=== PATIENT | female | born 1980 ===

== ENCOUNTER 2024-09-14 11:45 | Inpatient (IN) ==
[2024-09-14] MEDS: SODIUM CHLORIDE 0.9% 500 ML IV ONE (12:22)
[2024-09-14] MEDS: METOCLOPRAMIDE HCL INJ 5 MG/ML 2 ML VIAL IV ONE (12:22)
[2024-09-14] MEDS: diphenhydrAMINE 50 MG/ML VIAL IV STA (12:22)
--- NOTE | 2024-09-14 12:23 | Emergency Department Note ---
History of Present Illness General Chief Complaint: Hypertension Time Seen by Provider: 09/14/24 12:05 History of Present Illness Provider complaint: + headache Onset (ago): day(s) 1 Onset description: + gradual Location: + left Severity: moderate Quality: + throbbing, + dull and + constant Relieved By: + nothing Exacerbated By: + none Context: no recent head injury, no tick bite or no recent URI Associated symptoms: + cough; no fever, no nausea, no vomiting, no neck stiffness, no photophobia, no rash, no seizure, no eye redness, no syncope, no vision loss, no numbness, no weakness, no chest pain or no shortness of breath Patient also reports that her blood pressure has been running high.She reports that she has had cough and congestion for the last 2 days. She reports negative COVID test and reports that she was started on prednisone yesterday. Patient also reports palpitations. Patient states she is unsure if she is . Home Medications Medication Instructions Recorded Confirmed Type albuterol sulfate 90 mcg/actuation 2 puff inhalation QID PRN 09/14/24 09/14/24 History aerosol inhaler SOB/Wheezing balsalazide 750 mg capsule 750 mg PO TID 09/14/24 09/14/24 History fluticasone propionate 50 2 spray intranasal BID PRN as 09/14/24 09/14/24 History mcg/actuation nasal directed spray,suspension guaifenesin 600 mg tablet, 600 mg PO AMHS 09/14/24 09/14/24 History extended release 12 hr levothyroxine 100 mcg tablet 100 mcg PO DAILYBB 09/14/24 09/14/24 History loratadine 10 mg tablet (Claritin) 10 mg PO HS 09/14/24 09/14/24 History ozoxownu-hax-obfn-FA-Ca carb-vit K 1 tab PO DAILY 09/14/24 09/14/24 History 18 mg iron-400 mcg-500 mg tablet norethindrone 1 mg-ethinyl 1 tab PO DAILY 09/14/24 09/14/24 History estradiol 20 mcg (21)-iron 75 mg (7) tablet (Eliana Fe 10/17 (28)) omeprazole 20 mg capsule,delayed 20 mg PO QAM 09/14/24 09/14/24 History release prednisone 20 mg tablet 20 mg PO UD 09/14/24 09/14/24 History rosuvastatin 10 mg tablet 10 mg PO QAM 09/14/24 09/14/24 History Allergies Allergy/AdvReac Type Severity Reaction Status Date / Time latex Allergy Mild RASH Verified 09/14/24 15:58 gluten Allergy Unknown Gastrointestinal Verified 09/14/24 15:58 Upset Past Med/Surg History Problem List (Updated 09/14/24 @ 20:15 by Tez Balbuena MD) Hypertensive crisis (Acute) Tachycardia Hypertensive urgency Elevated troponin (Acute) Heart palpitations (Acute) Headache (Acute) Upper respiratory infection Rotator cuff tendinitis Medical History No pertinent past medical history No pertinent family history Surgical History No pertinent past surgical history Social History Smoking Status: Never smoker Hx Alcohol Use: No Hx Substance Use: No Preferred Language: Malagasy Communication Ability: Effective Senior Planning Manager Required: No Beliefs That Will Affect Care: None Current Living Situation: Spouse Current Living Situation Comment: Lives at home with Feels Safe at Home: Yes Safety Concerns: Feels Safe At This Time Assistive Devices: Glasses and Hospital Bed Physical Exam Vital Signs Vital Signs - 24 hr 09/14/24 11:53 09/14/24 12:12 09/14/24 12:14 Temperature 36.7 C Temperature Source Oral Pulse Rate 106 H 105 H Pulse Rate from SpO2 Sensor Respiratory Rate 19 Respiratory Effort / Characteristics Non-Labored Spontaneous Respiratory Depth Normal Respiratory Pattern Regular Blood Pressure 171/110 H Blood Pressure Mean 130 Pulse Oximetry 96 Oxygen Delivery Method Room Air Room Air Sepsis Recent Fever Within 48 Hours No Sepsis New/Unexplained Change in Mental Status N/A Sepsis Action Taken by Nursing No Action Required 09/14/24 12:33 09/14/24 13:00 09/14/24 13:51 Temperature Temperature Source Pulse Rate 98 H 99 H Pulse Rate from SpO2 Sensor 99 H 99 H Respiratory Rate 12 17 Respiratory Effort / Characteristics Respiratory Depth Respiratory Pattern Blood Pressure 174/100 H 133/108 H 165/109 H Blood Pressure Mean 124 116 133 Pulse Oximetry 97 95 Oxygen Delivery Method Room Air Sepsis Recent Fever Within 48 Hours Sepsis New/Unexplained Change in Mental Status Sepsis Action Taken by Nursing 09/14/24 13:57 09/14/24 14:00 09/14/24 14:12 Temperature Temperature Source Pulse Rate 101 H 102 H Pulse Rate from SpO2 Sensor 101 H 103 H Respiratory Rate 15 15 Respiratory Effort / Characteristics Respiratory Depth Respiratory Pattern Blood Pressure 182/104 H Blood Pressure Mean 121 Pulse Oximetry 97 95 Oxygen Delivery Method Room Air Room Air Sepsis Recent Fever Within 48 Hours Sepsis New/Unexplained Change in Mental Status Sepsis Action Taken by Nursing 09/14/24 14:27 09/14/24 14:30 09/14/24 14:45 Temperature Temperature Source Pulse Rate 101 H 103 H Pulse Rate from SpO2 Sensor 101 H 103 H Respiratory Rate 17 15 Respiratory Effort / Characteristics Respiratory Depth Respiratory Pattern Blood Pressure 178/107 H Blood Pressure Mean 135 Pulse Oximetry 96 95 Oxygen Delivery Method Room Air Room Air Sepsis Recent Fever Within 48 Hours Sepsis New/Unexplained Change in Mental Status Sepsis Action Taken by Nursing 09/14/24 15:25 Temperature Temperature Source Pulse Rate 111 H Pulse Rate from SpO2 Sensor Respiratory Rate Respiratory Effort / Characteristics Respiratory Depth Respiratory Pattern Blood Pressure 179/109 H Blood Pressure Mean Pulse Oximetry Oxygen Delivery Method Sepsis Recent Fever Within 48 Hours Sepsis New/Unexplained Change in Mental Status Sepsis Action Taken by Nursing Physical Exam GENERAL: She is oriented to person, place, and time. She appears well-developed and well-nourished. She does not appear distressed. HENT: Exam performed. -Head: Normocephalic and atraumatic. -Right Ear: External ear normal. No mastoid erythema -Left Ear: External ear normal. No mastoid erythema -Mouth/Throat: The oropharynx is clear and moist. No trismus in the jaw. No dental abscesses or uvula swelling. No oropharyngeal exudate or tonsillar abscesses. EYES: Conjunctivae and EOM are normal. Pupils are equal, round, and reactive to light. Right eye exhibits no discharge. Left eye exhibits no discharge. No scleral icterus. NECK: Normal range of motion. Neck supple. No JVD present.No rigidity. No tracheal deviation and normal range of motion present. CV: Normal rate, regular rhythm, normal heart sounds and intact distal pulses. There is no peripheral edema. Palpable radial pulses bue. PULM/CHEST: Effort normal and breath sounds normal. No respiratory distress. No stridor. She has no wheezes. She has no rales. ABD: The abdomen is soft. There is no tenderness. There is no rebound, no guarding. MUSC/SKEL: Normal range of motion. There is no peripheral edema, tenderness or deformity. LYMPH: No cervical adenopathy. NEURO: She is alert and oriented to person, place, and time. She has normal strength. No cranial nerve deficit or sensory deficit. Coordination and gait normal. GCS eye subscore is 4. GCS verbal subscore is 5. GCS motor subscore is 6. Cerebellar tests wnl. SKIN: Skin is warm and dry. She is not diaphoretic. PSYCH: She has a normal mood and affect. Behavior is normal. Judgment and thought content normal. Course Course 1205: The patient was evaluated in room A12. A complete history and physical exam was performed Cardiac monitoring: An order was placed for continuous cardiac monitoring. The monitor shows a rate of 90 with sinus rhythm interpreted by me 1505: Vital signs stable.Labs show leukocytosis of 18.86. Patient is currently on prednisone. D-dimer negative. High-sensitivity troponin elevated at 129.9. Procalcitonin negative. BioFire negative.CT of the head within normal limits. Patient's blood pressure initially improved but then has started going back up again. Patient will be given labetalol dose and admitted to the hospitalist team for hypertensive urgency/elevated troponin. Administered Medications Enoxaparin Sodium (Enoxaparin Inj 40 Mg/0.4 Ml Syr) 40 mg SQ Q24H ETHAN Stop: 10/14/24 17:14 Last Admin: 09/14/24 18:18 Dose: 40 mg Documented By: AEM Discontinued Medications Amlodipine Besylate (Amlodipine Besylate 5 Mg Tab) 5 mg PO NOW ONE Stop: 09/14/24 16:00 Last Admin: 09/14/24 16:35 Dose: 5 mg Documented By: DIYA Diphenhydramine HCl (Diphenhydramine 50 Mg/Ml Vial) 25 mg IV NOW STA Stop: 09/14/24 12:13 Last Admin: 09/14/24 12:22 Dose: 25 mg Documented By: DIYA Sodium Chloride (Nss) 500 mls @ 999 mls/hr IV .Q31M ONE Stop: 09/14/24 12:42 Last Infusion: 09/14/24 13:17 Dose: Infused Documented By: Admin: 09/14/24 12:22 Dose: 999 mls/hr Documented By: DIYA Ketorolac Tromethamine (Ketorolac Tromethamine 15 Mg/Ml Vial) 15 mg IV NOW STA Stop: 09/14/24 15:06 Last Admin: 09/14/24 15:25 Dose: 15 mg Documented By: DIYA Labetalol HCl (Labetalol Hcl Iv 5 Mg/Ml 20ml) 10 mg IV NOW STA Stop: 09/14/24 15:07 Last Admin: 09/14/24 15:25 Dose: 10 mg Documented By: DIYA Metoclopramide HCl (Metoclopramide Hcl Inj 5 Mg/Ml 2 Ml Vial) 5 mg IV ONE ONE Stop: 09/14/24 12:13 Last Admin: 09/14/24 12:22 Dose: 5 mg Documented By: DIYA Medical Decision Making Laboratory Data Attestation: I reviewed the patient's lab results. 09/14/24 12:05 09/14/24 12:05 Lab Results 09/14/24 09/14/24 09/14/24 Range/Units 12:05 12:10 12:30 WBC 18.86 H (4.8-10.8) K/ul RBC 5.03 (4.20-5.40) M/uL Hgb 14.9 (12.0-16.0) g/dl POC Hgb 15.6 (12.0-16.0) g/dl Hct 43.2 (37.0-47.0) % POC Hct 46 (37-47) % MCV 85.9 (80.0-100.0) fL MCH 29.6 (25.0-34.0) pg MCHC 34.5 (32.0-36.0) g/dL RDW Std Deviation 38.6 (36.4-46.3) fL RDW Coeff of Lexi 12.4 (11.5-14.5) % Plt Count 401 H (130-400) K/uL MPV 10.4 (9.4-12.4) fL Immature Gran % (Auto) 0.6 % Neut % (Auto) 91.2 % Lymph % (Auto) 7.3 % [place] % (Auto) 0.7 % Eos % (Auto) 0.0 % Baso % (Auto) 0.2 % Neut # (Auto) 17.19 H (1.40-6.50) K/uL Lymph # (Auto) 1.37 (1.20-3.40) K/uL [place] # (Auto) 0.14 (0.11-0.59) K/uL Eos # (Auto) 0.00 (0.00-0.50) K/uL Baso # (Auto) 0.04 (0.00-0.20) K/uL Immature Gran # (Auto) 0.12 (0.01-0.20) K/uL PT 10.1 (9.0-12.0) Seconds INR 0.9 (0.9-1.1) APTT 24 (21-31) Seconds PTT Ratio 0.9 D-Dimer 460 (0-500) ug/L FEU POC Sodium 140 (135-144) mmol/L Sodium 140 (136-145) mmol/L POC Potassium 3.6 (3.3-5.0) mmol/L Potassium 3.7 (3.5-5.1) mmol/L POC Chloride 105 (101-112) mmol/L Chloride 103 (98-107) mmol/L Carbon Dioxide 24 (21-32) mmol/L POC Total CO2 23 L (24-31) mmol/L Anion Gap 13 H (3-11) POC Anion Gap 16.0 (16-25) mmol/L POC BUN 12 (7-18) mg/dl BUN 12 (6-23) mg/dl Creatinine 0.86 (0.6-1.2) mg/dl POC Creatinine 0.9 (0.6-1.3) mg/dl Est Cr Clr Drug Dosing 92.1 ml/min eGFR 84.32 BUN/Creatinine Ratio 14.0 (10-20) Glucose 128 H (70-99(Fasting)) mg/dl POC Glucose (other) 129 H (70-99) mg/dl Lactate (0.4-2.0) mmol/L Calcium 10.3 (8.6-10.3) mg/dl POC Ioniz Calcium Stoney 1.17 (1.12-1.32) mmol/l Troponin I High Sens 129.9 H* (0-14) pg/ml Lipase 16 (11-82) U/L Procalcitonin < 0.02 (0-0.5) ng/ml Urine Color Yellow Urine Appearance Clear (Clear) Urine pH 6.0 (4.5-7.5) Ur Specific [place] 1.004 (1.000-1.030) Urine Protein Negative (Negative) Urine Glucose (UA) Negative (Negative) Urine Ketones Negative (Negative) Urine Blood Trace H (Negative) Urine Nitrite Negative (Negative) Urine Bilirubin Negative (Negative) Urine Urobilinogen Negative (Negative) Ur Leukocyte Esterase Negative (Negative) Urine WBC (Auto) 0-5 (0-5) /hpf Urine RBC (Auto) 0-2 (0-2) /hpf U Hyaline Cast (Auto) 0-2 (0-2) /lpf U Epithel Cells (Auto) 0-2 (0-2) /hpf Urine Bacteria (Auto) None Seen (None Seen) POC Ur Test (NEG) Adenovirus (PCR) (NotDetected) B. pertussis DNA (PCR) (NotDetected) B.parapertussis DNA PCR (NotDetected) C. pneumoniae DNA (PCR) (NotDetected) Coronavirus OC43 (PCR) (NotDetected) Coronavirus HKU1 (PCR) (NotDetected) Coronavirus 229E (PCR) (NotDetected) SARS-CoV-2 (PCR) (NotDetected) Coronavirus NL63 (PCR) (NotDetected) Human Metapneumovir PCR (NotDetected) Influenza Type A (PCR) (NotDetected) Influenza Type B (PCR) (NotDetected) M. pneumoniae (PCR) (NotDetected) Parainfluenza 1 (PCR) (NotDetected) Parainfluenza 2 (PCR) (NotDetected) Parainfluenza 3 (PCR) (NotDetected) Parainfluenza 4 (PCR) (NotDetected) RSV (PCR) (NotDetected) Entero/Rhino (PCR) (NotDetected) 09/14/24 09/14/24 09/14/24 Range/Units 12:40 13:07 14:33 WBC (4.8-10.8) K/ul RBC (4.20-5.40) M/uL Hgb (12.0-16.0) g/dl POC Hgb (12.0-16.0) g/dl Hct (37.0-47.0) % POC Hct (37-47) % MCV (80.0-100.0) fL MCH (25.0-34.0) pg MCHC (32.0-36.0) g/dL RDW Std Deviation (36.4-46.3) fL RDW Coeff of Lexi (11.5-14.5) % Plt Count (130-400) K/uL MPV (9.4-12.4) fL Immature Gran % (Auto) % Neut % (Auto) % Lymph % (Auto) % [place] % (Auto) % Eos % (Auto) % Baso % (Auto) % Neut # (Auto) (1.40-6.50) K/uL Lymph # (Auto) (1.20-3.40) K/uL [place] # (Auto) (0.11-0.59) K/uL Eos # (Auto) (0.00-0.50) K/uL Baso # (Auto) (0.00-0.20) K/uL Immature Gran # (Auto) (0.01-0.20) K/uL PT (9.0-12.0) Seconds INR (0.9-1.1) APTT (21-31) Seconds PTT Ratio D-Dimer (0-500) ug/L FEU POC Sodium (135-144) mmol/L Sodium (136-145) mmol/L POC Potassium (3.3-5.0) mmol/L Potassium (3.5-5.1) mmol/L POC Chloride (101-112) mmol/L Chloride (98-107) mmol/L Carbon Dioxide (21-32) mmol/L POC Total CO2 (24-31) mmol/L Anion Gap (3-11) POC Anion Gap (16-25) mmol/L POC BUN (7-18) mg/dl BUN (6-23) mg/dl Creatinine (0.6-1.2) mg/dl POC Creatinine (0.6-1.3) mg/dl Est Cr Clr Drug Dosing ml/min eGFR BUN/Creatinine Ratio (10-20) Glucose (70-99(Fasting)) mg/dl POC Glucose (other) (70-99) mg/dl Lactate 1.8 (0.4-2.0) mmol/L Calcium (8.6-10.3) mg/dl POC Ioniz Calcium Stoney (1.12-1.32) mmol/l Troponin I High Sens 85.2 H* D (0-14) pg/ml Lipase (11-82) U/L Procalcitonin (0-0.5) ng/ml Urine Color Urine Appearance (Clear) Urine pH (4.5-7.5) Ur Specific [place] (1.000-1.030) Urine Protein (Negative) Urine Glucose (UA) (Negative) Urine Ketones (Negative) Urine Blood (Negative) Urine Nitrite (Negative) Urine Bilirubin (Negative) Urine Urobilinogen (Negative) Ur Leukocyte Esterase (Negative) Urine WBC (Auto) (0-5) /hpf Urine RBC (Auto) (0-2) /hpf U Hyaline Cast (Auto) (0-2) /lpf U Epithel Cells (Auto) (0-2) /hpf Urine Bacteria (Auto) (None Seen) POC Ur Test NEG (NEG) Adenovirus (PCR) Not Detected (NotDetected) B. pertussis DNA (PCR) Not Detected (NotDetected) B.parapertussis DNA PCR Not Detected (NotDetected) C. pneumoniae DNA (PCR) Not Detected (NotDetected) Coronavirus OC43 (PCR) Not Detected (NotDetected) Coronavirus HKU1 (PCR) Not Detected (NotDetected) Coronavirus 229E (PCR) Not Detected (NotDetected) SARS-CoV-2 (PCR) Not Detected (NotDetected) Coronavirus NL63 (PCR) Not Detected (NotDetected) Human Metapneumovir PCR Not Detected (NotDetected) Influenza Type A (PCR) Not Detected (NotDetected) Influenza Type B (PCR) Not Detected (NotDetected) M. pneumoniae (PCR) Not Detected (NotDetected) Parainfluenza 1 (PCR) Not Detected (NotDetected) Parainfluenza 2 (PCR) Not Detected (NotDetected) Parainfluenza 3 (PCR) Not Detected (NotDetected) Parainfluenza 4 (PCR) Not Detected (NotDetected) RSV (PCR) Not Detected (NotDetected) Entero/Rhino (PCR) Not Detected (NotDetected) Imaging Data Attestation: I personally reviewed and interpreted this imaging study as follows: My Impression: Chest x-ray negative. Airway clear. No pneumothorax. No consolidation. No cardiomegaly or cephalization.. No free air under the diaphragm. No fractures of the skeletal structures. Radiologist's Impression: Chest X-Ray 09/14/24 12:12 XR chest 1V portable HISTORY: 44 years-old Female Chest pain, nonspecific COMPARISON: None TECHNIQUE: AP view of the chest FINDINGS: Cardiomediastinal and hilar silhouettes are within normal limits. There is no pneumothorax, pleural effusion or airspace consolidation. Bones appear grossly intact. IMPRESSION: No acute process. ACT 112: Negative or not required by law. The above report was generated using voice recognition software. It may contain grammatical, syntax or spelling errors. Electronically signed by: Hardik Do M.D. 09/14/2024 12:[address] 09/14/24 12:12 CT head/brain wo con CLINICAL HISTORY: 44 years-old Female with maloney. Acute tension headache TECHNIQUE: Multiple axial CT images of the head were obtained without contrast. A dose lowering technique was utilized adhering to the principles of ALARA. CT DOSE: 625.8 mGy.cm COMPARISON: None. FINDINGS: No acute intracranial hemorrhage, midline shift, extra-axial mass, hydrocephalus, territorial ischemia or abnormal extra-axial collection. 6 mm calcified extra-axial focus adjacent to the left cerebrum on image 18 series 3 may represent a small meningioma. 3.4 cm left middle cranial fossa arachnoid cyst, image 9 series 2. There is only minimal mass effect upon the adjacent temporal lobe. The calvarium is intact. Mild mucosal thickening of the ethmoid air cells and left maxillary sinus with small left maxillary air-fluid level. The mastoid air cells are clear. IMPRESSION: 1. No acute intracranial abnormality. 2. Left middle cranial fossa arachnoid cyst. 3. Mild paranasal sinus disease. ACT 112: Negative or not required by law. The above report was generated using voice recognition software. It may contain grammatical, syntax or spelling errors. Electronically signed by: Hardik Do M.D. 09/14/2024 2:01 PM ECG Data Attestation: I personally reviewed and interpreted this ECG as follows: Rate (beats per minute): 96 Rhythm: normal sinus Findings: no ST depression, no ST elevation or no prolonged QT MDM Narrative 1205: The patient was evaluated in room A12. A complete history and physical exam was performed Cardiac monitoring: An order was placed for continuous cardiac monitoring. The monitor shows a rate of 90 with sinus rhythm interpreted by me 1505: Vital signs stable.Labs show leukocytosis of 18.86. Patient is currently on prednisone. D-dimer negative. High-sensitivity troponin elevated at 129.9. Procalcitonin negative. BioFire negative.CT of the head within normal limits. Patient's blood pressure initially improved but then has started going back up again. Patient will be given labetalol dose and admitted to the hospitalist team for hypertensive urgency/elevated troponin. Impression & Plan Hypertensive crisis, Elevated troponin, Headache, Heart palpitations Discharge Plan Visit Data Chief Complaint: Hypertension ED Provider: Tez Balbuena Discharge Problem: Hypertensive crisis, Elevated troponin, Headache, Heart palpitations Patient Disposition: Admitted As Inpatient Discharge Instructions Interventions: ED Discharge Assessment Last Done: 09/14/24 16:46
[2024-09-14 12:25] LABS: iSTAT Creatinine 0.9 mg/dl (0.6-1.3); iSTAT Hemoglobin 15.6 g/dl (12.0-16.0); iSTAT Ionized Calcium 1.17 mmol/l (1.12-1.32); iSTAT Potassium 3.6 mmol/L (3.3-5.0)
[2024-09-14 12:32] LABS: Hematocrit (blood only) 43.2 % (37.0-47.0); Hemoglobin 14.9 g/dl (12.0-16.0); Mean Corpuscular Hemoglobin 29.6 pg (25.0-34.0); Mean Corpuscular Hgb Conc 34.5 g/dL (32.0-36.0); Mean Corpuscular Volume 85.9 fL (80.0-100.0); Mean Platelet Volume 10.4 fL (9.4-12.4); Platelet Count 401 K/uL (130-400); RDW Coefficient of Variation 12.4 % (11.5-14.5); RDW Standard Deviation 38.6 fL (36.4-46.3); Red Blood Count 5.03 M/uL (4.20-5.40); White Blood Count 18.86 K/ul (4.8-10.8)
--- NOTE | 2024-09-14 12:40 | XRay Report ---
XR chest 1V portable HISTORY: 44 years-old Female Chest pain, nonspecific COMPARISON: None TECHNIQUE: AP view of the chest FINDINGS: Cardiomediastinal and hilar silhouettes are within normal limits. There is no pneumothorax, pleural e ffusion or airspace consolidation. Bones appear grossly intact. IMPRESSION: No acute process. ACT 112: Negative or not required by law. The above report was generated using voice recognition software. It may contain grammatical, syntax o r spelling errors. Electronically signed by: Hardik Do M.D. 09/14/2024 12:39 PM
[2024-09-14 12:48] LABS: Calcium 10.3 mg/dl (8.6-10.3); Creatinine Clr Calc Pharmacy 92.1 ml/min; Potassium 3.7 mmol/L (3.5-5.1)
[2024-09-14 12:55] LABS: Basophils # (auto) 0.04 K/uL (0.00-0.20); Basophils % (auto) 0.2 %; Immature Granulocytes # (auto) 0.12 K/uL (0.01-0.20); Immature Granulocytes % (auto) 0.6 %; Lymphocytes # (auto) 1.37 K/uL (1.20-3.40); Lymphocytes % (auto) 7.3 %; Monocytes # (auto) 0.14 K/uL (0.11-0.59); Monocytes % (auto) 0.7 %; Neutrophils # (auto) 17.19 K/uL (1.40-6.50); Neutrophils % (auto) 91.2 %
[2024-09-14 12:58] LABS: D Dimer 460 ug/L FEU (0-500); INR 0.9 (0.9-1.1); Partial Thromboplastin Ratio 0.9; Partial Thromboplastin Time 24 Seconds (21-31); Prothrombin Time 10.1 Seconds (9.0-12.0); Troponin I High Sensitivity 129.9 pg/ml (0-14)
--- NOTE | 2024-09-14 14:03 | CT Scan Report ---
CT head/brain wo con CLINICAL HISTORY: 44 years-old Female with maloney. Acute tension headache TECHNIQUE: Multiple axial CT images of the head were obtained without contrast. A dose lowering tech nique was utilized adhering to the principles of ALARA. CT DOSE: 625.8 mGy.cm COMPARISON: None. FINDINGS: No acute intracranial hemorrhage, midline shift, extra-axial mass, hydrocephalus, territorial ischemi a or abnormal extra-axial collection. 6 mm calcified extra-axial focus adjacent to the left cerebrum on image 18 series 3 may represent a small meningioma. 3.4 cm left middle cranial fossa arachnoid cys t, image 9 series 2. There is only minimal mass effect upon the adjacent temporal lobe. The calvarium is intact. Mild mucosal thickening of the ethmoid air cells and left maxillary sinus w ith small left maxillary air-fluid level. The mastoid air cells are clear. IMPRESSION: 1. No acute intracranial abnormality. 2. Left middle cranial fossa arachnoid cyst. 3. Mild paranasal sinus disease. ACT 112: Negative or not required by law. The above report was generated using voice recognition software. It may contain grammatical, syntax o r spelling errors. Electronically signed by: Hardik Do M.D. 09/14/2024 2:01 PM
[2024-09-14 14:30] LABS: Adenovirus PCR Not Detected (NotDetected); Bordetella parapertussis PCR Not Detected (NotDetected); Bordetella pertussis PCR Not Detected (NotDetected); Chlamydia pneumoniae PCR Not Detected (NotDetected); Coronavirus 229E PCR Not Detected (NotDetected); Coronavirus CoV-2 (COVID19)PCR Not Detected (NotDetected); Coronavirus HKU1 PCR Not Detected (NotDetected); Coronavirus NL63 PCR Not Detected (NotDetected); Coronavirus OC43PCR Not Detected (NotDetected); Human Metapneumovirus PCR Not Detected (NotDetected); Influenza A PCR Not Detected (NotDetected); Influenza B PCR Not Detected (NotDetected); Mycoplasma pneumoniae PCR Not Detected (NotDetected); Parainfluenza Virus 1 PCR Not Detected (NotDetected); Parainfluenza Virus 2 PCR Not Detected (NotDetected); Parainfluenza Virus 3 PCR Not Detected (NotDetected); Parainfluenza Virus 4 PCR Not Detected (NotDetected); Respiratory Syncytial VirusPCR Not Detected (NotDetected); Rhinovirus/Enterovirus PCR Not Detected (NotDetected)
--- NOTE | 2024-09-14 15:15 | History & Physical Report ---
Date of Service September 14, 2024 Assessment & Plan (1) Hypertensive urgency: (2) Heart palpitations: (3) Tachycardia: (4) Elevated troponin: (5) Upper respiratory infection: Plan Vanesa Casas is a 44-year-old female with past medical history significant for acquired hypothyroidism, dyslipidemia, GERD with esophagitis, Crohn's disease, low back pain with right-sided sciatica and exercise induced asthma who presented to the ED via EMS on 09/14/2024 for evaluation of multiple complaints including headache, heart palpitations and upper respiratory tract infection symptoms. 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 She started to feel a bit shaky and "off" prior to a performance she did earlier today at school. She noticed that her heart rate was significantly elevated at 170bpm on her Apple Watch during the performance. She also started to develop a pounding headache, heart palpitations, left-sided neck pain and tension between her shoulder blades during the performance. She also noticed some tingling in both of her hands when the headache started but this has since resolved. She also felt somewhat short of breath during this episode during her performance however that has also since resolved. Patient notes a considerable amount of stress at work lately. Hypertensive Urgency, Headache: BP significantly elevated on presentation at 171/110mmHg. Head CT did incidentally note a 3.4cm left middle cranial fossa arachnoid cyst without any evidence of ICH or midline shift. She received a headache cocktail in the ED consisting of IV Reglan, IV Toradol and IV Benadryl with improvement of her headache. Received 10 mg of IV labetalol in the ED at 15:25. BP was 165/105mmHg at time of our assessment. Ordered 5mg po amlodipine to be given in the ED. Will start patient on 5mg po amlodipine daily beginning tomorrow AM. Close BP monitoring. PRN IV labetalol 10mg Q4H for SBP>165. PRN pain control. Heart Palpitations/Tachycardia, Elevated Troponin: Palpitations seem to have resolved. Tachycardia noted on presentation with a heart rate of 107bpm. HR still in the low 100s at the time of our assessment - sinus tachycardia seen on telemetry. Initial troponin 129.9, repeat troponin improved to 85.2; presenting EKG without any evidence of acute ST changes. Will continue to trend troponin Q6H x 3. Obtain resting echocardiogram. EKG daily x 2. EKG with chest pain PRN. Would benefit from cardiology consult if her echo results were to come back abnormal and/or her troponin level were to rise. URI Symptoms - Likely Viral Infection: Patient was prescribed an oral prednisone taper course yesterday (09/13) due to suspected viral upper respiratory tract infection. She has been dealing with a cough, sinus congestion and wheezing since last Thursday. Wheezing has improved on the oral prednisone course however she still has an ongoing cough in addition to sinus congestion. Leukocytosis noted on presentation with WBC count of 18k - likely secondary to prednisone use. Procalcitonin negative. Presenting CXR unremarkable, respiratory BioFire panel also negative. Head CT notes mild paranasal sinus disease. Low suspicion for overlying bacterial infection at this time. Hold prednisone for now ISO hypertension. Continue supportive measures with scheduled Claritin, Flonase and Mucinex. Encourage use of incentive spirometer and flutter valve. Other Chronic Medical Conditions: * Crohn's Disease - Continue balsalazide. GERD - Continue omeprazole. * Hypothyroidism - Check TSH in AM, continue levothyroxine. HLD - Continue rosuvastatin. DVT Prophylaxis: SQ Lovenox Code Status: FULL CODE PCP: Brigido Pérez MD Disposition: Admit to Med/Telemetry Patient seen in collaboration with Dr. Caldera. Please see addendum. I spent a total of 50 minutes coordinating, documenting, and providing care for this patient excluding time spent in the performance of separately billed services. This included personally reviewing all current laboratories and imaging studies, medical reconciliation, outpatient chart review and discussion with specialists. This chart was completed in part utilizing Speech Voice Recognition Software. Grammatical errors, random word insertions, pronoun errors, and incomplete sentences are an occasional consequence of this system due to software limitations, ambient noise, and hardware issues. Any formal questions or concerns about the content, text, or information contained within the body of this dictation should be directly addressed to the provider for clarification. History of Present Illness Chief Complaint: Headache, Palpitations & URI Symptoms Primary Care Provider: Brigido Pérez MD Vanesa Casas is a 44-year-old female with past medical history significant for acquired hypothyroidism, dyslipidemia, GERD with esophagitis, Crohn's disease, low back pain with right-sided sciatica and exercise induced asthma who presented to the ED via EMS on 09/14/2024 for evaluation of multiple complaints including headache, heart palpitations and upper respiratory tract infection symptoms. History obtained from the patient and associated chart review. Patient seen at bedside with Dr. Caldera. 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 She started to feel a bit shaky and "off" prior to a performance she did earlier at school. She noticed that her heart rate was significantly elevated at 170bpm on her Apple Watch during the performance. She also started to develop a "pounding" headache, heart palpitations, left-sided neck pain and tension between her shoulder blades during the performance. She also noticed some tingling in both of her hands when the headache started but this has since resolved. She also felt somewhat short of breath during this episode during her performance however that has also since resolved. Patient mentions that she is currently being treated for a suspected viral upper respiratory tract infection with an oral prednisone taper course which she was prescribed yesterday by her PCP. She has been dealing with a cough, sinus congestion and wheezing since last Thursday. She reports that her wheezing has improved on the oral prednisone course however she still has an ongoing cough in addition to persistent sinus congestion. She was taking Mucinex at home and using Vicks VapoRub with some relief. She does wear a mask rather routinely as her is a kidney transplant recipient. She endorses some stress with work lately which she thinks may be contributing to her symptoms. She denies any chest pain, recent fevers, abdominal pain or urinary/bowel habit changes. Tachycardia noted on presentation with a heart rate of 107bpm. BP also significantly elevated on presentation at 171/110mmHg. HR still in the low 100s at the time of our assessment - sinus tachycardia seen on telemetry. Received 10 mg of IV labetalol in the ED at 15:25. BP was 165/105mmHg at time of our assessment. Initial laboratory workup notable for leukocytosis with white blood cell count of 18.8k and troponin of 129.9; presenting EKG without any evidence of acute ST changes and repeat troponin improved to 85.2 at 14:33. Chest x-ray is unremarkable and respiratory BioFire panel was negative. Elevation in white blood cell count likely related to recent prednisone use. Head CT was notable for a 3.4cm left middle cranial fossa arachnoid cyst and mild paranasal sinus disease. She received a headache cocktail in the ED consisting of IV Reglan, IV Toradol and IV Benadryl with improvement of her headache. Allergies Allergy/AdvReac Type Severity Reaction Status Date / Time latex Allergy Mild RASH Verified 09/14/24 15:58 gluten Allergy Unknown Gastrointestinal Verified 09/14/24 15:58 Upset Home Medications Medication Instructions Recorded Confirmed Type albuterol sulfate 90 mcg/actuation 2 puff inhalation QID PRN 09/14/24 09/14/24 History aerosol inhaler SOB/Wheezing balsalazide 750 mg capsule 750 mg PO TID 09/14/24 09/14/24 History fluticasone propionate 50 2 spray intranasal BID PRN as 09/14/24 09/14/24 Histor y mcg/actuation nasal directed spray,suspension guaifenesin 600 mg tablet, 600 mg PO AMHS 09/14/24 09/14/24 History extended release 12 hr levothyroxine 100 mcg tablet 100 mcg PO DAILYBB 09/14/24 09/14/24 History loratadine 10 mg tablet (Claritin) 10 mg PO HS 09/14/24 09/14/24 History [id number] carb-vit K 1 tab PO DAILY 09/14/24 09/14/24 History 18 mg iron-400 mcg-500 mg tablet norethindrone 1 mg-ethinyl 1 tab PO DAILY 09/14/24 09/14/24 History estradiol 20 mcg (21)-iron 75 mg (7) tablet (Eliana Fe 10/17 (28)) omeprazole 20 mg capsule,delayed 20 mg PO QAM 09/14/24 09/14/24 History release prednisone 20 mg tablet 20 mg PO UD 09/14/24 09/14/24 History rosuvastatin 10 mg tablet 10 mg PO QAM 09/14/24 09/14/24 History Past Med/Surg History Problem List (Updated 09/14/24 @ 16:39 by Delmy Martinez PA-C) Tachycardia Hypertensive urgency Elevated troponin Heart palpitations Headache Upper respiratory infection Rotator cuff tendinitis Medical History No pertinent past medical history No pertinent family history Surgical History No pertinent past surgical history Social History Smoking Status: Never smoker Hx Alcohol Use: No Hx Substance Use: No Preferred Language: Malay Communication Ability: Effective Airfield Services Officer Required: No Beliefs That Will Affect Care: None Current Living Situation: Spouse Current Living Situation Comment: Lives at home with Feels Safe at Home: Yes Safety Concerns: Feels Safe At This Time Assistive Devices: Glasses and Hospital Bed Review of Systems Review of Systems: At least ten systems reviewed and negative, except as noted in the HPI. Physical Exam Physical Exam: Please refer to Dr. Caldera's addendum for physical examination findings. Results & Data Results & Data Vital Signs (Past 12 Hours) Vital Signs Temp Pulse Resp BP Pulse Ox O2 Del Method 09/14/24 14:45 103 H 15 95 Room Air 09/14/24 14:30 178/107 H 09/14/24 14:27 101 H 17 96 Room Air 09/14/24 14:12 102 H 15 95 Room Air 09/14/24 14:00 182/104 H 09/14/24 13:57 101 H 15 97 Room Air 09/14/24 13:51 165/109 H 09/14/24 13:00 99 H 17 133/108 H 95 09/14/24 12:33 98 H 12 174/100 H 97 Room Air 09/14/24 12:14 105 H 09/14/24 12:12 Room Air 09/14/24 11:53 36.7 C 106 H 19 171/110 H 96 Room Air Laboratory Results Short CBC 09/14/24 Range/Units 12:05 WBC 18.86 H (4.8-10.8) K/ul Hgb 14.9 (12.0-16.0) g/dl Hct 43.2 (37.0-47.0) % Plt Count 401 H (130-400) K/uL BMP 09/14/24 12:05 Sodium 140 Potassium 3.7 Chloride 103 Carbon Dioxide 24 BUN 12 Creatinine 0.86 Glucose 128 H Calcium 10.3 Diagnostic Findings Chest X-Ray 09/14/24 12:12 XR chest 1V portable HISTORY: 44 years-old Female Chest pain, nonspecific COMPARISON: None TECHNIQUE: AP view of the chest FINDINGS: Cardiomediastinal and hilar silhouettes are within normal limits. There is no pneumothorax, pleural effusion or airspace consolidation. Bones appear grossly intact. IMPRESSION: No acute process. ACT 112: Negative or not required by law. The above report was generated using voice recognition software. It may contain grammatical, syntax or spelling errors. Electronically signed by: Hardik Do M.D. 09/14/2024 12:[address] 09/14/24 12:12 CT head/brain wo con CLINICAL HISTORY: 44 years-old Female with maloney. Acute tension headache TECHNIQUE: Multiple axial CT images of the head were obtained without contrast. A dose lowering technique was utilized adhering to the principles of ALARA. CT DOSE: 625.8 mGy.cm COMPARISON: None. FINDINGS: No acute intracranial hemorrhage, midline shift, extra-axial mass, hydrocephalus, territorial ischemia or abnormal extra-axial collection. 6 mm calcified extra-axial focus adjacent to the left cerebrum on image 18 series 3 may represent a small meningioma. 3.4 cm left middle cranial fossa arachnoid cyst, image 9 series 2. There is only minimal mass effect upon the adjacent temporal lobe. The calvarium is intact. Mild mucosal thickening of the ethmoid air cells and left maxillary sinus with small left maxillary air-fluid level. The mastoid air cells are clear. IMPRESSION: 1. No acute intracranial abnormality. 2. Left middle cranial fossa arachnoid cyst. 3. Mild paranasal sinus disease. ACT 112: Negative or not required by law. The above report was generated using voice recognition software. It may contain grammatical, syntax or spelling errors. Electronically signed by: Hardik Do M.D. 09/14/2024 2:01 PM Medications Administered Discontinued Medications Diphenhydramine HCl (Diphenhydramine 50 Mg/Ml Vial) 25 mg IV NOW STA Stop: 09/14/24 12:13 Last Admin: 09/14/24 12:22 Dose: 25 mg Documented By: DIYA Sodium Chloride (Nss) 500 mls @ 999 mls/hr IV .Q31M ONE Stop: 09/14/24 12:42 Last Infusion: 09/14/24 13:17 Dose: Infused Documented By: Admin: 09/14/24 12:22 Dose: 999 mls/hr Documented By: DIYA Metoclopramide HCl (Metoclopramide Hcl Inj 5 Mg/Ml 2 Ml Vial) 5 mg IV ONE ONE Stop: 09/14/24 12:13 Last Admin: 09/14/24 12:22 Dose: 5 mg Documented By: DIYA Code Status & VTE Plan Code Status FULL CODE Supervising Physician Co-Signing Physician Notes Patient seen and examined Reports URI symptoms and was started on prednisone 60mg for past 2 days Reports intermittent left sided neck pain/back pain which she associated with stress but today while at work, developed frontal headache with worsening left neck pain/back pain associated with left hand tingling Denied chest pain On exam, General: Well hydrated, no acute distress and not ill appearing Eyes: PERRL, conjunctivae normal, not pale, anicteric sclerae, EOM intact bilaterally ENMT: External ear and nose normal, oropharynx normal Neck: Normal visual inspection, no tracheal deviation, no tenderness on palpation Respiratory: Normal respiratory effort, no respiratory distress, lungs clear to auscultation, no crackles and no wheezes Cardiovascular: RRR S1 S2 Gastrointestinal (Abdomen): Abdomen is not distended, soft, non-tender to palpation, no guarding, no palpable hepatosplenomegaly, normal bowel sounds Musculoskeletal: No pedal edema Neurologic: Alert and oriented x 3, No focal weakness, sensation grossly intact Psychiatric: Euthymic affect Labs notable for WBC 18K, Trop 85 CT head did not show any acute abnormality but noted left midline cranial fossa arachnoid cyst, mild paranasal sinus disease. Elevated blood pressure Start amlodipine 5mg daily for hypertension and monitor Stop prednisone for now and monitor Continue antihistamine Tele monitor Trend trop. TTE Reviewed CT findings with patient I spent a total of 50 minutes coordinating, documenting and providing care for this patient excluding time spent in performance of separately billed services (5) Upper respiratory infection URI type: unspecified viral URI Qualified Code(s): J06.9 - Acute upper respiratory infection, unspecified
[2024-09-14] MEDS: LABETALOL HCL IV 5 MG/ML 20ML IV STA (15:25)
[2024-09-14] MEDS: KETOROLAC TROMETHAMINE 15 MG/ML VIAL IV STA (15:25)
[2024-09-14 16:01] LABS: Appearance Urine Clear (Clear); Bacteria Urine Automated None Seen (None Seen); Bilirubin Urine Negative (Negative); Blood Urine Trace (Negative); Cast Urine Automated 0-2 /lpf (0-2); Color Urine Yellow; Epithelial Cell Urine Auto 0-2 /hpf (0-2); Glucose Urine UA Negative (Negative); Ketones Urine Negative (Negative); Leukocyte Esterase Urine Negative (Negative); Nitrite Urine Negative (Negative); Protein Urine Negative (Negative); RBC Urine Automated 0-2 /hpf (0-2); Specific Gravity Urine 1.004 (1.000-1.030); Urobilinogen Urine Negative (Negative); WBC Urine Automated 0-5 /hpf (0-5)
[2024-09-14] MEDS: amLODIPine BESYLATE 5 MG TAB PO ONE (16:35)
[2024-09-14] MEDS ORDERED: LABETALOL HCL IV 5 MG/ML 20ML IV PRN (17:06)
[2024-09-14] MEDS ORDERED: POLYETHYLENE (MIRALAX) 17 GM PACK PO PRN (17:06)
[2024-09-14] MEDS ORDERED: KETOROLAC TROMETHAMINE 15 MG/ML VIAL IV PRN ×2 (17:06→21:00)
[2024-09-14] MEDS ORDERED: NITROGLYCERIN SL 0.4 MG/TAB TAB SL PRN (17:06)
[2024-09-14] MEDS ORDERED: ONDANSETRON INJ 2 MG/ML 2 ML VIAL IV PRN (17:06)
[2024-09-14 17:13] VITALS: RESP 18
[2024-09-14] MEDS: ENOXAPARIN INJ 40 MG/0.4 ML SYR SQ SCH (18:18)
[2024-09-14] MEDS: LORATADINE 10 MG TAB PO SCH (21:14)
[2024-09-14] MEDS: guaiFENesin 600 MG TABCR PO SCH (21:15)
--- OUTSIDE RECORDS SUMMARY | 2024-09-14 23:29 | External Medical Summary | Summary of Care ---
Author Name Unknown Organization [facility] Address [address] [facility] [place] [address] Phone [phone] Care Team Providers Care Salesforce Consultant Name Role Phone Brigido Pérez MD Primary Care Provider + Reason for Visit * Reason Comments Medical Nutrition Therapy Follow Up Encounter Details Date Type Department Care Team (Latest Contact Info) Description 07/20/2024 3:30 PM EDT [facility] [address] [place] [id number] Courtney Mendoza, MONICA [address] [place] [id number] Obesity, Class I, BMI 30-34.9*; Crohn's disease of small intestine without complication (HCC); Dietary counseling and surveillance Allergies Active Allergy Reactions Criticality Noted Date Comments Adhesive Tape Rash 09/07/2018 Amoxicillin-Pot Clavulanate Diarrhea 01/20/20 19 Citalopram Hydrobromide Tachycardia 10/03/2013 Gluten 04/20/2014 Gluten Meal 09/07/2017 Latex Rash 08/02/2013 Sulfa Antibiotics Rash 03/20/2016 documented as of this encounter (statuses as of 07/20/2024) Medications Medication Sig Dispensed Refills Start Date End Date Status WOMENS MULTI VITAMIN & MINERAL PO TABS once daily Active Probiotic Product (PROBIOTIC & ACIDOPHILUS EX ST) Capsule Take 1 Cap by mouth daily. Active Loratadine 10 MG Oral Tablet Take 1 Tablet by mouth in the morning. 30 Tab 11 02/03/2020 Active fluticasone (FLONASE) 50 MCG/ACT nasal spray INSTILL 2 SPRAYS INTO EACH NOSTRIL TWICE DAILY 16 g 5 03/15/2020 Active Additional Information Patient not taking.Reported on 07/14/2024 LORazepam 0.5 MG Oral Tablet (Ativan)Indications: Irritable bowel syndrome, unspecified type,REANNA (generalized anxiety disorder) 1 TABLET EVERY 8 HOURS NEEDED FOR ANXIETY 20 Tablet 11/09/2021 Active D3-1000 25 MCG (1000 UT) Oral Capsule (Cholecalciferol) Take 1 Capsule by mouth in the morning. Active Ondansetron HCl 4 MG Oral TabletIndications:Be nign paroxysmal positional vertigo, unspecified laterality Take 1 Tablet by mouth every 6 hours as needed for Nausea. 30 Tablet 07/06/2023 Active Albuterol Sulfate HFA 108 (90 Base) MCG/ACT Inhalation Aerosol SolutionIndications: Bronchospasm, exercise-induced Inhale 2 Puffs by mouth in the morning and 2 Puffs at noon and 2 Puffs in the evening and 2 Puffs before bedtime. 8 g 3 10/07/2023 Active Eliana FE 10/17 1-20 MG-MCG Oral Tablet (Norethin Julian-Eth Estrad-FE)Indication s:General counseling for prescription of oral contraceptives TAKE 1 TABLET DAILY 84 Tablet 3 11/16/2023 Active Rosuvastatin Calcium 10 MG Oral Tablet (Crestor) Take 1 Tablet by mouth in the morning. 90 Tablet 3 12/09/2023 Active Levothyroxine Sodium 100 MCG Oral Tablet (Levoxyl) TAKE 1 TABLET BY MOUTH ONCE DAILY IN THE MORNING AT LEAST 30 MINUTES PRIOR TO BREAKFAST/OTHER MEDS 90 Tablet 3 02/09/2024 Active Omeprazole 20 MG Oral Capsule Delayed Release (PriLOSEC) TAKE 1 CAPSULE IN THE MORNING 90 Capsule 1 06/17/2024 Active Balsalazide Disodium 750 MG Oral CapsuleIndications:C rohn's disease of small intestine without complication (HCC) TAKE 1 CAPSULE IN THE MORNING, 1 CAPSULE AT NOON AND 1 CAPSULE BEFORE BEDTIME 270 Capsule 1 07/04/2024 Active predniSONE 10 MG Oral Tablet (Deltasone)Indicatio ns:Dermatitis Take 5 tabs for 2 days, 4 tabs for 2 days, 3 tabs for 2 days, 2 tabs for 2 days 1 tab for 2 days 30 Tablet 07/08/2024 Active COVID-19 At Home Antigen Test In Vitro KitIndications:Viral URI with cough Use as directed. 1 Each 07/08/2024 Active Azithromycin 250 MG Oral Tablet (Zithromax Z-Brad)Indications:Br onchitis, complicated Take two tablets by mouth on first day, then 1 tablet daily until gone 6 Tablet 07/14/2024 Active documented as of this encounter (statuses as of 07/20/2024) Active Problems Problem Noted Date Diagnosed Date Dyslipidemia, goal LDL below 70 12/10/2023 Crohn's disease of small intestine without compl ication 11/25/2022 Need for pneumococcal vaccination 11/25/2022 History of lumbar laminectomy 05/21/2019 Well adult exam 12/12/2016 Overview: 08/20 colon WNL benoit 3y 2020--BMP not covered as screening lab 10.19 colon WNL. Benoit 3y due to Crohns 12/13 had kidney transplant. Low back pain with right-sided sciatica 12/13/19 17 Overview: 08/13- xray L4-s1 DDD Bartholin's gland cyst 01/31/2016 Crohn's disease 11/04/2011 Gastroesophageal reflux disease with esophagitis 11/04/2011 Acquired hypothyroidism 07/01/2010 documented as of this encounter (statuses as of 07/20/2024) Immunizations Name Administration Dates Next Due COVID-19 mRNA, LNP-s, No Pre serve, 2-Dose Series (TroopSwap) 07/02/2022,08/14/2021,12/15/2020,2020 Pneumococcal Conjugate Vacci ne, 20-valent ([id number]) 11/25/2022 Seasonal Influenza Vac., MDV , IM, 0.5 mL (Fluzone) 08/03/2014,08/22/2013,06/23/2012,2010,07/01/2010 Seasonal Influenza, PF, 6 M & above, IM , (FluLaval or Fluzone) 07/23/2023,07/24/2022,08/09/2021,2019,06/29/2019,07/28/2018,07/23/2017 Seasonal Influenza, Quadriva lent, No Preserve, IM 08/08/2016,08/17/2015 TDAP (age 10 and older)(Boostrix) 11/09/2021 TDAP, Age 7 and older, IM (Adacel) 09/02,07/01/2010(Deferred: Patient Refused) documented as of this encounter Social History Tobacco Use Types Packs/Day Years Used Date Smoking Tobacco: Never Smokeless Tobacco: Never Alcohol Use Standard Drinks/Week Comments Yes 0 (1 standard drink = 0.6 oz pur e alcohol) rarely PHQ-2 Answer Date Recorded PHQ Adult Total Score 0 12/09/2023 Hunger Vital Sign Answer Date Recorded Within the past 12 months, y ou worried that your food would run out before you got the money to buy more. Never true 12/08/19 24 Within the past 12 months, t he food you bought just didn't last and you didn't have money to get more. Never true 12/08/2023 Childcare Answer Date Recorded Do you feel overwhelmed with taking care of a child, family member or friend? No 12/08/2023 Does your family need help f inding childcare? (Household - for ages 0-17 years) Not on file 12/08/2023 Clothing Answer Date Recorded Have you been unable to get clothing when it was really needed? Yes 12/08/2023 Is your family able to get c lothes or diapers when needed? (Household - for ages 0-17 years) Not on file 12/08/2023 Personal Safety Answer Date Recorded Do you feel unsafe or have concerns for your saf ety? No 12/08/2023 Do you have concerns for you r family's safety? (Household - for ages 0-17 years) Not on file 12/08/2023 Utilities Answer Date Recorded Do you have trouble paying y our heating, water, or electric bill? No 12/08/2023 Is your family able to pay t he heat, water, or electric bill? (Household - for ages 0-17 years) Not on file 12/08/2023 Does your family have access to good internet? (Household - for ages 0-17 years) Not on file 12/08/2023 Employment Status Answer Date Recorded Are you unemployed or without regular income? No 12/08/2023 Does the household have a re gular source of income? (Household - for ages 0-17 years) Not on file 12/08/2023 Social Connections Answer Date Recorded How often do you feel lonely or isolated from th ose around you? Never 12/08/2023 Financial Resource Strain Answer Date R ecorded Do you have any trouble payi ng for your medications, or do you think you might in the future? No 12/08/2023 Does your family have troubl e paying for medicine? (Household - for ages 0-17 years) Not on file 12/08/2023 Transportation Needs Answer Date Record ed READ ONLY Do you have troubl e getting a ride to medical visits or work? Never True 12/08/2023 Does your family have a hard time getting a ride to doctors visits? (Household - for ages 0-17 years) Not on file 12/08/2023 Has lack of transportation k ept you from medical appointments, meetings, work, or from getting things needed for daily living? Check all that apply. (Adult - for ages 18 years and over) Not on file 12/08/2023 Do you (or your family) have trouble finding or paying for a ride (transportation)? (Household - for ages 0-17 years) Not on file 12/08/2023 Housing Stability Answer Date Recorded Do you currently live in a s helter or have no steady place to sleep at night? No 12/08/2023 READ ONLY Do you think you a re at risk of becoming homeless? No 12/08/2023 Does your family worry about paying for your home or becoming homeless? (Household - for ages 0-17 years) Not on file 0 12/08/2023 Are you homeless or worried that you might be in the future? (Adult - for ages 18 years and over) Not on file Are you (or your family) antolin eless or worried that you might be in the future? (Household - for ages 0-17 years) Not on file Food Insecurity Answer Date Recorded Do you need food for this week? No 12/08/2023 Are you able to get enough f ood for your family? (Household - for ages 0-17 years) Not on file 12/08/2023 Does your family need food t his week? (Household - for ages 0-17 years) Not on file 12/08/2023 Do you always have enough fo od for your family? (Household - for ages 0-17 years) Not on file 12/08/2023 Sex and Gender Information Value Date Recorded Sex Assigned at Female 01/28/2019 8:43 AM EDT Gender Identity Female 01/28/2019 8:43 AM EDT Sexual Orientation Straight 01/28/2019 8: 43 AM EDT Job Start Date Occupation Industry Not on file Not on file Not on file documented as of this encounter Last Filed Vital Signs Vital Sign Reading Time Taken Comments Blood Pressure - - Pulse - - Temperature - - Respiratory Rate - - Oxygen Saturation - - Inhaled Oxygen Concentration - - Weight 90.3 kg (199 lb) 07/20/2024 3:51 PM EDT Height 165.1 cm (5' 5") 07/20/2024 3:51 PM EDT Body Mass Index 33.12 07/20/2024 3:51 PM EDT documented in this encounter Functional Status Functional Status Response Date of Assess ment Are you deaf or do you have serious difficulty h earing? No 08/09/2018 Are you blind or do you have serious difficulty seeing, even when wearing glasses? No 08/09/2018 Do you have serious difficul ty walking or climbing stairs? (5 years old or older) No 08/09/2018 Do you have difficulty dress ing or bathing? (5 years old or older) No 08/09/2018 Because of a physical, menta l, or emotional condition, do you have difficulty doing errands alone such as visiting a doctor s office or shopping? (15 years old or older) No 08/09/20 18 Cognitive Status Response Date of Assessm ent Because of a physical, menta l, or emotional condition, do you have serious difficulty concentrating, remembering, or making decisions? (5 years old or older) No 08/09/2018 documented as of this encounter Patient Instructions * Patient Instructions* Courtney Mendoza RDN - 07/20/2024 3:55 PM EDT Patient will add a short session of yoga at least 1 time a week to current activity regimen. Patient will add a high-protein food to AM meal and eat a substantial noontime meal (see handout). Aim for no more than 4 ounces of meat at evening meal. Patient will continue to decrease intake of processed foods Patient will include a serving of fruit and a serving of vegetables daily at least 4 times a week. documented in this encounter Progress Notes * Courtney Mendoza RDN - 07/20/2024 3:35 PM EDT NUTRITION FOLLOW-UP NOTE - OUTPATIENT [facility] Name: Vanesa Casas Location: [facility] Date: 07/20/2024 Time: 3:35 PM Patient was identified by name and date. Patient was seen [id number] in the clinic. Reason for Nutrition Follow-up: Overweight/Obesity NUTRITION ASSESSMENT: Client History Patient is a 43 year old female being seen for above issue. She was recently seen by provider at Urgent Care for respiratory symptoms. Patient states she had 2 recent flares of her Crohn's. 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-chicken sometimes with cheese and/or almeida, green beans, potato or rice, water or zero sugar sergio kassandra Snacks: mini Theresa miniatures or fruit snack or low-sugar fruit popsicle-puree fruit Drinks: water-64 ounces, coffee in AM, 1 caffeinated beverage daily Restaurant meals: once a week Alcohol: None Tobacco Use: No Drug Use: No Diet Recall/Food Logs Indicate: AREAS FOR IMPROVEMENT: Poor meal distribution Inadequate fiber intake Inadequate fruit and vegetable intake POSITIVE: Uses calorie free beverages Adequate fluid intake Food and Nutrient Intake and other pertinent information: Patient states she has been trying to decrease her intake of processed foods. She has been eating a small AM meal. She is asking for ideas for meals. She recently has been complaining of having too much acid in her stomach and states she feels out of balance. She reports planning her meals is an issue. She admits to eating unhealthy foods if she has them in the house, states, "I have no will power." She admits to using food as a way to deal with stress, fatigue, or a headache. States her weight has been fluctuating from 189-199 lbs recently. Medications Changes/Updates: taking prednisone and Z-pack currently for respiratory illness Nutrition-Focused Physical Findings Overall appearance: overweight/obese Digestive system: Abdominal distention, Abdominal pain/tenderness, Appetite: good, GERD Nerves and cognition: Awake, alert and Oriented Anthropometric Measurements Current Weight: Wt Readings from Last 1 Encounters: 07/20/24 90.3 kg (199 lb) Wt Readings from Last 4 Encounters: 07/20/24 90.3 kg (199 lb) 07/14/24 88.4 kg (194 lb 12.8 oz) 04/29/24 88.5 kg (195 lb 1.6 oz) 04/27/24 89 kg (196 lb 3.2 oz) Weight Change: increased by 4 pounds in the past 2 1/2 months per EPIC review BMI Readings from Last 1 Encounters: 07/20/24 33.12 kg/m Biochemical Data, Medical Tests, and Procedures No current labs since last visit Previous Nutrition Diagnosis: Overweight/obesity related to varying caloric intake and high intake of processed foods as evidenced by Reported diet and/or activity recall, Body mass index is 32.47 kg/m. Progress towards goals: Patient will add a high-protein food to current breakfast, such as PB sandwich or egg sandwich or high-protein shake-try not to skip. Partially MET Patient will decrease intake of processed foods. For snacks try ripe fruit with nuts or PB or low-fat cheese or a high-protein shake. MET Patient will do only 1 type of exercise daily such as pilates OR yoga OR treadmill. For other activity do light walking or light stretching. Partially MET except when pt was ill. Patient will continue reviewing nutrition labels. Keep in mind fat is twice as high in calories compared to carb's and protein. MET CURRENT NUTRITION DIAGNOSIS Overweight/obesity related to Poor meal distribution, Inadequate fiber intake, Inadequate fruit andvegetable intake, and multiple questions about what she should be eating as evidenced by Reported diet and/or activity recall, Body mass index is 33.12 kg/m. NUTRITION INTERVENTION: NUTRITION EDUCATION Initial/brief nutrition education NUTRITION COUNSELING Strategies Nutrition Prescription: Diet: Weight Management Daily Calorie Needs: [id number] Kcals Daily Protein Needs: 60-65 Grams protein Current Goals: Patient will add a short session of yoga at least 1 time a week to current activity regimen. Patient will add a high-protein food to AM meal and eat a substantial noontime meal (see handout). Aim for no more than 4 ounces of meat at evening meal. Patient will continue to decrease intake of processed foods Patient will include a serving of fruit and a serving of vegetables daily at least 4 times a week. Dietitian Action: Encouraged patient to add a high-protein food to breakfast and lunch. Encouraged her to include no more than 4 ounces of cooked meat at evening meal. Encouraged her to continue to decrease intake of processed foods, and to include a serving of fruit and a serving of vegetables daily to most meals. Discussed that increased reflux symptoms may be related to use of prednisone; she reports she took her last dose this week. She is asking how much protein, carb's, and fat she shouldbe eating-suggested 60-65 grams of protein daily. Encouraged her to avoid counting carb's and fat for now and monitor portions of food for now. She asks how much fluid she should be drinking-recommended 64 ounces daily. Encouraged her to include a session of yoga to increase activity and help to manage stress-she is receptive. Ideas for lunch and evening meals provided (refer to handouts above). Other Education Material: ideas for lunch, ideas for planning meals, custom made menu done for pt at her request Recommendations to Ordering Provider: Continue current plan of nutrition care. NUTRITION MONITORING AND EVALUATION: The following will be monitored and evaluated at the next visit: Monitor weight. Monitor goals and progress. Monitor activity regimen. Plan: Patient scheduled to return in 4 months; Encouraged pt to contact me via My G if any questions or concerns arise. 45 minutes Medical Nutrition Therapy Time In: 1532 (07/20/24 1535) Time Out: 1620 (07/20/24 1620) 15 min (8-22 min) 30 min (23-37 min) 45 min (38-52 min) 60 min (53-67 min) 75 min (68-82 min) 90 min (83-97 min) 105 min (98-113 min) Courtney Mendoza RDN [facility] documented in this encounter Plan of Treatment Upcoming Encounters Date Type Department Care Team (Late st Contact Info) Description 10/19/2024 11:00 AM EST Office Visit Gastroenterology, [facility] [address] [phone] Jos Britt CRNP [address] [id number] 12/09/2024 12:40 PM EDT Office Visit Family Practice [facility] [address] [id number] Brigido Pérez MD [address] [place] [id number] Scheduled Procedures Name Priority Associated Diagnoses Date/Ti me COLONOSCOPY FLEXIBLE PROXIMAL DIAGNOSTIC Recall Crohn's colitis (HCC) Health Maintenance Due Date Last Done Comments Hepatitis C Screening 1996 Hepatitis B Vaccine (1 of 3 - 19+ 3-dose series) 1997 Cologuard 2023 Fecal Occult Blood Test 2023 Sigmoidoscopy 2023 COVID-19 Vaccine ( season) 2024 07/02/2022, 08/14/2021, 12/15/2020, Additional history exists Influenza Vaccine (FLU shot) (#1) 2024 07/23/2023, 07/24/2022, 08/09/2021, Additional history exists Depression Screening 12/08/2024 12/09/2023 TSH 01/07/2025 01/08/2024, 04/0 03/2023, 11/18/2022, Additional history exists Mammogram 02/16/2025 02/17/2024, 01/26, 02/04/2022, Additional history exists Colonoscopy 08/24/2026 08/24/2023, 07/30, 07/07/2019, Additional history exists Colorectal Cancer Screening 08/24/2026 Diabetes Screening 04/27/2027 04/27/2024, 0 03/25/2023, 11/18/2022, Additional history exists Pap Smear 04/27/2027 04/27/2024, 01/26, 06/10/2018, Additional history exists Lipid Panel 01/07/2029 01/08/2024, 10/30, 11/09/2021, Additional history exists Cervical Cancer Screening 04/27/2029 HPV/Co-Test 04/27/2029 04/27/2024 DTap/Tdap Vaccines (3 - Td or Tdap) 11/09/2031 11/09/2021, 09/02/2010 Pneumococcal Vaccine: Pediatrics (0 to 5 Years) and At-Risk Patients (6 to 64 Years) Completed 11/25/2022 HPV (Gardasil) Vaccine Aged Out No lo nger eligible based on patient's age to complete this topic MENINGOCOCCAL (MENACTRA/MENVEO) Aged Out No longer eligible based on patient's age to complete this topic documented as of this encounter Medical Devices Not on filedocumented as of this encounter Visit Diagnoses Diagnosis Obesity, Class I, BMI 30-34.9- Primary Obesity, unspecified Crohn's disease of small intestine without complication (HCC) Regional enteritis of small intestine Dietary counseling and surveillance Dietary surveillance and counseling documented in this encounter Advance Directives * Full Code (Latest Code Status on File) Date Activated Date Inactivated Comments 08/09/2018 2:31 PM 08/10/2018 7:19 PM This order reflects the patients wishes and were consensually agreed upon. * Full Code Date Activated Date Inactivated Comments 08/09/2018 6:40 AM 08/09/2018 2:31 PM This order reflects the patients wishes and were consensually agreed upon. Care Teams Salesforce Consultant Relationship Specialty Start Date End Date Brigido Pérez MD [address] [id number] PCP - General Family Medicine 12/12/16 documented as of this encounter
--- OUTSIDE RECORDS SUMMARY | 2024-09-14 23:29 | External Medical Summary | Summary of Care ---
Author Name Unknown Organization [facility] Address [address] [place] [address] Phone [phone] Care Team Providers Care Sociocultural Anthropology Professor Name Role Phone Brigido Pérez MD Primary Care Provider + Reason for Visit * Reason Comments Acute Pt reports congestio n, headaches, sore throat, losing voice x 5 days. OTC slat water, saline, flonase, claritin, tylenol cold, mucinex, ibuprofen. Encounter Details Date Type Department Care Team (Late st Contact Info) Description 09/13/2024 10:20 AM EST [facility] [place] [address] [facility] [place] [place] [id number] Lawson Andres MD [address] [facility] [place] [phone] LRTI (lower respiratory tract infection)*; Acute bronchospasm Allergies Active Allergy Reactions Criticality Noted Date Comments Adhesive Tape Rash 09/07/2018 Amoxicillin-Pot Clavulanate Diarrhea 01/20/20 19 Citalopram Hydrobromide Tachycardia 10/03/2013 Gluten 04/20/2014 Gluten Meal 09/07/2017 Latex Rash 08/02/2013 Sulfa Antibiotics Rash 03/20/2016 documented as of this encounter (statuses as of 09/13/2024) Medications WOMENS MULTI VITAMIN & MINERAL PO TABS once daily Active Probiotic Product (PROBIOTIC & ACIDOPHILUS EX ST) Capsule Take 1 Cap by mouth daily. Active Loratadine 10 MG Oral Tablet Take 1 Tablet by mouth in the morning. 30 Tab 11 020 Active fluticasone (FLONASE) 50 MCG/ACT nasal spray INSTILL 2 SPRAYS INTO EACH NOSTRIL TWICE DAILY 16 g 5 020 Active LORazepam 0.5 MG Oral Tablet (Ativan)Indicatio ns:Irritable bowel syndrome, unspecified type,REANNA (generalized anxiety disorder) 1 TABLET EVERY 8 HOURS NEEDED FOR ANXIETY 20 Tablet 022 Active Additional Information Patient not taking.Reported on 09/13/2024 D3-1000 25 MCG (1000 UT) Oral Capsule (Cholecalciferol) Take 1 Capsule by mouth in the morning. Active Ondansetron HCl 4 MG Oral TabletIndications :Benign paroxysmal positional vertigo, unspecified laterality Take 1 Tablet by mouth every 6 hours as needed for Nausea. 30 Tablet 023 Active Additional Information Patient not taking.Reported on 09/13/2024 Eliana FE 10/17 1-20 MG-MCG Oral Tablet (Norethin Julian-Eth Estrad-FE)Indicat ions:General counseling for prescription of oral contraceptives TAKE 1 TABLET DAILY 84 Tablet 3 024 Active Rosuvastatin Calcium 10 MG Oral Tablet (Crestor) Take 1 Tablet by mouth in the morning. 90 Tablet 3 024 Active Levothyroxine Sodium 100 MCG Oral Tablet (Levoxyl) TAKE 1 TABLET BY MOUTH ONCE DAILY IN THE MORNING AT LEAST 30 MINUTES PRIOR TO BREAKFAST/OTHE R MEDS 90 Tablet 3 024 Active Omeprazole 20 MG Oral Capsule Delayed Release (PriLOSEC) TAKE 1 CAPSULE IN THE MORNING 90 Capsule 1 024 Active Balsalazide Disodium 750 MG Oral CapsuleIndication s:Crohn's disease of small intestine without complication (HCC) TAKE 1 CAPSULE IN THE MORNING, 1 CAPSULE AT NOON AND 1 CAPSULE BEFORE BEDTIME 270 Capsule 1 024 Active COVID-19 At Home Antigen Test In Vitro KitIndications:Vi ral URI with cough Use as directed. 1 Each 024 Active Additional Information Patient not taking.Reported on 09/13/2024 Azithromycin 250 MG Oral Tablet (Zithromax Z-Brad)Indications :Bronchitis, complicated Take two tablets by mouth on first day, then 1 tablet daily until gone 6 Tablet Active Additional Information Patient not taking.Reported on 09/13/2024 predniSONE 20 MG Oral Tablet (Deltasone)Indica tions:LRTI (lower respiratory tract infection),Acute bronchospasm 3 tabs by mouth daily for 3 days, then 2 tabs by mouth daily for 3 days, then 1 tab by mouth daily for 3 days. 18 Tablet Active Albuterol Sulfate HFA 108 (90 Base) MCG/ACT Inhalation Aerosol SolutionIndicatio ns:Acute bronchospasm Inhale 2 Puffs by mouth in the morning and 2 Puffs at noon and 2 Puffs in the evening and 2 Puffs before bedtime. 8 g 3 Active guaiFENesin ER 600 MG Oral Tablet Extended Release 12 Hour (Humibid LA)Indications:LR TI (lower respiratory tract infection),Acute bronchospasm Take 1 Tablet by mouth in the morning and 1 Tablet before bedtime. 30 Tablet Active Albuterol Sulfate HFA 108 (90 Base) MCG/ACT Inhalation Aerosol SolutionIndicatio ns:Bronchospasm, exercise-induced Inhale 2 Puffs by mouth in the morning and 2 Puffs at noon and 2 Puffs in the evening and 2 Puffs before bedtime. 8 g 3 024 2023 Discontinued(R efill) predniSONE 10 MG Oral Tablet (Deltasone)Indica tions:Dermatitis Take 5 tabs for 2 days, 4 tabs for 2 days, 3 tabs for 2 days, 2 tabs for 2 days 1 tab for 2 days 30 Tablet 024 2023 Discontinued documented as of this encounter (statuses as of 09/13/2024) Active Problems Problem Noted Date Diagnosed Date Dyslipidemia, goal LDL below 70 12/10/2023 Crohn's disease of small intestine without compl ication 11/25/2022 Need for pneumococcal vaccination 11/25/2022 History of lumbar laminectomy 05/21/2019 Well adult exam 12/12/2016 Overview (12/10/2023): 08/20 colon WNL benoit 3y 2020--BMP not covered as screening lab 10.19 colon WNL. Benoit 3y due to Crohns 12/13 had kidney transplant. Low back pain with right-sided sciatica 12/13/19 Overview (12/12/2016): 08/13- xray L4-s1 DDD Bartholin's gland cyst 01/31/2016 Crohn's disease 11/04/2011 Gastroesophageal reflux disease with esophagitis 11/04/2011 Acquired hypothyroidism 07/01/2010 documented as of this encounter (statuses as of 09/13/2024) Immunizations Name Administration Dates Next Due COVID-19 mRNA, LNP-s, No Pre serve, 2-Dose Series (AdTotum) 07/02/2022,08/14/2021,12/15/2020,2020 Pneumococcal Conjugate Vacci ne, 20-valent ([id number]) 11/25/2022 Seasonal Influenza Vac., MDV , IM, 0.5 mL (Fluzone) 08/03/2014,08/22/2013,06/23/2012,2010,07/01/2010 Seasonal Influenza, PF, 6 M & above, IM , (FluLaval or Fluzone) 07/23/2023,07/24/2022,08/09/2021,2019,06/29/2019,07/28/2018,07/23/2017 Seasonal Influenza, Quadriva lent, No Preserve, IM 08/08/2016,08/17/2015 Seasonal Influenza, Trivalen t, (IIV3), PF, (Fluzone) 08/30/2024 TDAP (age 10 and older)(Boostrix) 11/09/2021 TDAP, [...] No 12/08/2023 Does the household have a unm cancer centerlar source of income? 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 Answer Date of Assessment Author No 08/09/2018 1:30 PM Daniella Wren RN * Are you blind or do you have serious difficulty seeing, even when wearing glasses? Answer Date of Assessment Author No 08/09/2018 1:30 PM Daniella Wren RN * Do you have serious difficulty walking or climbing stairs? (5 years old or older) Answer Date of Assessment Author No 08/09/2018 1:30 PM Daniella Wren RN * Do you have difficulty dressing or bathing? (5 years old or older) Answer Date of Assessment Author No 08/09/2018 1:30 PM Daniella Wren RN * Because of a physical, mental, or emotional condition, do you have difficulty doing errands alone such as visiting a doctors office or shopping? (15 years old or older) Answer Date of Assessment Author No 08/09/2018 1:30 PM Daniella Wren RN documented as of this encounter Mental Status * Because of a physical, mental, or emotional condition, do you have serious difficulty concentrating, remembering, or making decisions? (5 years old or older) Answer Entry Date Author No 08/09/2018 1:30 PM Daniella Wren RN documented in this encounter Progress Notes * Lawson Andres MD - 09/13/2024 10:20 AM EST Images from the original note were not included. Patient location: HOME. I was in a hospital or clinic location. After connecting through [facility],patient was verified with two unique identifiers. Patient (or authorized legal pest control service representative) was then informed that this was a Telemedicine visit and being conducted confidentially over secure lines. Methods to assure confidentiality were taken. Patient acknowledged consent and understanding of pr ivacy and security of the Telemedicine visit. The patient agreed to participate. Mylene Casas is a 44 year old female that presents for Acute (Pt reports congestion, headaches, sore throat, losing voice x 5 days. OTC slat water, saline, flonase, claritin, tylenol cold, mucinex, ibuprofen.) Cold Symptoms The current episode started in the past 7 days. The problem has been unchanged. There has been no fever. Associated symptoms include coughing, rhinorrhea and wheezing. Pertinent negatives include no ear pain, joint pain, nausea, rash, sore throat or vomiting. Associated symptoms comments: Hoarseness. She has tried decongestant, antihistamine and acetaminophen for the symptoms. The treatment provided mild relief. 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 Her is a kidney transplant patient, which concerns her. Had 2 COVID tests that were negative. Review of Systems HENT: Positive for rhinorrhea. Negative for ear pain and sore throat. Respiratory: Positive for cough and wheezing. Gastrointestinal: Negative for nausea and vomiting. Musculoskeletal: Negative for joint pain. Skin: Negative for rash. Objective There were no vitals taken for this visit. There is no height or weight on file to calculate BMI. Physical Exam Constitutional: General: She is not in acute distress. Appearance: She is not toxic-appearing. Pulmonary: Effort: Pulmonary effort is normal. Musculoskeletal: Cervical back: Normal range of motion and neck supple. Neurological: General: No focal deficit present. Mental Status: She is alert and oriented to person, place, and time. Psychiatric: Behavior: Behavior normal. I have reviewed the following results: None Assessment and Plan Vanesa was seen today for acute. Diagnoses and all orders for this visit: LRTI (lower respiratory tract infection) - predniSONE 20 MG Oral Tablet (Deltasone); 3 tabs by mouth daily for 3 days, then 2 tabs by mouth daily for 3 days, then 1 tab by mouth daily for 3 days. - guaiFENesin ER 600 MG Oral Tablet Extended Release 12 Hour (Humibid LA); Take 1 Tablet by mouth in the morning and 1 Tablet before bedtime. Acute bronchospasm - predniSONE 20 MG Oral Tablet (Deltasone); 3 tabs by mouth daily for 3 days, then 2 tabs by mouth daily for 3 days, then 1 tab by mouth daily for 3 days. - Albuterol Sulfate HFA 108 (90 Base) MCG/ACT Inhalation Aerosol Solution; Inhale 2 Puffs by mouth in the morning and 2 Puffs at noon and 2 Puffs in the evening and 2 Puffs before bedtime. - guaiFENesin ER 600 MG Oral Tablet Extended Release 12 Hour (Humibid LA); Take 1 Tablet by mouth in the morning and 1 Tablet before bedtime. Likely viral, supportive care. Advised to follow up in person if symptoms worsen or fail to improve. Wrap-Up Return if symptoms worsen or fail to improve. Time: I spent a total of 20-29 minutes (exact time 20 mins) on the date of service in preparation, delivery, and documentation of the care provided to Vnaesa aCsas excluding any time spent in the performance of separately billed services. Lawson Da Silva MD [address] [id number] This chart was completed in part utilizing [employer] Speech Voice Recognition Software. Grammatical errors, random word insertions, pronoun errors, and incomplete sentences are an occasional consequence of this system due to software limitations, ambient noise, and hardware issues. Any formal questions or concerns about the content, text, or information contained within the body of this dictation should be directly addressed to the provider for clarification. documented in this encounter Nursing Notes * Dory Oliver LPN - 09/13/2024 10:14 AM EST Chief Complaint Patient presents with Acute Pt reports congestion, headaches, sore throat, losing voice x 5 days. OTC slat water, saline, flonase, claritin, tylenol cold, mucinex, ibuprofen. documented in this encounter Miscellaneous Notes * Pt Handout (on AVS) - Lawson Andres MD - 09/13/2024 10:31 AM EST Images from the original note were not included. [id number] Viral Upper Respiratory Illness with Wheezing (Adult) You have a viral upper respiratory illness (URI), which is another term for the common cold.. When the viral infection causes a lot of irritation, the air passages can spasm. This may cause coughing,wheezing, and shortness of breath. This viral illness is contagious during the first few days. It's spread through the air by coughingand sneezing. It may also be spread by direct contact. This could be by touching the sick person and then touching your own eyes, nose, or mouth. Frequent handwashing will help lower the risk. Most viral illnesses go away within 7 to 10 days with rest and simple self-care. Sometimes the illness may last for several weeks. Antibiotics will not kill a virus, and they are generally not prescribed for this condition. Home care If symptoms are severe, rest at home for the first 2 to 3 days or as directed. When you resume activity, don't let yourself get too tired. If you smoke, stop. Ask your healthcare provider if you need help. Stay away from secondhand cigarette smoke. Don't let people smoke in your house or car. You may use acetaminophen or ibuprofen to control pain and fever, unless another medicine was prescribed. Take the medicine only as directed on the label. Talk with your provider before using these medicines iif you have chronic liver or kidney disease, have ever had a stomach ulcer or digestivebleeding, or are taking blood thinners. Never give aspirin to anyone under 18 years of age who is ill with a viral infection or fever. It may cause severe liver or brain damage, or even . Your appetite may be poor, so a light diet is fine. Stay well hydrated by drinking 6 to 8 glasses of fluids per day (water, soft drinks, juices, tea, or soup). Extra fluids will help loosen secretions in the nose and lungs. [id number]-[id number] cold medicines will not shorten the length of time you?re sick, but they may behelpful for the following symptoms: cough, sore throat, and nasal and sinus congestion. Ask your healthcare provider or pharmacist which [place] medicine to use. Don't use decongestants, if you have high blood pressure unless your provider tells you that it's OK. You may be prescribed a bronchodilator medicine to help with breathing and improve the wheezing.It may come as a pill, an inhaler, or as liquid to use in a nebulizing machine. The machine turns the medicine into a mist to breathe in. Follow all instructions for using these medicines. It's important to always use the correct technique when taking bronchodilators. Follow-up care Follow up with your healthcare provider, or as advised. When to seek medical advice Call your healthcare provider right away if any of these occur: Cough with lots of colored mucus Breathing problems don't get better in 2 to 3 days Severe headache; face, neck, or ear pain Difficulty swallowing due to throat pain Fever of 100.4F (38C) or higher , or as directed by your healthcare provider Call 911 Call 911 if any of these occur: Chest pain or chest tightness Worsening shortness of breath, wheezing, or difficulty breathing Coughing up blood Feeling of doom Feeling faint or dizzy Lips or skin is blue, purple or schofield in color Unable to talk Very severe pain when swallowing, especially if it goes along with a muffled voice Last Reviewed Date: 2022 00:00:00 [id number] [employer]. All rights reserved. This information is not intended as a substitute for professional medical care. Always follow your healthcare professional's instructions. documented in this encounter Plan of Treatment Upcoming Encounters Date Type Department Care Team (Late st Contact Info) Description 10/19/2024 11:00 AM EST Office Visit Gastroenterology, [facility] [address] [phone] Jos Britt CRNP [address] [id number] 12/09/2024 12:40 PM EDT Office Visit Family Practice [facility] [address] [id number] Brigido Pérez MD [address] [address] Scheduled Procedures Name Priority Associated Diagnoses Date/Ti me COLONOSCOPY FLEXIBLE PROXIMAL DIAGNOSTIC Recall Crohn's colitis (HCC) Health Maintenance Due Date Last Done Comments Hepatitis C Screening 1996 Hepatitis B Vaccine (1 of 3 - 19+ 3-dose series) 1997 Cologuard 2023 Fecal Occult Blood Test 2023 Sigmoidoscopy 2023 COVID-19 Vaccine ( season) 2024 07/02/2022, 08/14/2021, 12/15/2020, Additional history exists Depression Screening 12/08/2024 12/09/2023 TSH 01/07/2025 01/08/2024, 04/03/2023, 11/18/2022, Additional history exists Mammogram 02/16/2025 02/17/2024, [...] Patients (6 to 64 Years) Completed 11/25/2022 Influenza Vaccine (FLU shot) Completed 11/2023, 07/23/2023, 07/24/2022, Additional history exists HPV (Gardasil) Vaccine Aged Out No lo nger eligible based on patient's age to complete this topic MENINGOCOCCAL (MENACTRA/MENVEO) Aged Out No longer eligible based on patient's age to complete this topic documented as of this encounter Medical Devices Not on filedocumented as of this encounter Visit Diagnoses Diagnosis LRTI (lower respiratory tract infection)- Primary Other diseases of respiratory system, not elsewhere classified Acute bronchospasm documented in this encounter Advance Directives * Full Code (Latest Code Status on File) Date Activated Date Inactivated Comments 08/09/2018 2:31 PM 08/10/2018 7:19 PM This order reflects the patients wishes and were consensually agreed upon. * Full Code Date Activated Date Inactivated Comments 08/09/2018 6:40 AM 08/09/2018 2:31 PM This order reflects the patients wishes and were consensually agreed upon. Care Teams Sociocultural Anthropology Professor Relationship Specialty Start Date End Date Brigido Pérez MD [address] [place] [address] PCP - General Family Medicine 12/12/16 documented as of this encounter
--- OUTSIDE RECORDS SUMMARY | 2024-09-14 23:29 | External Medical Summary | Summary of Care ---
Author Name Unknown Organization [facility] Address [address] [facility] [place] [address] Phone [phone] Care Team Providers Care Collar Setter Name Role Phone Brigido Pérez MD Primary Care Provider + Reason for Visit * Reason Comments Medical Nutrition Therapy * Evaluate & Treat - Unlimited Visits (Within 30 days (routine)) - Authorized Specialty Diagnoses / Procedures Referred By Stevie lim Referred To Contact Dietitian / Nutrition Services Diagnoses Class 1 obesity without serious comorbidity with body mass index (BMI) of 32.0 to 32.9 in adult, unspecified obesity type Nas Lyn CRNP [address] [place] [address] Referral ID Status Reason Start Date Expiration Date Visits Requested Visits Authorized [id number] Authorized Specialty Services Required 04/27/[phone] Encounter Details Date Type Department Care Team (Latest Contact Info) Description 04/29/2024 1:00 PM EDT Nutrition Services Jazmyne Maldonado [address] [place] [address] Courtney Mendoza RDN [address] [place] [address] Obesity, Class I, BMI 30-34.9*; Crohn's disease of small intestine without complication (HCC); Dietary counseling and surveillance Allergies Active Allergy Reactions Criticality Noted Date Comments Adhesive Tape Rash 09/07/2018 Amoxicillin-Pot Clavulanate Diarrhea 01/20/20 19 Citalopram Hydrobromide Tachycardia 10/03/2013 Gluten 04/20/2014 Gluten Meal 09/07/2017 Latex Rash 08/02/2013 Sulfa Antibiotics Rash 03/20/2016 documented as of this encounter (statuses as of 04/29/2024) Medications Medication Sig Dispensed Refills Start Date [...] TWICE DAILY 16 g 5 03/15/2020 Active LORazepam 0.5 MG Oral Tablet (Ativan)Indications:Ir ritable bowel syndrome, unspecified type,REANNA (generalized anxiety disorder) 1 TABLET EVERY 8 HOURS NEEDED FOR ANXIETY 20 Tablet 11/09/2021 Active D3-1000 25 MCG (1000 UT) Oral Capsule (Cholecalciferol) Take 1 Capsule by mouth in the morning. Active Ondansetron HCl 4 MG Oral TabletIndications:Kevin gn paroxysmal positional vertigo, unspecified laterality Take 1 Tablet by mouth every 6 hours as needed for Nausea. 30 Tablet 07/06/2023 Active Albuterol Sulfate HFA 108 (90 Base) MCG/ACT Inhalation Aerosol SolutionIndications:Br onchospasm, exercise-induced Inhale 2 Puffs by mouth in the morning and 2 Puffs at noon and 2 Puffs in the evening and 2 Puffs before bedtime. 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 hn's disease of small intestine without complication (HCC) TAKE 1 CAPSULE IN THE MORNING, 1 CAPSULE AT NOON AND 1 CAPSULE BEFORE BEDTIME 270 Capsule 04/05/2024 Active documented as of this encounter (statuses as of 04/29/2024) Active Problems Problem Noted Date Diagnosed Date [...] as of this encounter (statuses as of 04/29/2024) Immunizations Name Administration Dates Next Due COVID-19 mRNA, LNP-s, No Pre serve, 2-Dose Series (EVERFANS) 07/02/2022,08/14/2021,12/15/2020,2020 Pneumococcal Conjugate Vacci ne, 20-valent ([id number]) 11/25/2022 Seasonal Influenza, PF, 6 M & above, IM , (FluLaval or Fluzone) 07/23/2023,07/24/2022,08/09/2021,2019,06/29/2019,07/28/2018,07/23/2017 Seasonal Influenza, Quadriva lent, No Preserve, IM 08/08/2016,08/17/2015 Seasonal Influenza, Split, I IV3, With Preserve, Inj 08/03/2014,08/22/2013,06/23/2012,2010,07/01/2010 TDAP (age 10 and older)(Boostrix) 11/09/2021 TDAP, [...] - Inhaled Oxygen Concentration - - Weight 88.5 kg (195 lb 1.6 oz) 04/29/2024 1:20 P M EDT Height 165.1 cm (5' 5") 04/29/2024 1:20 PM EDT Body Mass Index 32.47 04/29/2024 1:20 PM EDT documented in this encounter Functional [...] * Patient Instructions* Courtney Mendoza RDN - 04/29/2024 2:06 PM EDT Patient will add a high-protein food to current breakfast, such as PB sandwich or egg sandwich or high-protein shake-try not to skip. Patient will decrease intake of processed foods. For snacks try ripe fruit with nuts or PB or low-fat cheese or a high-protein shake. Patient will do only 1 type of exercise daily such as pilates OR yoga OR treadmill. For other activity do light walking or light stretching. Patient will continue reviewing nutrition labels. Keep in mind fat is twice as high in calories compared to carb's and protein. documented in this encounter Progress Notes * Courtney Mendoza RDN - 04/29/2024 1:03 PM EDT NUTRITION CONSULT - OUTPATIENT [facility] Name: Vanesa Casas Location: [facility] Date: 04/29/2024 Time: 1:03 PM Patient was identified by name and date. Patient was seen [id number] in the clinic. Reason for Referral: Overweight/Obesity NUTRITION ASSESSMENT: Client History Patient is a 43 year old female being seen for above. 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 She has a history of multiple surgeries, and Crohn's. States she is currentlyexperiencing symptoms of adán-menopause. Support System: Spouse Barriers To Learning: None Special Education Needs: None Food/Nutrition-Related History Describes typical diet history/24 hr recall Breakfast: 2 eggs, gluten free bread, mandarin oranges with no sugar syrup, previously skipped, black coffee Snacks: occasionally oatmeal bar or grapes or other fruit Lunch: 1 rice cake with turkey breast and provolone cheese, carrots sticks, pickles, fruit, water or seltzer Snacks: dried fruit snacks-2 packets or veggie puffs-2 bags Dinner: Home Hoop Driving Machine Operator meal-chicken breast with honey or ground pork, broccoli with olive oil, roasted potatoes, water Snacks: Or snack of-bar of PB powder, 3 small Mike's PB cups, low-sugar Cool Whip or other sweet treat or low-sugar popsicle Drinks: water or seltzer water, coffee in AM, occasionally diet sergio kassandra Restaurant meals: more often in the summer, otherwise once a week-chicken salad with own salad dressing Alcohol: None Tobacco Use: No Diet Recall/Food Logs Indicate: AREAS FOR IMPROVEMENT: Varying caloric intake High intake of processed foods POSITIVE: Portion control Uses calorie free beverages Good meal distribution Adequate fluid intake Food and Nutrient Intake and other pertinent information: Patient complains of not being able to lose weight; states she has never weighed this much. States she wants to be healthier. She complains of often being tired. States she recently started eating breakfast; was previously skipping it. Notesbeing very active during the school year-reaching over 10,000 steps on work days. She uses Home Hoop Driving Machine Operator meals for many evening meals. She previously followed Weight Watchers regimen, and continues to follow points system. She admits to having sugar cravings and stress eating. She uses [employer] Pal lorna to trach her food intake. She dislikes texture of smoothies. She does review nutrition labels regu dillan. Food allergies and/or food intolerances: gluten-free due to Crohn's, raw apples, corn syrup Pertinent Medications (Current): Current Outpatient Medications Medication Sig Dispense Refill WOMENS MULTI VITAMIN & MINERAL PO TABS once daily Probiotic Product (PROBIOTIC & ACIDOPHILUS EX ST) Capsule Take 1 Cap by mouth daily. Loratadine 10 MG Oral Tablet Take 1 Tablet by mouth in the morning. 30 Tab 11 fluticasone (FLONASE) 50 MCG/ACT nasal spray INSTILL 2 SPRAYS INTO EACH NOSTRIL TWICE DAILY 16 g 5 LORazepam 0.5 MG Oral Tablet (Ativan) 1 TABLET EVERY 8 HOURS NEEDED FOR ANXIETY 20 Tablet 0 D3-1000 25 MCG (1000 UT) Oral Capsule (Cholecalciferol) Take 1 Capsule by mouth in the morning. Ondansetron HCl 4 MG Oral Tablet Take 1 Tablet by mouth every 6 hours as needed for Nausea. 30 Tablet 0 Albuterol Sulfate HFA 108 (90 Base) MCG/ACT Inhalation Aerosol Solution Inhale 2 Puffs by mouth in the morning and 2 Puffs at noon and 2 Puffs in the evening and 2 Puffs before bedtime. 8 g 3 Eliana FE 10/17 1-20 MG-MCG Oral Tablet (Norethin Julian-Eth Estrad-FE) TAKE 1 TABLET DAILY 84 Tablet 3 Rosuvastatin Calcium 10 MG Oral Tablet (Crestor) Take 1 Tablet by mouth in the morning. 90 Tablet 3 Levothyroxine Sodium 100 MCG Oral Tablet (Levoxyl) TAKE 1 TABLET BY MOUTH ONCE DAILY IN THE MORNINGAT LEAST 30 MINUTES PRIOR TO BREAKFAST/OTHER MEDS 90 Tablet 3 Omeprazole 20 MG Oral Capsule Delayed Release (PriLOSEC) TAKE 1 CAPSULE IN THE MORNING 90 Capsule 0 Balsalazide Disodium 750 MG Oral Capsule TAKE 1 CAPSULE IN THE MORNING, 1 CAPSULE AT NOON AND 1 CAPSULE BEFORE BEDTIME 270 Capsule 0 No current facility-administered medications for this visit. Supplements: Multivitamin with minerals, Probiotic, and Vitamin D3. Uses PB when making recipes butnot consistently. Prior Nutrition Counseling: No prior counseling. Did Weight Watchers regimen in the past. Logging food intake in My Fitness Pal. Physical Activity: yoga-25 minutes, pilates, treadmill-30 minutes Anthropometric Measurements Ht 1.651 m (5' 5") | Wt 88.5 kg (195 lb 1.6 oz) | BMI 32.47 kg/m | BSA 2.01 m Wt Readings from Last 5 Encounters: 04/29/24 88.5 kg (195 lb 1.6 oz) 04/27/24 89 kg (196 lb 3.2 oz) 12/09/23 89 kg (196 lb 3 oz) 10/07/23 88.5 kg (195 lb) 08/24/23 86.2 kg (190 lb) Lowest Weight: 170 lbs Goal weight: 180 lbs Weight Change: increased by 25-30 pounds in the past 2 years BMI: BMI Readings from Last 1 Encounters: 04/29/24 32.47 kg/m Nutrition-Focused Physical Findings Overall appearance: overweight/obese Biochemical Data, Medical Tests, and Procedures Latest Reference Range & Units 04/27/24 08:08 Creatinine 0.5 - 1.0 mg/dL 1.2 (H) Estimated Glomerular Filtration Rate >=60 mL/min 59 (L) (H): Data is abnormally high (L): Data is abnormally low Above levels reviewed and pt aware. NUTRITION DIAGNOSIS Overweight/obesity related to varying caloric intake and high intake of processed foods as evidenced by Reported diet and/or activity recall, Body mass index is 32.47 kg/m. NUTRITION INTERVENTION: NUTRITION EDUCATION Initial/brief nutrition education NUTRITION COUNSELING Strategies Nutrition Prescription: Diet: Weight Management Daily Calorie Needs: [id number] Kcals Daily Protein Needs: 75 Grams protein Goals: Patient will add a high-protein food to current breakfast, such as PB sandwich or egg sandwich or high-protein shake-try not to skip. Patient will decrease intake of processed foods. For snacks try ripe fruit with nuts or PB or low-fat cheese or a high-protein shake. Patient will do only 1 type of exercise daily such as pilates OR yoga OR treadmill. For other activity do light walking or light stretching. Patient will continue reviewing nutrition labels. Keep in mind fat is twice as high in calories compared to carb's and protein. Dietitian Action: Encouraged patient to add a high-protein food to current AM meal-suggestions provided. Encouraged her to avoid processed foods and choose whole natural foods for snacks-suggestions provided. Discussed effect of processed foods and artificial sweeteners on the body. Discussed effects of stress and other relevant factors on a weight management regimen. Encouraged her to do one type of strenuous activity per day. Encouraged her to decrease high- fat foods, and choosing no more than 10% of daily value for fat for most food choices. Encouraged her to rate her level of hunger before eating. If needing to have a snack, encouraged her to choose healthy foods. Reviewed recommended am ount of protein and calories to aim for. Recommendations to Ordering Provider: Continue current plan of nutrition care. NUTRITION MONITORING AND EVALUATION: The following will be monitored and evaluated at the next visit: Monitor weight. Monitor goals and progress. Monitor activity regimen. Plan:Patient scheduled to return in 3 months; Encouraged pt to contact me via My G if any questionsor concerns arise. 60 minutes Medical Nutrition Therapy 15 min (8-22 min) 30 min (23-37 min) 45 min (38-52 min) 60 min (53-67 min) 75 min (68-82 min) 90 min (83-97 min) 105 min (98-113 min) Time In: 1302 (04/29/24 1448) Time Out: 1407 (04/29/24 1448) Courtney Mendoza RDN [facility] documented in this encounter Plan of Treatment Upcoming Encounters Date Type Department Care Team (Late st Contact Info) Description 08/01/2024 9:30 AM EST Nutrition Services Nutrition, [facility] [address] [place] [address] Courtney Mendoza RDN [address] [place] [address] 12/09/2024 12:40 PM EDT Office Visit Family Practice [facility] [address] [place] [phone] Brigido Pérez MD [address] [place] [address] Scheduled Procedures Name Priority Associated Diagnoses Date/Ti me COLONOSCOPY FLEXIBLE PROXIMAL DIAGNOSTIC Recall Crohn's colitis (HCC) Scheduled Referrals Name Type Priority Associated Diagnoses Orde r Schedule NUTRITION-CLINICAL DIETITIAN REFERRAL OP Referral Within 30 days (routine) Class 1 obesity without serious comorbidity with body mass index (BMI) of 32.0 to 32.9 in adult, unspecified obesity type Ordered: 04/27/2024 Health Maintenance Due Date Last Done Comments Hepatitis C Screening 1996 Hepatitis B Vaccine (1 of 3 - 19+ 3-dose series) 1997 HPV/Co-Test 2008 COVID-19 Vaccine (2022- season) 2023 07/02/2022, 08/14/2021, 12/15/2020, Additional history exists Cologuard 2023 Fecal Occult Blood Test 2023 Sigmoidoscopy 2023 Influenza Vaccine (FLU shot) (#1) 2024 07/23/2023, 07/24/2022, 08/09/2021, Additional history exists Depression Screening 12/08/2024 12/09/2023 TSH 01/07/2025 01/08/2024, 04/0 03/2023, 11/18/2022, Additional history exists Cervical Cancer Screening 02/11/2025 Pap Smear 02/11/2025 02/11/2022, 05/29, 05/29/2016, Additional history exists Mammogram 02/16/2025 02/17/2024, 01/26, 02/04/2022, Additional history exists Colonoscopy 08/24/2026 08/24/2023, 07/30, 07/07/2019, Additional history exists Colorectal Cancer Screening 08/24/2026 Diabetes Screening 04/27/2027 04/27/2024, 0 03/25/2023, 11/18/2022, Additional history exists Lipid Panel 01/07/2029 01/08/2024, 10/30, 11/09/2021, Additional history exists DTaP,Tdap,and Td Vaccines (3 - Td or Tdap) 11/09/2031 [...] and were consensually agreed upon. Care Teams Collar Setter Relationship Specialty Start Date End Date Brigido Pérez MD [address] [place] [phone] PCP - General Family Medicine 3/17/17 documented as of this encounter
--- OUTSIDE RECORDS SUMMARY | 2024-09-14 23:29 | External Medical Summary | Summary of Care ---
Author Name Unknown Organization [facility] Address [address] [facility] [place] [address] Phone [phone] Care Team Providers Care Tapper Shank Name Role Phone Brigido Pérez MD Primary Care Provider + Reason for Visit * Reason Onset Date Comments Medical Nutrition Therapy 06/24/2024 Encounter Details Date Type Department Care Team (Late st Contact Info) Description 06/24/2024 1:30 PM EDT Scheduled Telephone Jazmyne Maldonado [address] [place] [address] Courtney Mendoza RDN [address] [place] [phone] Allergies Active Allergy Reactions Criticality Noted Date Comments Adhesive Tape Rash 09/07/2018 Amoxicillin-Pot Clavulanate Diarrhea 01/20/20 19 Citalopram Hydrobromide Tachycardia 10/03/2013 Gluten 04/20/2014 Gluten Meal 09/07/2017 Latex Rash 08/02/2013 Sulfa Antibiotics Rash 03/20/2016 documented as of this encounter (statuses as of 06/24/2024) Medications Medication Sig Dispensed Refills Start Date [...] R MEDS 90 Tablet 3 02/09/2024 Active Balsalazide Disodium 750 MG Oral CapsuleIndications: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 (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) TAKE 1 CAPSULE IN THE MORNING, 1 CAPSULE AT NOON AND 1 CAPSULE BEFORE BEDTIME 270 Capsule 04/05/2024 Active Omeprazole 20 MG Oral Capsule Delayed Release (PriLOSEC) TAKE 1 CAPSULE IN THE MORNING 90 Capsule 1 06/17/2024 Active documented as of this encounter (statuses as of 06/24/2024) Active Problems Problem Noted Date Diagnosed Date [...] as of this encounter (statuses as of 06/24/2024) Immunizations Name Administration Dates Next Due COVID-19 mRNA, LNP-s, No Pre serve, 2-Dose Series (AdSparx) 07/02/2022,08/14/2021,12/15/2020,2020 Pneumococcal Conjugate Vacci ne, 20-valent ([id number]) 11/25/2022 Seasonal Influenza, PF, 6 M & above, IM , (FluLaval or Fluzone) 07/23/2023,07/24/2022,08/09/2021,2019,06/29/2019,07/28/2018,07/23/2017 Seasonal Influenza, Quadriva lent, No Preserve, IM 08/08/2016,08/17/2015 Seasonal Influenza, Trivalen t, (IIV3), with Preserv, (Fluzone) 08/03/2014,08/22/2013,06/23/2012,2010,07/01/2010,08/26/2005 TDAP (age 10 and older)(Boostrix) 11/09/2021 TDAP, [...] No 12/08/2023 Does the household have a lovelace rehabilitation hospitallar source of income? (Household - for ages [...] on file documented as of this encounter Functional Status Functional Status Response [...] No 08/09/2018 documented as of this encounter Miscellaneous Notes * Telephone Encounter - Courtney Mendoza RDN - 06/24/2024 1:09 PM EDT Attempted to contact pt to follow-up after initial nutrition visit from April 29. Left message onpt's voicemail encouraging her to contact me if any questions or concerns arise. Also, reminded herof upcoming nutrition follow-up appointment on August 01. Courtney Mendoza RDN, Clinical Dietitian II, [facility] Clinical Nutrition Services [facility] [phone] [place] [phone] Available via Reading Room Portal documented in this encounter Plan of Treatment Upcoming Encounters Date Type Department Care Team (Late st Contact Info) Description 08/01/2024 9:30 AM EST [facility] [address] [place] [phone] Courtney Mendoza RDN [address] [place] [address] 10/19/2024 11:00 AM EST Office Visit Gastroenterology, [facility] [address] [phone] Jos Britt CRNP [address] [place] [address] 12/09/2024 12:40 PM EDT Office Visit Family [facility] [address] [place] [address] Brigido Pérez MD [address] [place] [address] Scheduled Procedures Name Priority Associated Diagnoses Date/Ti [...] Not on filedocumented as of this encounter Advance Directives * Full Code (Latest Code Status on File) Date Activated Date Inactivated Comments 08/09/2018 2:31 PM 08/10/2018 7:19 PM This order reflects the patients wishes and were consensually agreed upon. * Full Code Date Activated Date Inactivated Comments 08/09/2018 6:40 AM 08/09/2018 2:31 PM This order reflects the patients wishes and were consensually agreed upon. Care Teams Tapper Shank Relationship Specialty Start Date End Date Brigido Pérez MD [address] [place] [address] PCP - General Family Medicine 12/12/16 documented as of this encounter
--- OUTSIDE RECORDS SUMMARY | 2024-09-14 23:29 | External Medical Summary | Summary of Care ---
Author Name Unknown Organization [facility] Address [address] [place] [address] Phone [phone] Care Team Providers Care Biochemist Name Role Phone Brigido Pérez MD Primary Care Provider + Reason for Visit * Reason Comments Rash Cold Symptoms Encounter Details Date Type Department Care Team (Late st Contact Info) Description 07/08/2024 11:20 AM EDT Telemedicine Virtual Urgent Care [address] [facility] [place] [address] Isabella Higginbotham CRNP [address] [place] [address] Dermatitis*; Viral URI with cough Allergies Active Allergy Reactions Criticality Noted Date Comments Adhesive Tape Rash 09/07/2018 Amoxicillin-Pot Clavulanate Diarrhea 01/20/20 19 Citalopram Hydrobromide Tachycardia 10/03/2013 Gluten 04/20/2014 Gluten Meal 09/07/2017 Latex Rash 08/02/2013 Sulfa Antibiotics Rash 03/20/2016 documented as of this encounter (statuses as of 07/08/2024) Medications Medication Sig Dispensed Refills Start Date [...] 06/17/2024 Active Balsalazide Disodium 750 MG Oral CapsuleIndications:First Dyer hn's disease of small intestine without complication (HCC) TAKE 1 CAPSULE IN THE MORNING, 1 CAPSULE AT NOON AND 1 CAPSULE BEFORE BEDTIME 270 Capsule 1 07/04/2024 Active predniSONE 10 MG Oral Tablet (Deltasone)Indications :Dermatitis Take 5 tabs for 2 days, 4 tabs for 2 days, 3 tabs for 2 days, 2 tabs for 2 days 1 tab for 2 days 30 Tablet 07/08/2024 Active COVID-19 At Home Antigen Test In Vitro KitIndications:Viral URI with cough Use as directed. 1 Each 07/08/2024 Active documented as of this encounter (statuses as of 07/08/2024) Active Problems Problem Noted Date Diagnosed Date [...] as of this encounter (statuses as of 07/08/2024) Immunizations Name Administration Dates Next Due COVID-19 mRNA, LNP-s, No Pre serve, 2-Dose Series (Pfizer) 07/02/2022,08/14/2021,12/15/2020,2020 Pneumococcal Conjugate Vacci ne, 20-valent ([id number]) 11/25/2022 Seasonal Influenza Vac., MDV , IM, [...] No 08/09/2018 documented as of this encounter Progress Notes * Isabella Higginbotham CRNP - 07/08/2024 11:22 AM EDT Patient location: HOME. I was not in a hospital or clinic location. After connecting through [employer], patient was verified with two unique identifiers. Patient (or authorized legal labor service representative) was then informed that this was a Telemedicine visit and being conducted confidentially over secure lines. Methods to assure confidentiality were taken. Patient acknowledged consent and understanding of privacy and security of the Telemedicine visit. The patient agreed to participate. HPI: Vanesa Casas is a 43 year old female who presents for evaluation of URI sx and rash. 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 Yesterday started with an itchy rash on face. Feels bumpy and puffy. Spreading to neck now. Also started with cough, nasal drainage, feeling feverish, body aches. Had low grade fever this morning. Within the last month, had 2 flare ups of Crohns. No sore throat but throat feels a little swollen. Has not tried anything for sx. No new cosmetic productions, lotions, detergents, medications, etc. Takes daily claritin. ROS: See HPI for pertinent positives and negatives. PAST MEDICAL HISTORY: ALLERGIES- MEDS - PAST HOSP- PAST SURG- ROS - FAM HIST - Past Surgical History: Procedure Laterality Date COLONOSCOPY 2010 [facility] COLONOSCOPY, DIAGNOSTIC (RECTUM) 07/11/2014 normal bx, repeat 5 yrs/COLONOSCOPY FLEXIBLE PROXIMAL DIAGNOSTIC performed by Tatiana Reynoso DO at ENDOSCOPY [facility] COLONOSCOPY, DIAGNOSTIC (RECTUM) 07/07/2019 normal bx, repeat 3 yrs/COLONOSCOPY FLEXIBLE PROXIMAL DIAGNOSTIC performed by Tatiana Reynoso DO at ENDOSCOPY [facility] COLONOSCOPY, DIAGNOSTIC (RECTUM) 08/24/2023 hemorrhoids/biopsies normal/recall 3 years/COLONOSCOPY FLEXIBLE PROXIMAL DIAGNOSTIC performed by Tatiana Reynoso DO at ENDOSCOPY [facility] CYSTO W/UP STRICTURE TX age 3, [id number] stricture, [facility], INSERT WIRE, PASS DILATOR 10/03/2011 dilation to 40 with savery EGD, FLEXIBLE, W/BIOPSY 10/03/2011 biopsy INJECT DX/THER SUBSTANCE INTERLAMINAR LUMBAR/SACRAL W IMAGE GUIDE 03/19/2017 INJECTION SPINE LUMBAR OR SACRAL performed by Cardington Sabrina Ceballos, DO at OR [facility] INJECT DX/THER SUBSTANCE INTERLAMINAR LUMBAR/SACRAL W IMAGE GUIDE 05/03/2018 INJECTION SPINE LUMBAR OR SACRAL performed by Cardington Sabrina Ceballos, DO at OR [facility] INJECT DX/THER SUBSTANCE INTERLAMINAR LUMBAR/SACRAL W IMAGE GUIDE 06/07/2018 INJECTION SPINE LUMBAR OR SACRAL performed by Jac Sabrina Ceballos, DO at OR [facility] LUMBAR / SACRAL EPIDURAL, SINGLE LEVEL 04/09/2017 INJECTION TRANSFORAMINAL EPIDURAL LUMBAR OR SACRAL performed by Card[place] Sabrina Ceballos, DO at OR [facility] LUMBAR HEMILAMINECTOMY Right 08/09/2018 LAMINOTOMY DECOMPRESSION NERVE ROOT LUMBAR performed by John Ulloa MD at [place] [facility] MICROSURGERY ADD-ON Right 08/09/2018 MICROSURGICAL SURGERY REQUIRING MICROSCOPE LISTED SEPARATELY performed by John Ulloa MD at [place] [facility] REMOVAL OF TONSILS, AGE 12+ age 17, 1996 [facility] [place] REPAIR INITIAL INGUINAL HERNIA REDUCIBLE AGE 5 OR MORE 09/06/2013 09/06/2013 repair of left indirect inguinal hernia with mesh- [facility] Dr. Janny Reynoso Social History Tobacco Use Smoking status: Never Smokeless tobacco: Never Substance Use Topics Alcohol use: Yes Comment: rarely Vaping/E-Cigarette Use Vaping/E-Cigarette Substances Vaping/E-Cigarette Devices Patient Active Problem List Diagnosis Acquired hypothyroidism Crohn's disease (HCC) Gastroesophageal reflux disease with esophagitis Bartholin's gland cyst Well adult exam Low back pain with right-sided sciatica History of lumbar laminectomy Crohn's disease of small intestine without complication (HCC) Need for pneumococcal vaccination Dyslipidemia, goal LDL below 70 Review of patient's allergies indicates: Allergen Reactions Adhesive Tape Rash Augmentin [Amoxicillin-Pot Clavulanate] Diarrhea Citalopram Hydrobromide Tachycardia Gluten Gluten Meal Latex Rash Sulfa Antibiotics Rash Current Outpatient Medications Medication Sig Dispense Refill predniSONE 10 MG Oral Tablet (Deltasone) Take 5 tabs for 2 days, 4 tabs for 2 days, 3 tabs for 2 days, 2 tabs for 2 days 1 tab for 2 days 30 Tablet 0 COVID-19 At Home Antigen Test In Vitro Kit Use as directed. 1 Each 0 WOMENS MULTI VITAMIN & MINERAL PO TABS [...] before bedtime. 8 g 3 Eliana FE / 1-20 MG-MCG Oral Tablet (Norethin Julian-Eth Estrad-FE) [...] CAPSULE IN THE MORNING 90 Capsule 1 Balsalazide Disodium 750 MG Oral Capsule TAKE 1 CAPSULE IN THE MORNING, 1 CAPSULE AT NOON AND 1 CAPSULE BEFORE BEDTIME 270 Capsule 1 No current facility-administered medications for this visit. OBJECTIVE: PHYSICAL EXAM: Vitals not obtained. Exam consistent with telemedicine visit. General: alert, healthy, and no distress Lungs: respirations easy and unlabored Skin: maculopapular rash on cheeks, chin, and spreading to neck ASSESSMENT/PLAN: Dermatitis (Primary) - predniSONE 10 MG Oral Tablet (Deltasone); Take 5 tabs for 2 days, 4 tabs for 2 days, 3 tabs for 2days, 2 tabs for 2 days 1 tab for 2 days Viral URI with cough - COVID-19 At Home Antigen Test In Vitro Kit; Use as directed. Limited evaluation d/t nature of telemedicine visit. May trial hydrocortisone cream for rash. Continue antihistamine. If sx worsen or fail to improve over the next day or 2, may start prednisone taper. Other sx likely viral in etiology. Recommend supportive OTC measures. COVID testing encouraged. If sx worsen or fail to improve, f/u with PCP or report to nearest CC location. Patient/guardian demonstrates understanding of the visit, course of treatment, and instructions. [facility] documented in this encounter Plan of Treatment Upcoming Encounters Date Type Department Care Team (Late st Contact Info) Description 08/01/2024 9:30 AM EST [facility] [address] [address] Courtney Mendoza RDN [address] [place] [address] 10/19/2024 11:00 AM EST Office Visit Gastroenterology, [facility] [address] [address] Jos Britt CRNP [address] [address] 12/09/2024 12:40 PM EDT Office Visit Family [facility] [address] [place] [address] Brigido Pérez MD [address] [place] [address] Scheduled Procedures Name Priority Associated Diagnoses Date/Ti [...] as of this encounter Visit Diagnoses Diagnosis Dermatitis- Primary Contact dermatitis and other eczema, due to unspecified cause Viral URI with cough Acute upper respiratory infections of unspecified site documented in this encounter Advance Directives * Full Code (Latest Code Status on File) Date Activated Date Inactivated Comments 08/09/2018 2:31 PM 08/10/2018 7:19 PM This order reflects the patients wishes and were consensually agreed upon. * Full Code Date Activated Date Inactivated Comments 08/09/2018 6:40 AM 08/09/2018 2:31 PM This order reflects the patients wishes and were consensually agreed upon. Care Teams Biochemist Relationship Specialty Start Date End Date Brigido Pérez MD [address] [address] PCP - General Family Medicine 12/12/16 documented as of this encounter
--- OUTSIDE RECORDS SUMMARY | 2024-09-14 23:29 | External Medical Summary | Summary of Care ---
Author Name Unknown Organization [facility] Address [address] [facility] [place] [address] Phone [phone] Care Team Providers Care Rust Proofer Name Role Phone Brigido Pérez MD Primary Care Provider + Reason for Visit * Reason Comments eRx-Medication Refill Encounter Details Date Type Department Care Team (Late st Contact Info) Description 07/04/2024 Refill Gastroenterology, [facility] [address] [place] [address] Franky Britt CRNP [address] [place] [address] Crohn's disease of small intestine without complication (HCC) Allergies Active Allergy Reactions Criticality Noted Date Comments Adhesive Tape Rash 09/07/2018 Amoxicillin-Pot Clavulanate Diarrhea 01/20/20 19 Citalopram Hydrobromide Tachycardia 10/03/2013 Gluten 04/20/2014 Gluten Meal 09/07/2017 Latex Rash 08/02/2013 Sulfa Antibiotics Rash 03/20/2016 documented as of this encounter (statuses as of 07/04/2024) Medications Medication Sig Dispensed Refills Start Date [...] 03/15/2020 Active LORazepam 0.5 MG Oral Tablet (Ativan)Indications :Irritable bowel syndrome, unspecified type,REANNA (generalized anxiety disorder) 1 TABLET EVERY 8 HOURS NEEDED FOR ANXIETY 20 Tablet 11/09/2021 Active D3-1000 25 MCG (1000 UT) Oral Capsule (Cholecalciferol) Take 1 Capsule by mouth in the morning. Active Ondansetron HCl 4 MG Oral TabletIndications:B enign paroxysmal positional vertigo, unspecified laterality Take 1 Tablet by mouth every 6 hours as needed for Nausea. 30 Tablet 07/06/2023 Active Albuterol Sulfate HFA 108 (90 Base) MCG/ACT Inhalation Aerosol SolutionIndications :Bronchospasm, exercise-induced Inhale 2 Puffs by mouth in the morning and 2 Puffs at noon and 2 Puffs in the evening and 2 Puffs before bedtime. 8 g 3 10/07/2023 Active Eliana FE 10/17 1-20 MG-MCG Oral Tablet (Norethin Julian-Eth Estrad-FE)Indicatio ns:General counseling for prescription of oral contraceptives TAKE 1 TABLET DAILY 84 Tablet 3 11/16/2023 Active Rosuvastatin Calcium 10 MG Oral Tablet (Crestor) Take 1 Tablet by mouth in the morning. 90 Tablet 3 12/09/2023 Active Levothyroxine Sodium 100 MCG Oral Tablet (Levoxyl) TAKE 1 TABLET BY MOUTH ONCE DAILY IN THE MORNING AT LEAST 30 MINUTES PRIOR TO BREAKFAST/OT HER MEDS 90 Tablet 3 02/09/2024 Active Omeprazole 20 MG Oral Capsule Delayed Release (PriLOSEC) TAKE 1 CAPSULE IN THE MORNING 90 Capsule 1 06/17/2024 Active Balsalazide Disodium 750 MG Oral CapsuleIndications: Crohn's disease of small intestine without complication (HCC) TAKE 1 CAPSULE IN THE MORNING, 1 CAPSULE AT NOON AND 1 CAPSULE BEFORE BEDTIME 270 Capsule 1 07/04/2024 Active Balsalazide Disodium 750 MG Oral CapsuleIndications: Crohn's disease of small intestine without complication (HCC) TAKE 1 CAPSULE IN THE MORNING, 1 CAPSULE AT NOON AND 1 CAPSULE BEFORE BEDTIME 270 Capsule 04/05/2024 4 Discontinued documented as of this encounter (statuses as of 07/04/2024) Active Problems Problem Noted Date Diagnosed Date [...] as of this encounter (statuses as of 07/04/2024) Immunizations Name Administration Dates Next Due COVID-19 mRNA, LNP-s, No Pre serve, 2-Dose Series (Pfizer) 07/02/2022,08/14/2021,12/15/2020,2020 Pneumococcal Conjugate Vacci ne, 20-valent ([id number]) 11/25/2022 Seasonal Influenza Vac., MDV , IM, [...] encounter Miscellaneous Notes * Telephone Encounter - Jelena Pepper [facility] - 07/04/2024 11:18 AM EDT Signed Prescriptions: Disp Refills Balsalazide Disodium 750 MG Oral Capsule 270 Ca*1 Sig: TAKE 1 CAPSULE IN THE MORNING, 1 CAPSULE AT NOON AND 1 CAPSULE BEFORE BEDTIMEAuthorizing Provider: FRANKY BRITT User: JELENA PEPPER --------- * Telephone Encounter - Sandie Castro - 07/04/2024 4:10 AM EDTPending Prescriptions: Disp Refills Balsalazide Disodium 750 MG Oral Capsule [*270 Ca*3 Sig: TAKE 1 CAPSULE IN THE MORNING, 1 CAPSULE AT NOON AND 1 CAPSULE BEFORE BEDTIME * Telephone Encounter - Sandie Castro - 07/04/2024 4:08 AM EDT Did you pend patient's preferred pharmacy and medication before forwarding?yes Pharmacy: [facility]-[address]- [place] Pending Prescriptions: Disp Refills Balsalazide Disodium 750 MG Oral Capsule *270 Ca*3 Sig: TAKE 1 CAPSULE IN THE MORNING, 1 CAPSULE AT NOON AND 1 CAPSULE BEFORE BEDTIME Last Visit: 03/25/2023 (in office), 07/19/2021 (telemedicine) Next Visit: 10/19/2024 If no future appointments scheduled, and last appointment is greater than a year ago, please schedule patient for a follow-up appointment Last date the medication was ordered: 04/05/2024 Is this request for a controlled substance?No Urine Drug Screen:No results found for this or any previous visit. Patient Phone Numbers Labs: Lab Results Component Value Date/Time CREAT 1.2 (H) 04/27/2024 08:08 AM CREAT 1.0 09/07/2018 03:48 PM POTASSIUM 4.9 04/27/2024 08:08 AM POTASSIUM 4.5 09/07/2018 03:48 PM TSH 3.36 01/08/2024 03:32 PM TSH 3.22 10/27/2019 03:44 PM LDL 85 01/08/2024 03:32 PM LDL UNINTERPRETABLE RESULT 09/07/2018 03:48 PM LDL 160 (H) 09/07/2018 03:48 PM ALT 15 04/27/2024 08:08 AM ALT 7 (L) 12/15/2016 03:24 PM HGBA1C 5.1 09/07/2018 03:48 PM documented in this encounter Plan of Treatment Upcoming Encounters Date Type Department Care Team (Late st Contact Info) Description 08/01/2024 9:30 AM EST Nutrition Services Nutrition, [facility] [address] [place] [address] Courtney Mendoza RDN [address] [place] [address] 10/19/2024 11:00 AM EST Office Visit Gastroenterology, [facility] [address] [place] [address] Franky Britt CRNP [address] [place] [address] 12/09/2024 12:40 PM EDT Office Visit Family Practice [facility] [address] [address] Brigido Pérez MD [address] [place] [address] Scheduled Procedures Name Priority Associated Diagnoses Date/Ti [...] as of this encounter Visit Diagnoses Diagnosis Crohn's disease of small intestine without complication (HCC) Regional enteritis of small intestine documented in this encounter Advance Directives * Full Code (Latest Code Status on File) Date Activated Date Inactivated Comments 08/09/2018 2:31 PM 08/10/2018 7:19 PM This order reflects the patients wishes and were consensually agreed upon. * Full Code Date Activated Date Inactivated Comments 08/09/2018 6:40 AM 08/09/2018 2:31 PM This order reflects the patients wishes and were consensually agreed upon. Care Teams Rust Proofer Relationship Specialty Start Date End Date Brigido Pérez MD [address] [address] PCP - General Family Medicine 12/12/16 documented as of this encounter
--- OUTSIDE RECORDS SUMMARY | 2024-09-14 23:29 | External Medical Summary | Summary of Care ---
Author Name Unknown Organization [facility] Address [address] [place] [address] Phone [phone] Care Team Providers Care Ota Name Role Phone Brigido Pérez MD Primary Care Provider + Encounter Details Date Type Department Care Team (Late st Contact Info) Description 05/02/2024 Orders Only Outcomes Research Department [address], [place] [id number] Meri Badillo [facility] Other*[id number] Allergies Active Allergy Reactions Criticality Noted Date Comments Adhesive Tape Rash 09/07/2018 Amoxicillin-Pot Clavulanate Diarrhea 01/20/20 19 Citalopram Hydrobromide Tachycardia 10/03/2013 Gluten 04/20/2014 Gluten Meal 09/07/2017 Latex Rash 08/02/2013 Sulfa Antibiotics Rash 03/20/2016 documented as of this encounter (statuses as of 05/02/2024) Medications Medication Sig Dispensed Refills Start Date [...] 03/22/2024 Active Balsalazide Disodium 750 MG Oral CapsuleIndications:Removable Prosthodontist hn's disease of small intestine without complication (HCC) TAKE 1 CAPSULE IN THE MORNING, 1 CAPSULE AT NOON AND 1 CAPSULE BEFORE BEDTIME 270 Capsule 04/05/2024 Active documented as of this encounter (statuses as of 05/02/2024) Active Problems Problem Noted Date Diagnosed Date Dyslipidemia, goal LDL below 70 12/10/2023 Crohn's disease of small intestine without compl ication 11/25/2022 Need for pneumococcal vaccination 11/25/2022 History of lumbar laminectomy 05/21/2019 Well adult exam 12/12/2016 Overview: 08/20 colon WNL sherlyn 3y 2020--BMP not covered as screening lab 10.19 colon WNL. Sherlyn 3y due to Crohns 3/18 had kidney transplant. Low back pain with right-sided sciatica 12/13/19 17 Overview: 08/13- xray L4-s1 DDD Bartholin's gland cyst 01/31/2016 Crohn's disease 11/04/2011 Gastroesophageal reflux disease with esophagitis 11/04/2011 Acquired hypothyroidism 07/01/2010 documented as of this encounter (statuses as of 05/02/2024) Immunizations Name Administration Dates Next Due COVID-19 mRNA, LNP-s, No Pre serve, 2-Dose Series ([employer]) 07/02/2022,08/14/2021,12/15/2020,2020 Pneumococcal Conjugate Vacci ne, 20-valent ([id number]) 11/25/2022 Seasonal Influenza, PF, 6 M & [...] 12/08/2023 Does the household have a [facility] source of income? (Household - for [...] No 08/09/2018 documented as of this encounter Plan of Treatment Upcoming Encounters Date Type Department Care Team (Late st Contact Info) Description 08/01/2024 9:30 AM EST Nutrition Services Nutrition, [facility] [address] [place] [address] Courtney Mendoza RDN [address] [place] [address] 12/09/2024 12:40 PM EDT Office Visit Family Practice [facility] [address] [place] [address] Brigido Pérez MD [address] [place] [address] Scheduled Orders Name Type Priority Associated Diagnoses Orde r Schedule MYCODE SUBSEQUENT ADULT Lab Routine [employer] Research Other*[id number] Every 6 Months for 2 Occurrences starting 05/02/2024 until 05/22/2025 Scheduled Procedures Name Priority Associated Diagnoses Date/Ti [...] as of this encounter Visit Diagnoses Diagnosis [employer] Research Other*[id number] documented in this encounter Advance Directives * Full Code (Latest Code Status on File) Date Activated Date Inactivated Comments 08/09/2018 2:31 PM 08/10/2018 7:19 PM This order reflects the patients wishes and were consensually agreed upon. * Full Code Date Activated Date Inactivated Comments 08/09/2018 6:40 AM 08/09/2018 2:31 PM This order reflects the patients wishes and were consensually agreed upon. Care Teams Ota Relationship Specialty Start Date End Date Brigido Pérez MD [address] [address] PCP - General Family Medicine 12/12/16 documented as of this encounter
--- OUTSIDE RECORDS SUMMARY | 2024-09-14 23:29 | External Medical Summary | Summary of Care ---
Author Name Unknown Organization [facility] Address [address] [facility] [place] [address] Phone [phone] Care Team Providers Care Car Repair Supervisor Name Role Phone Brigido Pérez MD Primary Care Provider + Reason for Visit * Reason Onset Date Comments Medication Administration 08/30/2024 Flu an d/or Pneumo Inj Encounter Details Date Type Department Care Team (Late st Contact Info) Description 08/30/2024 11:40 AM EST Immunization Ancillary [facility] [address] [place] [address] [facility] [address] [facility] [place] [address] Need for prophylactic vaccination and inoculation against influenza* Allergies Active Allergy Reactions Criticality Noted Date Comments Adhesive Tape Rash 09/07/2018 Amoxicillin-Pot Clavulanate Diarrhea 01/20/20 19 Citalopram Hydrobromide Tachycardia 10/03/2013 Gluten 04/20/2014 Gluten Meal 09/07/2017 Latex Rash 08/02/2013 Sulfa Antibiotics Rash 03/20/2016 documented as of this encounter (statuses as of 08/30/2024) Medications WOMENS MULTI VITAMIN & MINERAL PO TABS once daily Active Probiotic Product (PROBIOTIC & ACIDOPHILUS EX ST) Capsule Take 1 Cap by mouth daily. Active Loratadine 10 MG Oral Tablet Take 1 Tablet by mouth in the morning. 30 Tab 11 02/03/20 20 Active fluticasone (FLONASE) 50 MCG/ACT nasal spray INSTILL 2 SPRAYS INTO EACH NOSTRIL TWICE DAILY 16 g 5 03/15/20 20 Active Additional Information Patient not taking.Reported on 07/14/2024 LORazepam 0.5 MG Oral Tablet (Ativan)Indication s:Irritable bowel syndrome, unspecified type,REANNA (generalized anxiety disorder) 1 TABLET EVERY 8 HOURS NEEDED FOR ANXIETY 20 Tablet 11/09/19 22 Active D3-1000 25 MCG (1000 UT) Oral Capsule (Cholecalciferol) Take 1 Capsule by mouth in the morning. Active Ondansetron HCl 4 MG Oral TabletIndications: Benign paroxysmal positional vertigo, unspecified laterality Take 1 Tablet by mouth every 6 hours as needed for Nausea. 30 Tablet 07/06/20 23 Active Albuterol Sulfate HFA 108 (90 Base) MCG/ACT Inhalation Aerosol SolutionIndication s:Bronchospasm, exercise-induced Inhale 2 Puffs by mouth in the morning and 2 Puffs at noon and 2 Puffs in the evening and 2 Puffs before bedtime. 8 g 3 10/07/19 24 Active Eliana FE 10/17 1-20 MG-MCG Oral Tablet (Norethin Julian-Eth Estrad-FE)Indicati ons:General counseling for prescription of oral contraceptives TAKE 1 TABLET DAILY 84 Tablet 3 11/16/19 24 Active Rosuvastatin Calcium 10 MG Oral Tablet (Crestor) Take 1 Tablet by mouth in the morning. 90 Tablet 3 12/09/19 24 Active Levothyroxine Sodium 100 MCG Oral Tablet (Levoxyl) TAKE 1 TABLET BY MOUTH ONCE DAILY IN THE MORNING AT LEAST 30 MINUTES PRIOR TO BREAKFAST/OTHER MEDS 90 Tablet 3 02/09/20 24 Active Omeprazole 20 MG Oral Capsule Delayed Release (PriLOSEC) TAKE 1 CAPSULE IN THE MORNING 90 Capsule 1 06/17/20 24 Active Balsalazide Disodium 750 MG Oral CapsuleIndications :Crohn's disease of small intestine without complication (HCC) TAKE 1 CAPSULE IN THE MORNING, 1 CAPSULE AT NOON AND 1 CAPSULE BEFORE BEDTIME 270 Capsule 1 07/04/20 24 Active predniSONE 10 MG Oral Tablet (Deltasone)Indicat ions:Dermatitis Take 5 tabs for 2 days, 4 tabs for 2 days, 3 tabs for 2 days, 2 tabs for 2 days 1 tab for 2 days 30 Tablet 07/08/20 Active COVID-19 At Home Antigen Test In Vitro KitIndications:Vir al URI with cough Use as directed. 1 Each 07/08/20 Active Azithromycin 250 MG Oral Tablet (Zithromax Z-Brad)Indications: Bronchitis, complicated Take two tablets by mouth on first day, then 1 tablet daily until gone 6 Tablet 07/14/20 Active documented as of this encounter (statuses as of 08/30/2024) Active Problems Problem Noted Date Diagnosed Date [...] back pain with right-sided sciatica 12/13/19 17 Overview (12/12/2016): 08/13- xray L4-s1 DDD Bartholin's gland cyst 01/31/2016 Crohn's disease 11/04/2011 Gastroesophageal reflux disease with esophagitis 11/04/2011 Acquired hypothyroidism 07/01/2010 documented as of this encounter (statuses as of 08/30/2024) Immunizations Name Administration Dates Next Due COVID-19 mRNA, LNP-s, No Pre serve, 2-Dose Series ([employer]) 07/02/2022,08/14/2021,12/15/2020,2020 Pneumococcal Conjugate Vacci ne, 20-valent ([id number]) 11/25/2022 Seasonal Influenza Vac., MDV , IM, [...] 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 Soreness or redness at injection site 2. Low grade fever 3. Body aches You may use Tylenol/Acetaminophen as needed for these symptoms. LET YOUR DOCTOR KNOW IMMEDIATELY IF YOU HAVE DIFFICULTY BREATHING OR SWALLOWING, EXPERIENCE ITCHINGOF FEET OR HANDS, HAVE SWELLING OF EYES, FACE OR INSIDE OF NOSE. documented in this encounter Progress Notes * Angela Hoskins LPN - 08/30/2024 11:31 AM EST PRE - ADMINISTRATION DOCUMENTATION Are you experiencing any cold symptoms or fever? No Have you had Guillain-Newfolden Syndrome (an illness that causes paralysis) within the last 6 weeks? No Have you had the flu shot in the past? YES Have you ever had a reaction to the flu shot? No Angela Hoskins LPN, 08/30/2024 11:31 AM Immunization Administration Documentation Time Out Procedure Performed: Yes Patient Identified (Ask Name/Date of ): Yes Does the patient have a fever greater than 101 degrees today? No Patient allergic to latex? No VFC Stock: No Immunization(s) verified: Yes, Immunization Name: Flu, VIS Sheet(s) given: Yes Verified Side and Site: Yes Verified Shot(s) with Parent(s)/Patient: Yes documented in this encounter Plan of Treatment Upcoming Encounters Date Type Department Care Team (Late st Contact Info) Description 10/19/2024 11:00 AM EST Office Visit Gastroenterology, [facility] [address] [place] [address] Jos Britt CRNP [address] [place] [address] 12/09/2024 12:40 PM EDT Office Visit Family Practice [facility] [address] [place] [address] Brigido Pérez MD [address] [place] [address] Scheduled Procedures Name Priority Associated Diagnoses Date/Ti [...] as of this encounter Visit Diagnoses Diagnosis Need for prophylactic vaccination and inoculation against influenza- Primary documented in this encounter Advance Directives * Full Code (Latest Code Status on File) Date Activated Date Inactivated Comments 08/09/2018 2:31 PM 08/10/2018 7:19 PM This order reflects the patients wishes and were consensually agreed upon. * Full Code Date Activated Date Inactivated Comments 08/09/2018 6:40 AM 08/09/2018 2:31 PM This order reflects the patients wishes and were consensually agreed upon. Care Teams Car Repair Supervisor Relationship Specialty Start Date End Date Brigido Pérez MD [address] [place] [address] PCP - General Family Medicine 12/12/16 documented as of this encounter
--- OUTSIDE RECORDS SUMMARY | 2024-09-14 23:29 | External Medical Summary | Summary of Care ---
Author Name Unknown Organization [facility] Address [address] [facility] [place] [address] Phone [phone] Care Team Providers Care Research Group Director Name Role Phone Brigido Pérez MD Primary Care Provider + Reason for Visit * Reason Comments Acute Symptoms started one week ago with rash, fever. Had telemed-took prednisone. Starting to feel heaviness in chest, green/ware mucous yesterday Encounter Details Date Type Department Care Team (Late st Contact Info) Description 07/14/2024 11:00 AM EDT Office Visit Family Practice [facility] [address] [place] [address] Nas Lyn CRNP [address] [place] [address] Bronchitis, complicated*; Bronchospasm, exercise-induced Allergies Active Allergy Reactions Criticality Noted Date Comments Adhesive Tape Rash 09/07/2018 Amoxicillin-Pot Clavulanate Diarrhea 01/20/20 19 Citalopram Hydrobromide Tachycardia 10/03/2013 Gluten 04/20/2014 Gluten Meal 09/07/2017 Latex Rash 08/02/2013 Sulfa Antibiotics Rash 03/20/2016 documented as of this encounter (statuses as of 07/14/2024) Medications Medication Sig Dispensed Refills Start Date [...] as of this encounter (statuses as of 07/14/2024) Active Problems Problem Noted Date Diagnosed Date [...] as of this encounter (statuses as of 07/14/2024) Immunizations Name Administration Dates Next Due COVID-19 mRNA, LNP-s, No Pre serve, 2-Dose Series ([employer]) 07/02/2022,08/14/2021,12/15/2020,2020 Pneumococcal Conjugate Vacci ne, 20-valent ([id number]) 11/25/2022 Seasonal Influenza Vac., MDV , IM, [...] Sign Reading Time Taken Comments Blood Pressure 118/80 07/14/2024 10:50 AM EDT Pulse 80 07/14/2024 10:50 AM EDT Temperature 36.9 C (98.5 F) 07/14/2024 1 0:50 AM EDT Respiratory Rate 16 07/14/2024 10:5 0 AM EDT Oxygen Saturation 96% 07/14/2024 10: 50 AM EDT Inhaled Oxygen Concentration - - Weight 88.4 kg (194 lb 12.8 oz) 024 10:50 AM EDT Height 165.1 cm (5' 5") 07/14/2024 10:5 0 AM EDT Body Mass Index 32.42 07/14/2024 10:50 AM EDT documented in this encounter Functional Status [...] as of this encounter Progress Notes * Nas Lyn CRNP - 07/14/2024 10:53 AM EDT Images from the original note were not included. URI Family Medicine Visit History of Present Illness CC: Chief Complaint Patient presents with Acute Symptoms started one week ago with rash, fever. Had telemed-took prednisone. Starting to feel heaviness in chest, green/ware mucous yesterday Vanesa Casas is a very pleasant 43 year old female with above complaints x 10 days. Symptoms are worse over the periods. Previous lung disease: None Has tried OTC albuterol 3 times/day, mucinex, and prednisone with minimal relief. -fever, t max - -chills -sweats +decreased appetite -tolerating fluids +BURNS -congestion -loss of taste or smell -runny nose -PND +ear pain (left) -sore throat +cough +productive of mucous +sob -wheezing -nausea -diarrhea -constipation -vomiting -body aches -Rash -Sleep disruption Past Medical History: Diagnosis Date Asthma, exercise induced Crohn's disease (HCC) Dyslipidemia, goal LDL below 70 12/10/2023 GERD (gastroesophageal reflux disease) Hypothyroidism 2009 Low back pain with right-sided sciatica 12/12/2016 Urinary problem no current issues Social History Socioeconomic History Marital status: Spouse name: Hakan Number of children: 0 Years of education: Not on file Highest education level: Not on file Occupational History 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 . no DV. 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 (Adult - for ages 18 years and over): No Does your family have trouble paying for medicine? (Household - for ages 0-17 years): Not on file Food Insecurity: No Food Insecurity (12/08/2023) Food Insecurity Do you need food for this week? (Adult - for ages 18 years and over): No Are you able to get enough food for your family? (Household - for ages 0-17 years): Not on file Does your family need food this week? (Household - for ages 0-17 years): Not on file Do you always have enough food for your family? (Household - for ages 0-17 years): Not on file Transportation Needs: No Transportation Needs (12/08/2023) Transportation Needs Do you have trouble getting a ride to medical visits or work? (Adult - for ages 18 years and over):Never True Does your family have a hard time getting a ride to doctors visits? (Household - for ages 0-17 years): Not on file Has lack of transportation kept you from medical appointments, meetings, work, or from getting things needed for daily living? Check all that apply. (Adult - for ages 18 years and over): Not on file Do you (or your family) have trouble finding or paying for a ride (transportation)? (Household - for ages 0-17 years): Not on file Social Connections: Socially Integrated (12/08/2023) Social Connections How often do you feel lonely or isolated from those around you? (Adult - for ages 18 years and over): Never Housing Stability: Low Risk (12/08/2023) Housing Stability Do you currently live in a detention or have no steady place to sleep at night? (Adult - for ages 18 years and over): No Do you think you are at risk of becoming homeless? (Adult - for ages 18 years and over): No Does your family worry about paying for your home or becoming homeless? (Household - for ages 0-17 years): Not on file Are you homeless or worried that you might be in the future? (Adult - for ages 18 years and over): Not on file Are you (or your family) homeless or worried that you might be in the future? (Household - for ages0-17 years): Not on file PMH: Past Medical History: Diagnosis Date Asthma, exercise induced Crohn's disease (HCC) Dyslipidemia, goal LDL below 70 12/10/2023 GERD (gastroesophageal reflux disease) Hypothyroidism 2009 Low back pain with right-sided sciatica 12/12/2016 Urinary problem no current issues Past Surgical History: Procedure Laterality Date COLONOSCOPY 2010 [facility] COLONOSCOPY, DIAGNOSTIC (RECTUM) 07/11/2014 normal bx, repeat 5 yrs/COLONOSCOPY FLEXIBLE PROXIMAL DIAGNOSTIC performed by Tatiana Reynoso DO at ENDOSCOPY [facility] COLONOSCOPY, DIAGNOSTIC (RECTUM) 07/07/2019 normal bx, repeat 3 yrs/COLONOSCOPY FLEXIBLE PROXIMAL DIAGNOSTIC performed by Tatiana Reynoso DO at ENDOSCOPY [facility] COLONOSCOPY, DIAGNOSTIC (RECTUM) 08/24/2023 hemorrhoids/biopsies normal/recall 3 years/COLONOSCOPY FLEXIBLE PROXIMAL DIAGNOSTIC performed by Tatiana Reynoso DO at ENDOSCOPY [facility] CYSTO W/UP STRICTURE TX age 3, [id number] stricture, 3 cysto/retro dilatation at [place] EGD, FLEXIBLE, INSERT WIRE, PASS DILATOR 10/03/2011 dilation to 40 with savery EGD, FLEXIBLE, W/BIOPSY 10/03/2011 biopsy INJECT DX/THER SUBSTANCE INTERLAMINAR LUMBAR/SACRAL W IMAGE GUIDE 03/19/2017 INJECTION SPINE LUMBAR OR SACRAL performed by [place] Sabrina Ceballos, DO at OR [facility] INJECT DX/THER SUBSTANCE INTERLAMINAR LUMBAR/SACRAL W IMAGE GUIDE 05/03/2018 INJECTION SPINE LUMBAR OR SACRAL performed by [facility] Lin, DO at OR [facility] INJECT DX/THER SUBSTANCE INTERLAMINAR LUMBAR/SACRAL W IMAGE GUIDE 06/07/2018 INJECTION SPINE LUMBAR OR SACRAL performed by [place] Sabrina Ceballos, DO at OR [facility] LUMBAR / SACRAL EPIDURAL, SINGLE LEVEL 04/09/2017 INJECTION TRANSFORAMINAL EPIDURAL LUMBAR OR SACRAL performed by Jac Sabrina Ceballos, DO at OR [facility] LUMBAR HEMILAMINECTOMY Right 08/09/2018 LAMINOTOMY DECOMPRESSION NERVE ROOT LUMBAR performed by John Ulloa MD at [facility] MICROSURGERY ADD-ON Right 08/09/2018 MICROSURGICAL SURGERY REQUIRING MICROSCOPE LISTED SEPARATELY performed by John Ulloa MD at [facility] REMOVAL OF TONSILS, AGE 12+ age 17, 1996 [facility], [place] REPAIR INITIAL INGUINAL HERNIA REDUCIBLE AGE 5 OR MORE 09/06/2013 09/06/2013 repair of left indirect inguinal hernia with mesh- [facility] Dr. Janny Reynoso Current Outpatient Medications Medication Sig Dispense Refill predniSONE 10 MG Oral Tablet (Deltasone) Take 5 tabs for 2 days, 4 tabs for 2 days, 3 tabs for 2 days, 2 tabs for 2 days 1 tab for 2 days 30 Tablet 0 Balsalazide Disodium 750 MG Oral Capsule TAKE 1 CAPSULE IN THE MORNING, 1 CAPSULE AT NOON AND 1 CAPSULE BEFORE BEDTIME 270 Capsule 1 Omeprazole 20 MG Oral Capsule Delayed Release (PriLOSEC) TAKE 1 CAPSULE IN THE MORNING 90 Capsule 1 Levothyroxine Sodium 100 MCG Oral Tablet (Levoxyl) TAKE 1 TABLET BY MOUTH ONCE DAILY IN THE MORNINGAT LEAST 30 MINUTES PRIOR TO BREAKFAST/OTHER MEDS 90 Tablet 3 Rosuvastatin Calcium 10 MG Oral Tablet (Crestor) Take 1 Tablet by mouth in the morning. 90 Tablet 3 Eliana FE 10/17 1-20 MG-MCG Oral Tablet (Norethin Julian-Eth Estrad-FE) TAKE 1 TABLET DAILY 84 Tablet 3 Albuterol Sulfate HFA 108 (90 Base) MCG/ACT Inhalation Aerosol Solution Inhale 2 Puffs by mouth in the morning and 2 Puffs at noon and 2 Puffs in the evening and 2 Puffs before bedtime. 8 g 3 Ondansetron HCl 4 MG Oral Tablet Take 1 Tablet by mouth every 6 hours as needed for Nausea. 30 Tablet 0 LORazepam 0.5 MG Oral Tablet (Ativan) 1 TABLET EVERY 8 HOURS NEEDED FOR ANXIETY 20 Tablet 0 Loratadine 10 MG Oral Tablet Take 1 Tablet by mouth in the morning. 30 Tab 11 Probiotic Product (PROBIOTIC & ACIDOPHILUS EX ST) Capsule Take 1 Cap by mouth daily. WOMENS MULTI VITAMIN & MINERAL PO TABS once daily COVID-19 At Home Antigen Test In Vitro Kit Use as directed. 1 Each 0 D3-1000 25 MCG (1000 UT) Oral Capsule (Cholecalciferol) Take 1 Capsule by mouth in the morning. (Patient not taking: Reported on 07/14/2024) fluticasone (FLONASE) 50 MCG/ACT nasal spray INSTILL 2 SPRAYS INTO EACH NOSTRIL TWICE DAILY (Patient not taking: Reported on 07/14/2024) 16 g 5 No current facility-administered medications for this visit. Review of patient's allergies indicates: Allergen Reactions Adhesive Tape Rash Augmentin [Amoxicillin-Pot Clavulanate] Diarrhea Citalopram Hydrobromide Tachycardia Gluten Gluten Meal Latex Rash Sulfa Antibiotics Rash Most Recent Immunizations Administered Date(s) Administered COVID-19 mRNA, LNP-s, No Preserve, 2-Dose Series ([employer]) 07/02/2022 Pneumococcal Conjugate Vaccine, 20-valent ([id number]) 11/25/2022 Seasonal Influenza Vac., MDV, IM, 0.5 mL (Fluzone) 08/03/2014 Seasonal Influenza, PF, 6 M & above, IM , (FluLaval or Fluzone) 07/23/2023 Seasonal Influenza, Quadrivalent, No Preserve, IM 08/08/2016 TDAP (age 10 and older)(Boostrix) 11/09/2021 TDAP, Age 7 and older, IM (Adacel) 09/02/2010 Review of Systems: Physical Exam BP 118/80 | Pulse 80 | Temp 36.9 C (98.5 F) | Resp 16 | Ht 1.651 m (5' 5") | Wt 88.4 kg (194 lb12.8 oz) | SpO2 96% | BMI 32.42 kg/m | BSA 2.01 m Physical Exam Constitutional: Appearance: Normal appearance. HENT: Head: Normocephalic. Right Ear: Tympanic membrane, ear canal and external ear normal. Left Ear: Tympanic membrane, ear canal and external ear normal. Nose: Nose normal. Right Sinus: No maxillary sinus tenderness or frontal sinus tenderness. Left Sinus: No maxillary sinus tenderness or frontal sinus tenderness. Mouth/Throat: Pharynx: No posterior oropharyngeal erythema. Cardiovascular: Rate and Rhythm: Normal rate and regular rhythm. Pulmonary: Effort: Pulmonary effort is normal. Breath sounds: Normal breath sounds. Musculoskeletal: Cervical back: Neck supple. Skin: General: Skin is warm. Neurological: Mental Status: She is alert and oriented to person, place, and time. Psychiatric: Mood and Affect: Mood normal. Assessment and Plan 1. Bronchitis, complicated Not improved with prednisone taper/mucinex over 8 days Cont albuterol 4-6 hours, neti pot/flonase otc, humidifier at night - Azithromycin 250 MG Oral Tablet (Zithromax Z-Brad); Take two tablets by mouth on first day, then 1tablet daily until gone Dispense: 6 Tablet; Refill: 0 - RETURN TO WORK OR SCHOOL 2. Bronchospasm, exercise-induced Wrap-Up Recommend supportive care including: Humidifier Rest Push fluids Reviewed pathophysiology of viral URI Recommend handwashing and covering cough Reviewed signs and symptoms in which to seek medical care I have advised the patient to call our office incase of any worsening or new symptoms. A total of 20 minutes were spent with the patient, more than half in [id number] explanation and discussion of the condition and treatment and answering questions. Nas Lyn, MSN, CR[facility] [facility] Medicine documented in this encounter Nursing Notes * Claire Fu LPN - 07/14/2024 10:49 AM EDT The patient has been properly identified by confirmation of name and date of . Chief Complaint Patient presents with Acute Symptoms started one week ago with rash, fever. Had telemed-took prednisone. Starting to feel heaviness in chest, green/ware mucous yesterday documented in this encounter Plan of Treatment Upcoming Encounters Date Type Department Care Team (Late st Contact Info) Description 08/01/2024 9:30 AM EST [facility] [address] [place] [address] Courtney Mendoza RDN [address] [place] [address] 10/19/2024 11:00 AM EST Office Visit Gastroenterology, [facility] [address] [place] [address] Jos Britt CRNP [address] [place] [place] [address] 12/09/2024 12:40 PM EDT Office Visit Family Practice [facility] [address] [place] [address] Brigido Pérez MD [address] [place] [address] Scheduled Procedures Name Priority Associated Diagnoses Date/Ti [...] as of this encounter Visit Diagnoses Diagnosis Bronchitis, complicated- Primary Bronchitis, not specified as acute or chronic Bronchospasm, exercise-induced Exercise induced bronchospasm documented in this encounter Advance Directives [...] and were consensually agreed upon. Care Teams Research Group Director Relationship Specialty Start Date End Date Brigido Pérez MD [address] [place] [address] PCP - General Family Medicine 12/12/16 documented as of this encounter
--- OUTSIDE RECORDS SUMMARY | 2024-09-14 23:29 | External Medical Summary | Summary of Care ---
Author Name Unknown Organization [facility] Address [address] [facility] [place] [address] Phone [phone] Care Team Providers Care Audit Manager Name Role Phone Brigido Pérez MD Primary Care Provider + Reason for Visit * Reason Onset Date Comments Medical Nutrition Therapy 06/24/2024 Encounter Details Date Type Department Care Team (Late st Contact Info) Description 06/24/2024 1:30 PM EDT Scheduled Telephone Jazmyne Maldonado [address] [place] [address] Courtney Mendoza RDN [address] [place] [address] Allergies Active Allergy Reactions Criticality Noted Date [...] 02/09/2024 Active Balsalazide Disodium 750 MG Oral CapsuleIndications:Winder Fixer hn's disease of small intestine without complication [...] mRNA, LNP-s, No Pre serve, 2-Dose Series (Zwamy) 07/02/2022,08/14/2021,12/15/2020,2020 Pneumococcal Conjugate Vacci ne, 20-valent ([id number]) 11/25/2022 Seasonal Influenza, PF, 6 M & [...] No 12/08/2023 Does the household have a [facility] source of income? (Household - for [...] 01. Courtney Mendoza RDN, Clinical Dietitian II, [facility] Clinical Nutrition Services [facility] [address] [place] [address] Available via [place] [employer] documented in this encounter Plan of Treatment Upcoming Encounters Date Type Department Care Team (Late st Contact Info) Description 08/01/2024 9:30 AM EST [facility] [address] [place] [address] Courtney Mendoza RDN [address] [place] [address] 10/19/2024 11:00 AM EST Office Visit Gastroenterology, [facility] [address] [address] Jos Britt CRNP [address] [place] [address] 12/09/2024 12:40 PM EDT Office Visit Family [facility] [address] [place] [address] Brigido Pérez MD [address] [place] [address] Scheduled Procedures Name Priority Associated Diagnoses Date/Ti [...] and were consensually agreed upon. Care Teams Audit Manager Relationship Specialty Start Date End Date Brigido Pérez MD [address] [place] [address] PCP - General Family Medicine 12/12/16 documented as of this encounter
--- OUTSIDE RECORDS SUMMARY | 2024-09-14 23:29 | External Medical Summary | Summary of Care ---
Author Name Unknown Organization [facility] Address [address] [facility] [place] [address] Phone [phone] Care Team Providers Care Utilization Management Manager Name Role Phone Brigido Pérez MD Primary Care Provider + Reason for Visit * Reason Comments eRx-Medication Refill Encounter Details Date Type Department Care Team (Late st Contact Info) Description 06/17/2024 Refill Gastroenterology, [facility] [address] [place] [address] Franky Britt CRNP [address] [place] [address] Allergies Active Allergy Reactions Criticality Noted Date Comments Adhesive Tape Rash 09/07/2018 Amoxicillin-Pot Clavulanate Diarrhea 01/20/20 19 Citalopram Hydrobromide Tachycardia 10/03/2013 Gluten 04/20/2014 Gluten Meal 09/07/2017 Latex Rash 08/02/2013 Sulfa Antibiotics Rash 03/20/2016 documented as of this encounter (statuses as of 06/17/2024) Medications Medication Sig Dispensed Refills Start Date [...] HER MEDS 90 Tablet 3 02/09/2024 Active Balsalazide Disodium 750 MG Oral CapsuleIndications: Crohn's disease of small intestine without complication (HCC) TAKE 1 CAPSULE IN THE MORNING, 1 CAPSULE AT NOON AND 1 CAPSULE BEFORE BEDTIME 270 Capsule 04/05/2024 Active Omeprazole 20 MG Oral Capsule Delayed Release (PriLOSEC) TAKE 1 CAPSULE IN THE MORNING 90 Capsule 1 06/17/2024 Active Omeprazole 20 MG Oral Capsule Delayed Release (PriLOSEC) TAKE 1 CAPSULE IN THE MORNING 90 Capsule 03/22/2024 4 Discontinued documented as of this encounter (statuses as of 06/17/2024) Active Problems Problem Noted Date Diagnosed Date [...] as of this encounter (statuses as of 06/17/2024) Immunizations Name Administration Dates Next Due COVID-19 mRNA, LNP-s, No Pre serve, 2-Dose Series (Fastclick) 07/02/2022,08/14/2021,12/15/2020,2020 Pneumococcal Conjugate Vacci ne, 20-valent ([id number]) 11/25/2022 Seasonal Influenza, PF, 6 M & above, IM , (FluLaval or Fluzone) 07/23/2023,07/24/2022,08/09/2021,2019,06/29/2019,07/28/2018,07/23/2017 Seasonal Influenza, Quadriva lent, No Preserve, IM 08/08/2016,08/17/2015 Seasonal Influenza, Trivalen t, (IIV3), with Preserv, (Fluzone) 08/03/2014,08/22/2013,06/23/2012,2010,07/01/2010 TDAP (age 10 and older)(Boostrix) 11/09/2021 [...] encounter Miscellaneous Notes * Telephone Encounter - Ruel Tinsley RPh - 06/17/2024 11:46 AM EDTSigned Prescriptions: Disp Refills Omeprazole 20 MG Oral Capsule Delayed Rele*90 Cap*1 Sig: TAKE 1 CAPSULE IN THE MORNINGAuthorizing Provider: FRANKY BRITT User: RUEL TINSLEY--------- documented in this encounter Plan of Treatment Upcoming Encounters Date Type Department Care Team (Late st Contact Info) Description 08/01/2024 9:30 AM EST Nutrition Services Nutrition, [facility] [address] [address] [address] Courtney Mendoza RDN [address] [place] [address] 10/19/2024 11:00 AM EST Office Visit Gastroenterology, [facility] [address] [address] Franky Britt CRNP [address] [place] [address] 12/09/2024 12:40 PM EDT Office Visit Family [facility] [address] [address] Brigido Pérez MD [address] [place] [address] Scheduled Procedures Name Priority Associated Diagnoses Date/Ti [...] and were consensually agreed upon. Care Teams Utilization Management Manager Relationship Specialty Start Date End Date Brigido Pérez MD [address] [place] [address] PCP - General Family Medicine 12/12/16 documented as of this encounter
--- OUTSIDE RECORDS SUMMARY | 2024-09-14 23:30 | External Medical Summary ---
Author Name Unknown Address Unknown Organization K01:[facility] - [address] [place] [address] Laboratory Report Ordering Provider Test Date Status KYLIE LIPSCOMB 04/27/2024 08:08:43 Final Observation Date Value Abnormality Reference (Units ) Status Magnesium 04/27/2024 08:08:43 2.1 1.5-2.6 (m g/dL) Final Performing Location [facility] - [address] [place] [address]
--- OUTSIDE RECORDS SUMMARY | 2024-09-14 23:30 | External Medical Summary ---
Author Name Unknown Address Unknown Organization K01:[facility] [place] [address] [place] [address] Laboratory Report Ordering Provider Test Date Status SHELBI SNOW 04/27/2024 08:08:43 Final Observation Date Value Abnormality Reference (Units ) Status NextFit SPECIMEN-LAV 04/27/2024 08:08:43 Freezing of extracted DNA, whole blood and/or serum. Final Performing Location LABORATORY C - [address] [place] [address]
--- OUTSIDE RECORDS SUMMARY | 2024-09-14 23:30 | External Medical Summary | Summary of Care ---
Author Name Unknown Organization [facility] Address [address] [facility] [place] [address] Phone [phone] Care Team Providers Care Material Movers Name Role Phone Brigido Pérez MD Primary Care Provider + Reason for Referral * Evaluate & Treat - Unlimited Visits (Within 30 days (routine)) - Authorized Specialty Diagnoses / Procedures Referred By Stevie lim Referred To Contact Dietitian / Nutrition Services Diagnoses Class 1 obesity without serious comorbidity with body mass index (BMI) of 32.0 to 32.9 in adult, unspecified obesity type Nas Lyn CRNP [address] [place] [address] Referral ID Status Reason Start Date Expiration Date Visits Requested Visits Authorized [id number] Authorized Specialty Services Required 04/27/[phone] Question Answer Referral Priority Within 30 days (routine) Where should this appointment be scheduled? [facility] What condition is the patient being seen for? Weight Reduction/Excessive Weight Gain Is the patient expecting to obtain weight loss medication or discuss surgical options? No Comments Medical Nutrition Therapy Reason for Visit * Reason Comments PAP Encounter Details Date Type Department Care Team (Late Contact Info) Description 04/27/2024 8:40 AM EDT Office Visit Family Practice [facility] [address] [address] Nas Lyn CRNP [address] [place] [address] Pap smear for cervical cancer screening*; Class 1 obesity without serious comorbidity with body mass index (BMI) of 32.0 to 32.9 in adult, unspecified obesity type Allergies Active Allergy Reactions Criticality Noted Date Comments Adhesive Tape Rash 09/07/2018 Amoxicillin-Pot Clavulanate Diarrhea 01/20/20 19 Citalopram Hydrobromide Tachycardia 10/03/2013 Gluten 04/20/2014 Gluten Meal 09/07/2017 Latex Rash 08/02/2013 Sulfa Antibiotics Rash 03/20/2016 documented as of this encounter (statuses as of 04/27/2024) Medications Medication Sig Dispensed Refills Start Date [...] 03/22/2024 Active Balsalazide Disodium 750 MG Oral CapsuleIndications: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 hn's disease of small intestine without complication (HCC) TAKE 1 CAPSULE IN THE MORNING, 1 CAPSULE AT NOON AND 1 CAPSULE BEFORE BEDTIME 270 Capsule 04/05/2024 Active documented as of this encounter (statuses as of 04/27/2024) Active Problems Problem Noted Date Diagnosed Date [...] as of this encounter (statuses as of 04/27/2024) Immunizations Name Administration Dates Next Due COVID-19 mRNA, LNP-s, No Pre serve, 2-Dose Series (Vanatec) 07/02/2022,08/14/2021,12/15/2020,2020 Pneumococcal Conjugate Vacci ne, 20-valent ([id number]) 11/25/2022 Seasonal Influenza, PF, 6 M & above, IM , (FluLaval or Fluzone) 07/23/2023,07/24/2022,08/09/2021,2019,06/29/2019,07/28/2018,07/23/2017 Seasonal Influenza, Quadriva lent, No Preserve, IM 08/08/2016,08/17/2015 Seasonal Influenza, Split, I IV3, With Preserve, Inj 08/03/2014,08/22/2013,06/23/2012,2010,07/01/2010,08/26/2005 TDAP (age 10 and older)(Boostrix) 11/09/2021 TDAP, Age 7 and older, IM (Adacel) 09/02,07/01/2010(Deferred: Patient Refused) documented as of this encounter Social History Tobacco Use Types Packs/Day Years Used Date Smoking Tobacco: Never Smokeless Tobacco: Never Tobacco Cessation:Counseling Given: Not Answered Alcohol Use Standard Drinks/Week Comments Yes 0 [...] Sign Reading Time Taken Comments Blood Pressure 112/82 04/27/2024 8:28 AM EDT Pulse 68 04/27/2024 8:28 AM EDT Temperature 36.4 C (97.6 F) 04/27/2024 8:28 AM ED T Respiratory Rate 12 04/27/2024 8:28 AM EDT Oxygen Saturation - - Inhaled Oxygen Concentration - - Weight 89 kg (196 lb 3.2 oz) 04/27/2024 8:28 AM EDT Height - - Body Mass Index 32.65 12/09/2023 11:26 AM EDT documented in this encounter Functional [...] Progress Notes * Nas Lyn CRNP - 04/27/2024 8:33 AM EDT Images from the original note were not included. Well Woman Complete Physical History of Present Illness Vanesa Casas is a very pleasant 43 year old year old female presenting for well woman exam today. Screenings Family hx of CA - colon cancer grandmother Hx of breast disease- denies Hx of abnormal pap- denies Hx of gynecology surgery - denies Last Mammo-2023 Last PAP- 2021, normal Colonoscopy- 2022, due 2025 Screening labs for cholesterol and blood sugar - yes UTD on vaccines- yes Menstruation Cycles are regular. Heavy for first few days then tapers off. 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 . no DV. 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 (Adult - for ages 18 years and over): No Food Insecurity: No Food Insecurity (12/08/2023) Food Insecurity Do you need food for this week? (Adult - for ages 18 years and over): No Transportation Needs: No Transportation Needs (12/08/2023) Transportation Needs Do you have trouble getting a ride to medical visits or work? (Adult - for ages 18 years and over):Never True Social Connections: Socially Integrated (12/08/2023) Social Connections How often do you feel lonely or isolated from those around you? (Adult - for ages 18 years and over): Never Housing Stability: Low Risk (12/08/2023) Housing Stability Do you currently live in a chcf or have no steady place to sleep at night? (Adult - for ages 18 years and over): No Do you think you are at risk of becoming homeless? (Adult - for ages 18 years and over): No Family History Problem Relation Name Age of Onset Thyroid Disorder Mother multi-nodular thyroid. [facility]. Allergies Mother Sulfa Arthritis Mother Osteo Eye Problems Mother Cataract Hypertension Mother Heart Disorder Mother leaky valve Heart Disorder Father 52 age 62- [place]. smoked. Diabetes Father Type 2 Coronary Artery disease Brother 49 3 out of 4 blocked arteries Cancer Grandmother (Maternal) 92 Colon Eye Problems Grandmother (Maternal) Cataract Hypertension Grandmother (Maternal) Eye Problems Grandfather (Maternal) Cataract Hypertension Grandfather (Maternal) Neurological Disorder Grandfather (Maternal) Parkinson's Heart Disorder Grandfather (Maternal) 65 65 mi Stroke Grandfather (Maternal) Heart Disorder Grandfather (Paternal) 65 of heart dx Gastro-intestinal disorder Aunt (Unspecified) Crohns Heart Disorder Uncle (Unspecified) [place] Heart Disorder Uncle (Unspecified) [place] Heart Disorder Uncle (Unspecified) hx heart dx Heart Disorder Uncle (Unspecified) hx heart dx Eye Problems Uncle (Unspecified) Heart Disorder Uncle (Unspecified) maternal-valve replacement Cancer Uncle (Unspecified) maternal uncle-prostate Breast Cancer No significant family history Colon cancer No significant family history Ovarian cancer No significant family history Past Medical History: Diagnosis Date Asthma, exercise induced Crohn's disease (HCC) Dyslipidemia, goal LDL below 70 12/10/2023 GERD (gastroesophageal reflux disease) Hypothyroidism 2009 Low back pain with right-sided sciatica 12/12/2016 Urinary problem no current issues Physical Exam BP 112/82 (BP Site: Left Arm, BP Position: Sitting, BP Cuff Size: Large) | Pulse 68 | Temp 36.4 C(97.6 F) (Tympanic) | Resp 12 | Wt 89 kg (196 lb 3.2 oz) | BMI 32.65 kg/m | BSA 2.02 m Physical Exam Constitutional: Appearance: Normal appearance. She is well-developed and well-groomed. HENT: Head: Normocephalic. Right Ear: Tympanic membrane, ear canal and external ear normal. Left Ear: Tympanic membrane, ear canal and external ear normal. Nose: Nose normal. Mouth/Throat: Mouth: Mucous membranes are moist. Pharynx: Oropharynx is clear. Eyes: Extraocular Movements: Extraocular movements intact. Conjunctiva/sclera: Conjunctivae normal. Pupils: Pupils are equal, round, and reactive to light. Cardiovascular: Rate and Rhythm: Normal rate and regular rhythm. Pulses: Normal pulses. Heart sounds: Normal heart sounds. Pulmonary: Effort: Pulmonary effort is normal. Breath sounds: Normal breath sounds. Abdominal: General: Bowel sounds are normal. Palpations: Abdomen is soft. Musculoskeletal: General: Normal range of motion. Cervical back: Normal range of motion. Skin: General: Skin is warm and dry. Capillary Refill: Capillary refill takes less than 2 seconds. Neurological: General: No focal deficit present. Mental Status: She is alert. Psychiatric: Mood and Affect: Mood normal. Assessment and Plan 1. Pap smear for cervical cancer screening - WINDOW CUTTER PAP SCREEN; Future 2. Class 1 obesity without serious comorbidity with body mass index (BMI) of 32.0 to 32.9 in adult,unspecified obesity type - NUTRITION-CLINICAL DIETITIAN REFERRAL OP Wrap-Up Anticipatory Guidance: Breast Screening recommendations: > 40 years for average risk patients Pap screening recommendation (Age 21-65): every 3 years with cervical cytology only or every 5 years cytology with high-risk human papilomavirus (hrHPV) testing. Bone Health Recommendation: > 65 years I spent a total of 30-39 minutes (exact time 30 mins) on the date of service in preparation, delivery, and documentation of the care provided to Vanesa Casas excluding any time spent in the performance of separately billed services. Nas Lyn, MSN, [facility] documented in this encounter Nursing Notes * Lawson Llanos RN - 04/27/2024 8:30 AM EDT Chief Complaint Patient presents with PAP documented in this encounter Plan of Treatment Upcoming Encounters Date Type Department Care Team (Late st Contact Info) Description 04/29/2024 1:00 PM EDT Nutrition Services Nutrition, [facility] [address] [place] [address] Courtney Mendoza RDN [address] [place] [address] 12/09/2024 12:40 PM EDT Office Visit Family Practice [facility] [address] [place] [address] Brigido Pérez MD [address] [place] [address] Scheduled Orders Name Type Priority Associated Diagnoses Orde r Schedule WINDOW CUTTER PAP SCREEN Pathology Routine Pap smear for cervical cancer screening Expected: 04/27/2024, Expires: 05/28/2025 Scheduled Procedures Name Priority Associated Diagnoses Date/Ti [...] 02/16/2025 02/17/2024, 01/26, 02/04/2022, Additional history exists Diabetes Screening 03/25/2026 03/25/2023, 0 11/18/2022, 01/10/2021, Additional history exists Colonoscopy 08/24/2026 08/24/2023, 07/30, 07/07/2019, Additional history exists Colorectal Cancer Screening 08/24/2026 Lipid Panel 01/07/2029 01/08/2024, 10/30, 11/09/2021, Additional history exists DTaP,Tdap,and Td Vaccines (3 - Td or Tdap) 11/09/2031 11/09/2021, 09/02/2010 HIV Screening Completed 09/07/2018 Pneumococcal Vaccine: Pediatrics (0 to 5 Years) [...] as of this encounter Visit Diagnoses Diagnosis Pap smear for cervical cancer screening- Primary Screening for malignant neoplasm of the cervix Class 1 obesity without serious comorbidity with body mass index (BMI) of 32.0 to 32.9 in adult, unspecified obesity type documented in this encounter Advance Directives * Full Code (Latest Code Status on File) Date Activated Date Inactivated Comments 08/09/2018 2:31 PM 08/10/2018 7:19 PM This order reflects the patients wishes and were consensually agreed upon. * Full Code Date Activated Date Inactivated Comments 08/09/2018 6:40 AM 08/09/2018 2:31 PM This order reflects the patients wishes and were consensually agreed upon. Care Teams Material Movers Relationship Specialty Start Date End Date Brigido Pérez MD [address] [place] [address] PCP - General Family Medicine 12/12/16 documented as of this encounter"
--- OUTSIDE RECORDS SUMMARY | 2024-09-14 23:30 | External Medical Summary | Summary of Care ---
Author Name Unknown Organization [facility] Address [address] [facility] [place] [address] Phone [phone] Care Team Providers Care Brewmaster Name Role Phone Brigido Pérez MD Primary Care Provider + Reason for Visit * Reason Comments Outpatient Testing Encounter Details Date Type Department Care Team (Late st Contact Info) Description 04/27/2024 8:10 AM EDT Laboratory Laboratory, [facility] [address] [facility] [phone] [facility] [address] [facility] [address] [employer] Other*[id number]; Encounter for long-term (current) drug use; Crohn's disease of small intestine without complication [...] 03/22/2024 Active Balsalazide Disodium 750 MG Oral CapsuleIndications:Nurse Care Manager hn's disease of small intestine without complication [...] mRNA, LNP-s, No Pre serve, 2-Dose Series (Incuboom) 07/02/2022,08/14/2021,12/15/2020,2020 Pneumococcal Conjugate Vacci ne, 20-valent ([id number]) 11/25/2022 Seasonal Influenza, PF, 6 M & [...] No 12/08/2023 Does the household have a [facility] source of income? (Household - for [...] Care Team (Late st Contact Info) Description 04/27/2024 8:40 AM EDT Office Visit [facility] [address] [address] Nas Lyn CRNP [address] [address] Arrived 12/09/2024 12:40 PM EDT Office Visit [facility] [address] [place] [address] Brigido Pérez MD [address] [place] [address] Pending Results Name Type Priority Associated Diagnoses Date /Time MYCODE INITIAL ADULT Lab Routine MyCode Research Other*[id number] 04/27/2024 8:08 AM EDT VITAMIN B12 Lab Routine Encounter for long-term (current) drug use 04/27/2024 8:08 AM EDT MAGNESIUM Lab Routine Encounter for long-term (current) drug use 04/27/2024 8:08 AM EDT CBC Lab Routine Crohn's disease of small intestine without complication (HCC) 04/27/2024 8:08 AM EDT COMPREHENSIVE METABOLIC PANEL Lab Routine Crohn's disease of small intestine without complication (HCC) 04/27/2024 8:08 AM EDT MYCODE INITIAL ADULT-PINK Lab Routine MyCode [employer] Other*[id number] 04/27/2024 8:08 AM EDT MYCODE SST1 Lab Routine MyCode [employer] Other*[id number] 04/27/2024 8:08 AM EDT MYCODE SST2 Lab Routine MyCode [employer] Other*[id number] 04/27/2024 8:08 AM EDT Scheduled Procedures Name Priority Associated Diagnoses Date/Ti [...] this encounter Visit Diagnoses Diagnosis MyCode [employer] Other*[id number] Encounter for long-term (current) drug use Encounter for long-term (current) use of other medications Crohn's disease of small intestine without complication [...] and were consensually agreed upon. Care Teams Brewmaster Relationship Specialty Start Date End Date Brigido Pérez MD [address] [place] [address] PCP - General Family Medicine 12/12/16 documented as of this encounter
--- OUTSIDE RECORDS SUMMARY | 2024-09-14 23:30 | External Medical Summary ---
Author Name Unknown Address Unknown Organization K01:LABORATORY [facility] [place] - [address] [place] [address] Laboratory Report Ordering Provider Test Date Status SHELBI SNOW 04/27/2024 08:08:43 Final Observation Date Value Abnormality Reference (Units ) Status MYCODE SPECIMEN-SST 04/27/2024 08:08:43 Freezing of extracted DNA, whole blood and/or serum. Final Performing Location LABORATORY C - [address] [place] [address]
--- OUTSIDE RECORDS SUMMARY | 2024-09-14 23:30 | External Medical Summary ---
Author Name Unknown Address Unknown Organization K01:[facility]ORY [facility] [place] [address] [place] [address] Laboratory Report Ordering Provider Test Date Status SHELBI SNOW 04/27/2024 08:08:43 Final Observation Date Value Abnormality Reference (Units ) Status MYCODE SPECIMEN-SST 04/27/2024 08:08:43 Freezing of extracted DNA, whole blood and/or serum. Final Performing Location LABORATORY C - [address] [place] [address]
--- OUTSIDE RECORDS SUMMARY | 2024-09-14 23:30 | External Medical Summary | Summary of Care ---
Author Name Unknown Organization [facility] Address [address] [facility] [place] [address] Phone [phone] Care Team Providers Care Environmental Attorney Name Role Phone Brigido Pérez MD Primary Care Provider + Reason for Visit * Reason Comments eRx-Medication Refill Encounter Details Date Type Department Care Team (Late st Contact Info) Description 04/04/2024 Refill Gastroenterology, [facility] [address] [place] [address] Franky Britt CRNP [address] [place] [address] Crohn's disease of small intestine without complication (HCC) Allergies Active Allergy Reactions Criticality Noted Date Comments Adhesive Tape Rash 09/07/2018 Amoxicillin-Pot Clavulanate Diarrhea 01/20/20 19 Citalopram Hydrobromide Tachycardia 10/03/2013 Gluten 04/20/2014 Gluten Meal 09/07/2017 Latex Rash 08/02/2013 Sulfa Antibiotics Rash 03/20/2016 documented as of this encounter (statuses as of 04/05/2024) Medications Medication Sig Dispensed Refills Start Date [...] 03/22/2024 Active Balsalazide Disodium 750 MG Oral CapsuleIndications: Crohn's disease of small intestine without complication (HCC) TAKE 1 CAPSULE IN THE MORNING, 1 CAPSULE AT NOON AND 1 CAPSULE BEFORE BEDTIME 270 Capsule 04/05/2024 Active Balsalazide Disodium 750 MG Oral CapsuleIndications: Crohn's disease of small intestine without complication (HCC) Take 1 Capsule by mouth in the morning and 1 Capsule at noon and 1 Capsule before bedtime. 270 Capsule 3 03/25/2023 4 Discontinued documented as of this encounter (statuses as of 04/05/2024) Active Problems Problem Noted Date Diagnosed Date [...] as of this encounter (statuses as of 04/05/2024) Immunizations Name Administration Dates Next Due COVID-19 mRNA, LNP-s, No Pre serve, 2-Dose Series (Pfizer) 07/02/2022,08/14/2021,12/15/2020,2020 Pneumococcal Conjugate Vacci ne, 20-valent ([id number]) 11/25/2022 Seasonal Influenza, PF, 6 M & [...] Notes * Telephone Encounter - Jelena Pepper [facility] - 04/05/2024 2:53 PM EDTSigned Prescriptions: Disp Refills Balsalazide Disodium 750 MG Oral Capsule 270 Ca*0 Sig: TAKE 1 CAPSULE IN THE MORNING, 1 CAPSULE AT NOON AND 1 CAPSULE BEFORE BEDTIMEAuthorizing Provider: FRANKY BRITT User: JELENA PEPPER * Telephone Encounter - Jelena Pepper [facility] - 04/05/2024 2:53 PM EDT Patient was notified recently of need for office visit and labs. One refill placed. * Telephone Encounter - Bari Tinsley [facility] - 04/05/2024 2:38 PM EDTPending Prescriptions: Disp Refills Balsalazide Disodium 750 MG Oral Capsule [*270 Ca*3 Sig: TAKE 1CAPSULE IN THE MORNING, 1 CAPSULE AT NOON AND 1 CAPSULE BEFORE BEDTIME documented in this encounter Plan of Treatment Upcoming Encounters Date Type Department Care Team (Late st Contact Info) Description 04/27/2024 8:10 AM EDT Laboratory Laboratory, [facility] [address] [place] [address] Miguel Ko [facility] [address] [place] [address] 04/27/2024 8:40 AM EDT Office Visit [facility] [address] [place] [address] Nas Lyn CRNP [address] [place] [address] 12/09/2024 12:40 PM EDT Office Visit [facility] [address] [place] [address] Brigido Pérez MD [address] [place] [address] Scheduled Orders Name Type Priority Associated Diagnoses Orde r Schedule CBC Lab Routine Crohn's disease of small intestine without complication (HCC) Expected: 04/05/2024, Expires: 04/05/2025 COMPREHENSIVE METABOLIC PANEL Lab Routine Crohn's disease of small intestine without complication (HCC) Expected: 04/05/2024, Expires: 04/05/2025 Scheduled Procedures Name Priority Associated Diagnoses Date/Ti me COLONOSCOPY FLEXIBLE PROXIMAL DIAGNOSTIC Recall Crohn's colitis (HCC) Health Maintenance Due Date Last Done Comments Hepatitis C Screening 1996 Hepatitis B Vaccine (1 of 3 - 19+ 3-dose series) 1997 HPV/Co-Test 2008 COVID-19 Vaccine (2022-24 season) 2023 07/02/2022, 08/14/2021, 12/15/2020, Additional history [...] and were consensually agreed upon. Care Teams Environmental Attorney Relationship Specialty Start Date End Date Brigido Pérez MD [address] [place] [address] PCP - General Family Medicine 12/12/16 documented as of this encounter
--- OUTSIDE RECORDS SUMMARY | 2024-09-14 23:30 | External Medical Summary ---
Author Name Unknown Address Unknown Organization [facility] [place] [address] [place] [address] Laboratory Report Ordering Provider Test Date Status JES BOWLES 04/27/2024 08:08:43 Final Observation Date Value Abnormality Reference (Units ) Status WBC, Total 04/27/2024 08:08:43 8.90 4.00-10.8 0 (K/uL) Final RBC 04/27/2024 08:08:43 4.84 3.85-5.15 (M/uL) Final Hemoglobin 04/27/2024 08:08:43 14.4 12.0-15.3 (g/dL) Final HCT 04/27/2024 08:08:43 43.3 36.0-45.2 (%) Final MCV 04/27/2024 08:08:43 89.5 81.5-97.5 (fL) Final MCH 04/27/2024 08:08:43 29.8 27.0-34.0 (pg) Final MCHC 04/27/2024 08:08:43 33.3 32.0-36.0 (g/dL) Final RDW 04/27/2024 08:08:43 12.9 11.5-15.5 (%) Final Platelets 04/27/2024 08:08:43 335 140-400 (K /uL) Final MPV 04/27/2024 08:08:43 10.5 6.6-11.1 ( fL) Final Performing Location LAB[facility]ATORY [facility] [place] [address] [place] [address]
--- OUTSIDE RECORDS SUMMARY | 2024-09-14 23:30 | External Medical Summary ---
Author Name Unknown Address Unknown Organization K[facility] [address] [address] Laboratory Report Ordering Provider Test Date Status QI ROMO 04/27/2024 09:09:00 Final Observation Date Value Abnormality Reference (Units ) Status Human papilloma virus E6+E7 mRNA [Presence] in Cervix by CHELE with probe detection 04/27/2024 09:09:00 Negative Not Applicable Final No high/intermediate-risk Hu man Papillomavirus (HPV E6/E7 messenger RNA) detected by nucleic acid amplification.

This assay looks for high/intermediate risk Human Papillomavirus (HPV E6/E7 messenger RNA) by nucleic acid amplification. This assay includes the qualitative detection of HPV types 16,18,31,33,35,39,45,51,52,56,58,59,66 and 68 from cervical specimens.
This assay has been FDA cleared for Thin prep collection vials.
This assay has not been approved for use as a primary screening test for HPV and should be tested in conjunction with a PAP screen.
If collected utilizing a Surepath vial, the collection and specimen preparation of this test was developed, and its performance characteristics determined by [facility]. It has not been cleared or approved by the U.S. Food and Drug Administration (FDA). The FDA has determined that such clearance or approval is not necessary.
This assay has been performed at [facility], [address] [place] [address], [place]. [address]. Performing Location LABORATORY [address] [address]
--- OUTSIDE RECORDS SUMMARY | 2024-09-14 23:30 | External Medical Summary | Summary of Care ---
Author Name Unknown Organization [facility] Address [address] [facility] [place] [address] Phone [phone] Care Team Providers Care Molding Machine Setter Name Role Phone Brigido Pérez MD Primary Care Provider + Reason for Visit * Reason Comments eRx-Medication Refill Encounter Details Date Type Department Care Team (Late st Contact Info) Description 03/21/2024 Refill Gastroenterology, [facility] [address] [place] [address] Franky Britt CRNP [address] [place] [address] Encounter for long-term (current) drug use* Allergies Active Allergy Reactions Criticality Noted Date Comments Adhesive Tape Rash 09/07/2018 Amoxicillin-Pot Clavulanate Diarrhea 01/20/20 19 Citalopram Hydrobromide Tachycardia 10/03/2013 Gluten 04/20/2014 Gluten Meal 09/07/2017 Latex Rash 08/02/2013 Sulfa Antibiotics Rash 03/20/2016 documented as of this encounter (statuses as of 03/29/2024) Medications Medication Sig Dispensed Refills Start Date [...] Capsule by mouth in the morning. Active Balsalazide Disodium 750 MG Oral CapsuleIndications: Crohn's disease of small intestine without complication (HCC) Take 1 Capsule by mouth in the morning and 1 Capsule at noon and 1 Capsule before bedtime. 270 Capsule 3 03/25/2023 Active Ondansetron HCl 4 MG Oral TabletIndications:B [...] IN THE MORNING 90 Capsule 03/22/2024 Active Omeprazole 20 MG Oral Capsule Delayed Release (PriLOSEC) Take 1 Capsule by mouth in the morning. 90 Capsule 3 03/25/2023 4 Discontinued documented as of this encounter (statuses as of 03/29/2024) Active Problems Problem Noted Date Diagnosed Date [...] as of this encounter (statuses as of 03/29/2024) Immunizations Name Administration Dates Next Due COVID-19 mRNA, LNP-s, No Pre serve, 2-Dose Series (DiBcom) 07/02/2022,08/14/2021,12/15/2020,2020 Pneumococcal Conjugate Vacci ne, 20-valent ([id number]) 11/25/2022 Seasonal Influenza, PF, 6 M & [...] encounter Miscellaneous Notes * Telephone Encounter - Marcie Castro - 03/29/2024 11:08 PM EDT Received message from [facility] regarding patient needing an appointment and labs. Patient was notified. Successfully contacted patient and provided [facility] message. * Telephone Encounter - Ruel Tinsley [facility] - 03/22/2024 1:30 PM EDTSigned Prescriptions: Disp Refills Omeprazole 20 MG Oral Capsule Delayed Rele*90 Cap*0 Sig: TAKE 1 CAPSULE IN THE MORNING Authorizing Provider: FRANKY BRITT Ordering User: RUEL TINSLEY * Telephone Encounter - Ruel Tinsley [facility] - 03/22/2024 1:28 PM EDT Please contact patient so that an appointment can be scheduled with her GASTROENTEROLOGY provider. Refill authorized to hold patient over in the mean time. Last Visit: 03/25/2023 (in office), 07/19/2021 (telemedicine) Next Visit: Visit date not found Ruel Joiner, PharmD Clinical Pharmacist [facility] ([facility]) [phone] 03/22/2024,1:28 PM * Telephone Encounter - Sandie Castro - 03/21/2024 4:36 AM EDTPending Prescriptions: Disp Refills Omeprazole 20 MG Oral Capsule Delayed Rele*90 Cap*3 Sig: TAKE 1 CAPSULE IN THE MORNING * Telephone Encounter - Sandie Castro - 03/21/2024 4:35 AM EDT Did you pend patient's preferred pharmacy and medication before forwarding?yes Pharmacy: [facility] Pending Prescriptions: Disp Refills Omeprazole 20 MG Oral Capsule Delayed Rel*90 Cap*3 Sig: TAKE 1 CAPSULE IN THE MORNING Last Visit: 03/25/2023 (in office), 07/19/2021 (telemedicine) Next Visit: Visit date not found If no future appointments scheduled, and last appointment is greater than a year ago, please schedule patient for a follow-up appointment Last date the medication was ordered: 03/25/2023 Is this request for a controlled substance?No Urine Drug Screen:No results found for this or any previous visit. Patient Phone Numbers Labs: Lab Results Component Value Date/Time CREAT 1.0 03/25/2023 10:06 AM CREAT 1.0 09/07/2018 03:48 PM POTASSIUM 4.9 03/25/2023 10:06 AM POTASSIUM 4.5 09/07/2018 03:48 PM TSH 3.36 01/08/2024 03:32 PM TSH 3.22 10/27/2019 03:44 PM LDLCALC 85 01/08/2024 03:32 PM LDLCALC UNINTERPRETABLE RESULT 09/07/2018 03:48 PM LDLDIRECT 160 (H) 09/07/2018 03:48 PM ALT 14 03/25/2023 10:06 AM ALT 7 (L) 12/15/2016 03:24 PM HGBA1C 5.1 09/07/2018 03:48 PM documented in this encounter Plan of Treatment Upcoming Encounters Date Type Department Care Team (Late st Contact Info) Description 04/27/2024 8:40 AM EDT Office Visit [facility] [address] [place] [address] Nas Lyn CRNP [address] [place] [address] 12/09/2024 12:40 PM EDT Office Visit [facility] [address] [place] [address] Brigido Pérez MD [address] [place] [address] Scheduled Orders Name Type Priority Associated Diagnoses Orde r Schedule VITAMIN B12 Lab Routine Encounter for long-term (current) drug use Expected: 03/22/2024 (Approximate), Expires: 03/22/2025 MAGNESIUM Lab Routine Encounter for long-term (current) drug use Expected: 03/22/2024 (Approximate), Expires: 03/22/2025 Scheduled Procedures Name Priority Associated Diagnoses Date/Ti me COLONOSCOPY FLEXIBLE PROXIMAL DIAGNOSTIC Recall Crohn's colitis (HCC) Health Maintenance Due Date Last Done Comments Hepatitis C Screening 1996 Hepatitis B Vaccine (1 of 3 - 19+ 3-dose series) 1997 HPV/Co-Test 2008 COVID-19 Vaccine ( season) 2023 07/02/2022, 08/14/2021, 12/15/2020, Additional history [...] as of this encounter Visit Diagnoses Diagnosis Encounter for long-term (current) drug use- Primary Encounter for long-term (current) use of other medications documented in this encounter Advance Directives * Full Code (Latest Code Status on File) Date Activated Date Inactivated Comments 08/09/2018 2:31 PM 08/10/2018 7:19 PM This order reflects the patients wishes and were consensually agreed upon. * Full Code Date Activated Date Inactivated Comments 08/09/2018 6:40 AM 08/09/2018 2:31 PM This order reflects the patients wishes and were consensually agreed upon. Care Teams Molding Machine Setter Relationship Specialty Start Date End Date Brigido Pérez MD [address] [place] [address] PCP - General Family Medicine 12/12/16 documented as of this encounter
--- OUTSIDE RECORDS SUMMARY | 2024-09-14 23:30 | External Medical Summary | Summary of Care ---
Author Name Unknown Organization [facility] Address [address] [facility] [place] [address] Phone [phone] Care Team Providers Care Transverse Abdominal Muscle Nurse Name Role Phone Brigido Pérez MD Primary [...] Nas Lyn CRNP [address] [place] [address] Referral ID Status Reason Start Date Expiration Date Visits Requested Visits Authorized [id number] Authorized Specialty Services Required 04/27/2024 999 999 [...] 8:40 AM EDT Office Visit Family Practice [facility] [address] [place] [address] Nas Lyn CRNP [address] [place] [address] Pap smear for cervical cancer screening*; Class [...] 03/22/2024 Active Balsalazide Disodium 750 MG Oral CapsuleIndications:Roof Assembler hn's disease of small intestine without complication [...] mRNA, LNP-s, No Pre serve, 2-Dose Series (iZettle) 07/02/2022,08/14/2021,12/15/2020,2020 Pneumococcal Conjugate Vacci ne, 20-valent ([id number]) 11/25/2022 Seasonal Influenza, PF, 6 M & [...] Number of children: 0 Occupational History 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 . no DV. 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 Likes-travel, sports, pianist, [...] Stability Do you currently live in a residential or have no steady place to sleep at night? (Adult - for ages 18 years and over): No Do you think you are at risk of becoming homeless? (Adult - for ages 18 years and over): No Family History Problem Relation Name Age of Onset Thyroid Disorder Mother multi-nodular thyroid. [facility]. Allergies Mother Sulfa Arthritis Mother Osteo Eye Problems Mother Cataract Hypertension Mother Heart Disorder Mother leaky valve Heart Disorder Father 52 age 62- [place]. smoked. Diabetes Father Type 2 Coronary Artery [...] Aunt (Unspecified) Crohns Heart Disorder Uncle (Unspecified) [place] Heart Disorder Uncle (Unspecified) [place] Heart Disorder Uncle (Unspecified) hx heart dx [...] Pap smear for cervical cancer screening - VIRTUAL ASSISTANT PAP SCREEN; Future 2. Class 1 obesity [...] separately billed services. Nas Lyn, MSN, [facility] documented in this encounter Nursing Notes * Lawson Llanos RN - 04/27/2024 8:30 AM EDT Chief Complaint Patient presents with PAP documented in this encounter Plan of Treatment Upcoming Encounters Date Type Department Care Team (Late st Contact Info) Description 04/29/2024 1:00 PM EDT Nutrition Services Nutrition, [facility] [address] [place] [address] Courtney Mendoza RDN [address] [place] [address] 12/09/2024 12:40 PM EDT Office Visit Family Practice [facility] [address] [place] [address] Brigido Pérez MD [address] [place] [address] Scheduled Orders Name Type Priority Associated Diagnoses Orde r Schedule VIRTUAL ASSISTANT PAP SCREEN Pathology Routine Pap smear for [...] and were consensually agreed upon. Care Teams Transverse Abdominal Muscle Nurse Relationship Specialty Start Date End Date Brigido Pérez MD [address] [place] [address] PCP - General Family Medicine 12/12/16 documented as of this encounter"
--- OUTSIDE RECORDS SUMMARY | 2024-09-14 23:30 | External Medical Summary | Summary of Care ---
Author Name Unknown Organization [facility] Address [address] [facility] [place] [address] Phone [phone] Care Team Providers Care Mailroom Coordinator Name Role Phone Brigido Pérez MD Primary Care Provider + Encounter Details Date Type Department Care Team (Late st Contact Info) Description 03/29/2024 Orders Only PATIENT PORTAL DO NOT DELETE THIS DEPT USED BY [place] [id number] Allergies Active Allergy Reactions Criticality Noted Date [...] morning. Active Balsalazide Disodium 750 MG Oral CapsuleIndications:Coiler Operator hn's disease of small intestine without complication (HCC) Take 1 Capsule by mouth in the morning and 1 Capsule at noon and 1 Capsule before bedtime. 270 Capsule 3 03/25/2023 Active Ondansetron HCl 4 MG Oral TabletIndications:Kevin [...] IN THE MORNING 90 Capsule 03/22/2024 Active documented as of this encounter (statuses [...] (Pfizer) 07/02/2022,08/14/2021,12/15/2020,2020 Pneumococcal Conjugate Vacci ne, 20-valent ([id number]) 11/25/2022 Seasonal Influenza, PF, 6 M & [...] No 12/08/2023 Does the household have a [facility] source of income? (Household - for ages [...] Description 04/27/2024 8:40 AM EDT Office Visit [facility] [address] [place] [address] Nas Lyn CRNP [address] [place] [address] 12/09/2024 12:40 PM EDT Office Visit [facility] [address] [place] [address] Brigido Pérez MD [address] [place] [address] Scheduled Procedures Name Priority Associated Diagnoses Date/Ti me COLONOSCOPY FLEXIBLE PROXIMAL DIAGNOSTIC Recall Crohn's colitis (HCC) Health Maintenance Due Date Last Done Comments Hepatitis C Screening 1996 Hepatitis B (1 of 3 - 19+ 3-dose series) 1997 HPV/Co-Test 2008 COVID-19 Vaccine ( season) 2023 07/02/2022, 08/14/2021, 12/15/2020, Additional history exists Cologuard 2023 Fecal Occult Blood Test 2023 Sigmoidoscopy 2023 Depression Screening 12/08/2024 12/09/2023 TSH 01/07/2025 01/08/2024, [...] Completed 11/25/2022 Influenza Vaccine (FLU shot) Completed , 07/24/2022, 08/09/2021, Additional history exists GARDASIL-HPV IMMUNIZATION SERIES Aged Out No longer eligible based on [...] and were consensually agreed upon. Care Teams Mailroom Coordinator Relationship Specialty Start Date End Date Brigido Pérez MD [address] [place] [address] PCP - General Family Medicine 12/12/16 documented as of this encounter
--- OUTSIDE RECORDS SUMMARY | 2024-09-14 23:30 | External Medical Summary ---
Author Name Unknown Address Unknown Organization [facility] [place] [address] [place] [address] Laboratory Report Ordering Provider Test Date Status JES BOWLES 04/27/2024 08:08:43 Final Observation Date Value Abnormality Reference (Units ) Status BUN 04/27/2024 08:08:43 10 6-20 (mg/dL) Final Creatinine 04/27/2024 08:08:43 1.2 Above high normal 0.5-1.0 (mg/dL) Final Glomerular filtration rate/1.73 sq M.predicted [Volume Rate/Area] in Serum, Plasma or Blood by Creatinine-based formula (CKD-EPI) 04/27/2024 08:08:43 59 Below low normal >=60 (mL/min) Final eGFR is calculated based on the CKD-EPI 2020 equation. Sodium 04/27/2024 08:08:43 141 135-146 (m mol/L) Final Potassium 04/27/2024 08:08:43 4.9 3.5-5.1 (m mol/L) Final Cl 04/27/2024 08:08:43 104 98-107 (mm ol/L) Final CO2 04/27/2024 08:08:43 28 22-32 (mmo l/L) Final Anion gap 04/27/2024 08:08:43 9 7-15 (mmol /L) Final Glucose 04/27/2024 08:08:43 95 70-120 (mg /dL) Final Albumin 04/27/2024 08:08:43 4.5 3.8-5.0 (g /dL) Final AST (Aspartate aminotransferase) 04/27/2024 08:08:43 22 10-35 (U/L) Final Alk Phos 04/27/2024 08:08:43 59 35-130 (U/ L) Final Bilirubin, Total 04/27/2024 08:08:43 0.4 <=1 .2 (mg/dL) Final Calcium 04/27/2024 08:08:43 10.1 8.4-10.2 ( mg/dL) Final Protein 04/27/2024 08:08:43 6.9 6.0-8.3 (g /dL) Final ALT (Alanine aminotransferase) 04/27/2024 08:08:43 15 10-35 (U/L) Final Performing Location LABORATORY [place] [address] [facility] [address]
[2024-09-15 03:01] VITALS: TEMP 98.1
[2024-09-15] MEDS: LEVOTHYROXINE SODIUM 100 MCG TABLET PO SCH (05:57)
--- NOTE | 2024-09-15 06:00 | Electrocardiogram Report ---
Test Reason : Blood Pressure : */* mmHG Vent. Rate : 96 BPM Atrial Rate : 96 BPM P-R Int : 142 ms QRS Dur : 80 ms QT Int : 366 ms P-R-T Axes : 75 66 48 degrees QTcB Int : 462 ms Poor data quality, interpretation may be adversely affected Normal sinus rhythm Possible Left atrial enlargement Nonspecific ST abnormality Abnormal ECG No previous ECGs available Confirmed by Sridhar Mueller ([id number]) on 09/15/2024 6:00:24 AM Referred By: Brigido Pérez Confirmed By: Sridhar Mueller
[2024-09-15 06:53] LABS: Hematocrit (blood only) 41.9 % (37.0-47.0); Hemoglobin 14.2 g/dl (12.0-16.0); Mean Corpuscular Hemoglobin 29.8 pg (25.0-34.0); Mean Corpuscular Hgb Conc 33.9 g/dL (32.0-36.0); Mean Corpuscular Volume 87.8 fL (80.0-100.0); Mean Platelet Volume 9.8 fL (9.4-12.4); Platelet Count 419 K/uL (130-400); RDW Coefficient of Variation 12.6 % (11.5-14.5); RDW Standard Deviation 40.8 fL (36.4-46.3); Red Blood Count 4.77 M/uL (4.20-5.40); White Blood Count 18.19 K/ul (4.8-10.8)
[2024-09-15 07:20] LABS: Albumin Globulin Ratio 1.3 (0.9-2); Albumin Level 4.1 gm/dl (3.4-5.0); BUN Creatinine Ratio 14.8 (10-20); Bilirubin,Total 0.3 mg/dl (0.2-1.0); Calcium 9.4 mg/dl (8.6-10.3); Creatinine Clr Calc Pharmacy 88.1 ml/min; Globulin 3.1 gm/dl (2.5-4.0); Magnesium 1.9 mg/dl (1.7-2.4); Phosphorus 3.4 mg/dl (2.5-4.9); Potassium 3.4 mmol/L (3.5-5.1); Total Protein 7.2 gm/dl (6.0-8.3)
[2024-09-15] MEDS: ACETAMINOPHEN 325 MG TAB PO PRN (07:23)
[2024-09-15 07:33] LABS: Thyroid Stimulating Hormone 12.341 uIu/ml (0.300-4.500)
[2024-09-15] MEDS: PANTOprazole 40 MG TAB PO SCH (07:57)
[2024-09-15] MEDS: ROSUVASTATIN CALCIUM 10 MG TAB PO SCH (07:57)
[2024-09-15] MEDS: MULTIVITAMIN TAB PO SCH (07:57)
[2024-09-15] MEDS: FLUTICASONE PROPIONATE NA SPR 16 GM BTL SCH (07:58)
[2024-09-15 08:09] LABS: T4 Free Thyroxine 0.73 ng/dl (0.61-1.60)
[2024-09-15] MEDS ORDERED: amLODIPine BESYLATE 5 MG TAB PO SCH (09:00)
[2024-09-15] MEDS: amLODIPine BESYLATE 5 MG TAB PO SCH (09:01)
--- OUTSIDE RECORDS SUMMARY | 2024-09-15 09:06 | External Medical Summary | Summary of Care ---
Author Name Unknown Organization [facility] Address [address] [facility] [place] [address] Phone [phone] Care Team Providers Care Nuclear Instructor Name Role Phone Brigido Pérez MD Primary Care Provider + Reason for Visit * Reason Onset Date Comments Advice 09/14/2024 Encounter Details Date Type Department Care Team (Late st Contact Info) Description 09/14/2024 Telephone Family Practice [facility] [address] [place] [id number] Brigido Pérez MD [address] [place] [address] Advice Allergies Active Allergy Reactions Criticality Noted Date Comments Adhesive Tape Rash 09/07/2018 Amoxicillin-Pot Clavulanate Diarrhea 01/20/20 19 Citalopram Hydrobromide Tachycardia 10/03/2013 Gluten 04/20/2014 Gluten Meal 09/07/2017 Latex Rash 08/02/2013 Sulfa Antibiotics Rash 03/20/2016 documented as of this encounter (statuses as of 09/14/2024) Medications WOMENS MULTI VITAMIN & MINERAL PO [...] DAILY 16 g 5 03/15/20 20 Active LORazepam 0.5 MG Oral Tablet (Ativan)Indication s:Irritable bowel syndrome, unspecified type,REANNA (generalized anxiety disorder) 1 TABLET EVERY 8 HOURS NEEDED FOR ANXIETY 20 Tablet 11/09/19 22 Active Additional Information Patient not taking.Reported on 09/13/2024 D3-1000 25 MCG (1000 UT) Oral Capsule (Cholecalciferol) Take 1 Capsule by mouth in the morning. Active Ondansetron HCl 4 MG Oral TabletIndications: Benign paroxysmal positional vertigo, unspecified laterality Take 1 Tablet by mouth every 6 hours as needed for Nausea. 30 Tablet 07/06/20 23 Active Additional Information Patient not taking.Reported on [...] BEDTIME 270 Capsule 1 07/04/20 24 Active COVID-19 At Home Antigen Test In Vitro KitIndications:Vir al URI with cough Use as directed. 1 Each 07/08/20 24 Active Additional Information Patient not taking.Reported on 09/13/2024 Azithromycin 250 MG Oral Tablet (Zithromax Z-Brad)Indications: Bronchitis, complicated Take two tablets by mouth on first day, then 1 tablet daily until gone 6 Tablet 07/14/20 24 Active Additional Information Patient not taking.Reported on 09/13/2024 predniSONE 20 MG Oral Tablet (Deltasone)Indicat ions:LRTI (lower respiratory tract infection),Acute bronchospasm 3 tabs by mouth daily for 3 days, then 2 tabs by mouth daily for 3 days, then 1 tab by mouth daily for 3 days. 18 Tablet 09/13/20 24 Active Albuterol Sulfate HFA 108 (90 Base) MCG/ACT Inhalation Aerosol SolutionIndication s:Acute bronchospasm Inhale 2 Puffs by mouth in the morning and 2 Puffs at noon and 2 Puffs in the evening and 2 Puffs before bedtime. 8 g 3 09/13/20 24 Active guaiFENesin ER 600 MG Oral Tablet Extended Release 12 Hour (Humibid LA)Indications:LRT I (lower respiratory tract infection),Acute bronchospasm Take 1 Tablet by mouth in the morning and 1 Tablet before bedtime. 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 (5 years old or older) Answer Entry Date Author No 08/09/2018 1:30 PM EST Daniella Leggett, RN documented in this encounter Miscellaneous Notes * Telephone Encounter - Melinda Akhtar LPN - 09/14/2024 10:45 AM EST Mihaela IBRAHMIelementary school teacher's aide nurse at [facility] calling about employee. BP 175/115 pulse 110. Spo2 96RA T99.4 R 18. Pt has headache,and tension in shoulder blades. No cp numbness or vision changes. Mihaela inquiring if pt should be sent to ER? Called office, spoke with Angela. Advised by Dr Pérez to send pt to ER for eval. Mihaela aware and will send pt to ER via ambulance. * Telephone Encounter - Neli Castillo OSA - 09/14/2024 10:42 AM EST Mihaela Linn RN at [facility] requesting to speak with a nurse. Transferred to dedicated nurse documented in this encounter Plan of Treatment Upcoming Encounters Date Type Department Care Team (Late st Contact Info) Description 10/19/2024 11:00 AM EST Office Visit Gastroenterology, [facility] [address] [place] [id number] Jos Britt CRNP [address] [place] [id number] 12/09/2024 12:40 PM EDT Office Visit Family Practice [facility] [address] [place] [address] Brigido Pérez MD [address] [place] [id number] Scheduled Procedures Name Priority Associated Diagnoses Date/Ti [...] and were consensually agreed upon. Care Teams Nuclear Instructor Relationship Specialty Start Date End Date Brigido Pérez MD [address] [place] [id number] PCP - General Family Medicine 12/12/16 documented as of this encounter
[2024-09-15 11:30] VITALS: BP 160/102; O2SAT 96
--- NOTE | 2024-09-15 12:31 | Discharge Summary ---
Discharge Summary Date of Service September 15, 2024 Principal Dx & Hospital Course #1 = Principal Diagnosis (1) Hypertensive urgency: (2) Heart palpitations: (3) Tachycardia: (4) Elevated troponin: (5) Upper respiratory infection: Notes For Next Care Provider Medication Changes From Visit Patient will be started on amlodipine 10 mg daily with follow-up as outpatient, patient was recommended to check her ambulatory blood pressure at home For URI, patient will be started on Mucinex DM twice daily. For elevated TSH of 12(TSH was 3 in November 2023) after options were given, patient decided and agreed on increasing the dose of Synthroid, this will be increased 225 mcg daily with follow-up TSH in 1 month after discharge. Admission HPI Per Admitting Provider Vanesa Casas is a 44-year-old female with past medical history significant for acquired hypothyroidism, dyslipidemia, GERD with esophagitis, Crohn's disease, low back pain with right-sided sciatica and exercise induced asthma who presented to the ED via EMS on 09/14/2024 for evaluation of multiple complaints including headache, heart palpitations and upper respiratory tract infection symptoms. History obtained from the patient and associated chart review. Patient seen at bedside with Dr. Caldera. Patient had elevated troponin which on follow-up came down and that was probably nothing clinically significant, EKG was unremarkable, echocardiogram was done which also showed normal ejection fraction without any other finding. Her headache responded to it 1 dose of NSAIDs. She had some cough with negative chest x-ray although with elevated WBC count of 18,000, overall this is expected in a URI, no particular viral antigen was found on her viral panel. Patient was decided and recommended to stay on Mucinex DM. In regard to her elevated TSH of 12, we agreed on increasing the Synthroid from 100 mcg daily to 125 mcg daily with follow-up TSH in 1 month. Patient will be discharged home with follow-up as outpatient. Updated Medication List Medication Instructions Recorded Confirmed Type albuterol sulfate 90 mcg/actuation 2 puff inhalation QID PRN 09/14/24 09/14/24 History aerosol inhaler SOB/Wheezing balsalazide 750 mg capsule 750 mg PO TID 09/14/24 09/14/24 History fluticasone propionate 50 2 spray intranasal BID PRN as 09/14/24 09/14/24 History mcg/actuation nasal directed spray,suspension guaifenesin 600 mg tablet, 600 mg PO AMHS 09/14/24 09/14/24 History extended release 12 hr loratadine 10 mg tablet (Claritin) 10 mg PO HS 09/14/24 09/14/24 History mportpfo-ott-vwvr-FA-Ca carb-vit K 1 tab PO DAILY 09/14/24 09/14/24 History 18 mg iron-400 mcg-500 mg tablet norethindrone 1 mg-ethinyl 1 tab PO DAILY 09/14/24 09/14/24 History estradiol 20 mcg (21)-iron 75 mg (7) tablet (Eliana Fe 10/17 (28)) omeprazole 20 mg capsule,delayed 20 mg PO QAM 09/14/24 09/14/24 History release prednisone 20 mg tablet 20 mg PO UD 09/14/24 09/14/24 History rosuvastatin 10 mg tablet 10 mg PO QAM 09/14/24 09/14/24 History amlodipine 10 mg tablet 10 mg PO DAILY #30 tabs 09/15/24 Rx dextromethorphan-guaifenesin 30 1 tab PO BID #14 tabs 09/15/24 Rx mg-600 mg tablet extended hr (Mucinex DM) levothyroxine 125 mcg tablet 125 mcg PO DAILY #30 tabs 09/15/24 Rx (Synthroid) Hospital Stay Data Consultations 09/14/24 15:06 ED Decision to Admit Stat Diagnostic Imagining Performed 09/14/24 12:12 CT head/brain wo con Stat Pending Results Patient Have Any Pending Studies at Discharge: No Discharge Instructions Given to Patient (Per Discharging Provider) Patient is going to be on 125 mcg of Synthroid instead of 100 mcg, I recommended patient to recheck her TSH in 1 month Total Time Total Time Spent Total Time Spent (In Minutes): More than 35 minutes
[2024-09-15 12:34] VITALS: PULSE 107
--- NOTE | 2024-09-16 21:30 | Electrocardiogram Report ---
Test Reason : Blood Pressure : */* mmHG Vent. Rate : 105 BPM Atrial Rate : 105 BPM P-R Int : 132 ms QRS Dur : 86 ms QT Int : 354 ms P-R-T Axes : 54 51 26 degrees QTcB Int : 467 ms Sinus tachycardia Nonspecific ST and T wave abnormality Abnormal ECG When compared with ECG of 14-Sep-2024 11:53, No significant change was found Confirmed by Sridhar Mueller ([id number]) on 09/16/2024 9:30:24 PM Referred By: Brigido Pérez Confirmed By: Sridhar Mueller
== END 2024-09-15 15:10 | disposition home or self-care (01) | DRG 305 ==
LOC: ED 11:45 → 2N 15:29 → SUATTDRO 15:29 → 2N 16:46